=== PATIENT | male | born 1990 | race Caucasian/White ===

== ENCOUNTER 2017-03-30 10:57 | Emergency (ER) | payer BC, OTHER ==
[~2017-03-30] VITALS: Ht 167.6 cm; Wt 74.6 kg
[~2017-03-30 10:57] MED LIST: CELE10TA PO; DOCU10ELUD PO; PRIL40CA PO; SUCR1SUS PO; no meds
[2017-03-30 12:00] LABS: MEAN CORPUSCULAR HGB CONC 34.3 g/dl (32.0-36.5); MEAN CORPUSCULAR VOLUME 93.2 fl (80.0-96.0); RED CELL DISTRIBUTION WIDTH 12.8 % (11.5-14.5)
[2017-03-30 12:39] LABS: ALBUMIN/GLOBULIN RATIO 1.21 (1.00-1.93); ALKALINE PHOSPHATASE 86 U/L (45-117); ALT/SGPT 29 U/L (12-78); ANION GAP 8 MEQ/L (8-16); AST/SGOT 18 U/L (15-37); BILIRUBIN,DIRECT 0.2 MG/DL (0.0-0.2); BILIRUBIN,TOTAL 0.9 MG/DL (0.2-1.0); BLOOD UREA NITROGEN 10 MG/DL (7-18); CALCIUM LEVEL 9.2 MG/DL (8.5-10.1); CARBON DIOXIDE LEVEL 26 MEQ/L (21-32); CHLORIDE LEVEL 107 MEQ/L (98-107); CREATININE FOR GFR 1.16 MG/DL (0.70-1.30); GLOMERULAR FILTRATION RATE > 60.0 (>60); GLUCOSE, FASTING 124 MG/DL (70-105); POTASSIUM SERUM 3.8 MEQ/L (3.5-5.1); SODIUM LEVEL 141 MEQ/L (136-145); TOTAL PROTEIN 7.3 GM/DL (6.4-8.2)
[2017-03-30 13:12] LABS: METHADONE URINE NEGATIVE (NEGATIVE)
[2017-03-30 14:43] VITALS: BP 132/75
== END 2017-03-30 14:46 | disposition home or self-care (01) ==
LOC: M ED 10:57
DX: F32.9 Major depressive disorder, single episode, unspecified (principal); F14.10 Cocaine abuse, uncomplicated; F17.210 Nicotine dependence, cigarettes, uncomplicated

== ENCOUNTER → 2017-04-01 | Outpatient (CLI) | payer MEDICAID | LOC: M OUTALCOH 08:00 | PROVIDERS: ATTEND Psychiatry & Neurology Psychiatry | DX: F10.20 Alcohol dependence, uncomplicated (principal) ==

== ENCOUNTER 2017-06-11 11:41 | Emergency (ER) | payer MEDICAID, OTHER ==
[2017-06-11 14:13] VITALS: BP 131/71
== END 2017-06-11 16:35 | disposition home or self-care (01) ==
LOC: M ED 11:41
DX: F33.9 Major depressive disorder, recurrent, unspecified (principal); F43.0 Acute stress reaction

== ENCOUNTER 2018-03-23 14:54 | Emergency (ER) | payer MEDICAID, SELFPAY, OTHER ==
[2018-03-23 16:03] LABS: KETONE, URINE AUTO RFX NEGATIVE (NEGATIVE); LEUKOCYTE ESTERASE UR AUTO RFX 3+ (NEGATIVE); NITRITE, URINE AUTO RFX NEGATIVE (NEGATIVE); RBC, URINE AUTO RFX 8 /HPF (0-3); SPECIFIC GRAVITY UR AUTO RFX 1.026 (1.002-1.035); SQUAM EPITHELIAL CELL UR AURFX 0 /HPF (0-6); WBC, URINE AUTO RFX 133 /HPF (0-3)
[2018-03-23] MEDS: cefTRIAXone SOD 250 MG VIAL (J0696) IM ×2 (16:28)
[2018-03-23] MEDS: AZITHROMYCIN 250 MG TAB PO ×2 (16:30)
[2018-03-23 17:24] LABS: CHLAMYDIA DNA AMPLIFICATION NEGATIVE (NEGATIVE); GC DNA AMPLIFICATION POSITIVE (NEGATIVE)
== END 2018-03-23 16:51 | disposition home or self-care (01) ==
LOC: M ED 14:54
DX: N30.00 Acute cystitis without hematuria (principal); Z11.3 Encounter for screening for infections with a predominantly sexual mode of transmission; K21.9 Gastro-esophageal reflux disease without esophagitis; F41.9 Anxiety disorder, unspecified; F32.9 Major depressive disorder, single episode, unspecified; F17.200 Nicotine dependence, unspecified, uncomplicated
CPT/HCPCS: J0696

== ENCOUNTER → 2018-12-01 | Outpatient (REF) | payer OTHER ==
[~2018-12-01] MED LIST changes: +BACT800T5 PO
== END ==
LOC: M SFHCLERA 13:52
PROVIDERS: ATTEND Nurse Practitioner Family
DX: R53.81 Other malaise (principal)

== ENCOUNTER 2020-08-02 04:11 | Emergency (ER) | payer OTHER ==
[~2020-08-02] VITALS: Ht 170.2 cm; Wt 63.6 kg
[~2020-08-02 04:11] MED LIST changes: -DOCU10ELUD PO; +DOCU5LIQ PO
[2020-08-02] MEDS ORDERED: cloNIDine 0.1 MG TAB PO ONE (05:00)
[2020-08-02] MEDS ORDERED: hydrOXYzine 25 MG TAB PO ONE (05:00)
[2020-08-02] MEDS ORDERED: ONDANSETRON 4 MG ORAL DISINTEGRATING TAB PO ONE (05:00)
[2020-08-02] MEDS ORDERED: ONDA4TAB6 PO ×2 (05:02→05:37)
[2020-08-02] MEDS ORDERED: CLONI1TA PO ×2 (05:02→05:37)
[2020-08-02] MEDS ORDERED: HYDR-3363 PO ×2 (05:02→05:37)
[2020-08-02 05:09] VITALS: BP 148/80
[2020-08-02 05:15] VITALS: BP 126/75
== END 2020-08-02 05:35 | disposition home or self-care (01) ==
LOC: M ED 04:11
DX: F11.23 Opioid dependence with withdrawal (principal); F17.210 Nicotine dependence, cigarettes, uncomplicated
CPT/HCPCS: 99284; Q0162

== ENCOUNTER 2020-10-31 02:04 | Emergency (ER) | payer OTHER ==
[~2020-10-31] VITALS: Ht 170.2 cm; Wt 63.5 kg
[~2020-10-31 02:04] MED LIST changes: +CLONI1TA PO; +HYDR-3363 PO; +ONDA4TAB6 PO
--- OUTSIDE RECORDS SUMMARY | 2020-10-31 02:09 | CCD | Continuity of Care Document ---
Author Author Mirza BARRERA [employer] Organization Unknown Address [address] [place] [id number] Phone [phone] Problems Description No Information Available Social History Type Date Description Comments Sex Unknown Tobacco Use Start: Unknown Heavy tobacco smoker (more than 10 cigarettes/day) Smoking Status Reviewed: 08/07/20 Heavy tobacco smoker (more than 10 cigarettes/day) Allergies, Adverse Reactions, Alerts Description No Known Drug Allergies Medications Active Medications SIG Qnty Indications Ordering Provide r Date Clonidine HCL 0.1mg Tablets 1 twice a day as needed 60tabs Melissa Barrera NP 08/07/2020 Naltrexone HCL 50mg Tablets 1/2 tablet first one or two days, then 1 by mouth every day 30tabs F11.20 Melissa Barrera NP 08/07/2020 Immunizations Description No Information Available Vital Signs Description No Information Available Results Test Acquired Date Facility Test Result H/L Range Note Drugs Of Abuse Urine -RL 08/07/2020 [facility] Amphetamines,Urine NEGATIVE [id number] (Neg) Barbiturates,Urine NEGATIVE [id number] (Neg) Benzodiazepine,Urine NEGATIVE ROMXHI923 (Neg) Cannabinoids,Urine NEGATIVE FLQUYK96 (Neg) Cocaine,Urine NEGATIVE FLCNWC164 (Neg) Opiates,Urine POSITIVE REXOIZ096 (Neg) 1 Phencyclidine,Urine NEGATIVE MZFTVS75 (Neg) Please Note: THESE ARE SCREEN <SEE NOTE> 2 1 SPECIMEN HAS BEEN SENT FOR C ONFIRMATION. NOTE: Oxycodone is not sufficiently detected by this screening assay. A more sensitive assay is available upon request. 2 THESE ARE SCREENING IMMUNOAS SAY TESTS THAT ARE REPORTED POSITIVE WHEN THE RESULTS EXCEED THE THRESHOLD (CUTOFF) INDICATED. A LIST OF POTENTIAL INTERFERENCES FOR EACH METHOD CAN BE MADE AVAILABLE UPON REQUEST. A CONFIRMATORY ANALYSIS IS ORDERED ON ALL DRUG CLASSES SCREENING POSITIVE BY THIS METHOD. * * * * * * * * * * * * * * * THIS ASSAY IS NOT INTENDED TO BE USED FOR MONITORING MEDICATION COMPLIANCE. Unless otherwise specified, testing performed by [facility] [address] [place] [id number] Procedures Description No Information Available Medical Devices Description No Information Available Encounters Type Date Location Provider Dx Diagnosis Office Visit 08/07/2020 1:20p [facility] Melissa Barrera NP F11.20 Opioid dependence, uncomplicated F41.9 Anxiety disorder, unspecifie d F17.210 Nicotine dependence, cigaret pam, uncomplicated Z13.31 Encounter for screening for depression Assessments Date Code Description Provider 08/07/2020 F11.20 Opioid dependence, uncomplicated Melissa Barrera NP 08/07/2020 F41.9 Anxiety disorder, unspecified Ho Melissa jalloh NP 08/07/2020 F17.210 Nicotine dependence, cigarettes, uncomplicated Melissa Barrera NP 08/07/2020 Z13.31 Encounter for screening for depr ession Melissa Barrera NP Plan of Treatment 08/07/2020 - Melissa Barrera NP* F11.20 Opioid dependence, uncomplicated* New Medication:* Naltrexone HCL 50 mg - 1/2 tablet first one or two days, then 1 by mouth every day * F41.9 Anxiety disorder, unspecified * F17.210 Nicotine dependence, cigarettes, uncomplicated * Z13.31 Encounter for screening for depression Functional Status Description No Information Available Mental Status Description No Information Available Referrals Description No Information Available
--- OUTSIDE RECORDS SUMMARY | 2020-10-31 02:09 | CCD | Continuity of Care Document ---
Author Author Mirza BARRERA NP Organization Unknown Address [address] [place] [id number] Phone [phone] Problems Description No Information Available Social History Type Date Description Comments Sex Unknown Allergies, Adverse Reactions, Alerts Description No Known [...] Vital Signs Description No Information Available Results Description No Information Available Procedures Description No Information Available Medical Devices Description No Information Available Encounters Description No Information Available Assessments Description No Information Available Plan of Treatment 08/07/2020 - Melissa Barrera NP* All * New Medication:* Clonidine HCL 0.1 mg - 1 twice a day as needed * Naltrexone HCL 50 mg - 1/2 tablet first one or two days, then 1 by mouth every day Functional Status Description No Information Available Mental Status Description No Information Available Referrals Description No Information Available
--- OUTSIDE RECORDS SUMMARY | 2020-10-31 02:09 | CCD ---
Author Author [facility] Organization [facility] Address Unknown Phone Unavailable Care Team Providers Care Interlocker Maintainer Name Role Phone Nikos Bueno Unavailable PROBLEMS Type Condition ICD9-CM Code NEV97-GS Code Onset Dates Condition S tatus SNOMED Code Notes Problem Opioid abuse F11.10 Active 6689736 Problem Anxiety disorder, unspecified F41.9 Active 23 4586693 Problem Cannabis abuse, unspecified F12.10 Active 3734 4009 Problem Tobacco use disorder F17.200 Active 132683324 ALLERGIES No Known Allergies ENCOUNTERS from 1990 to 2020-09-17 Encounter Location Date Provider Diagnosis [facility] Resident [address] [place] [address] Aug, Nikos Bueno IMMUNIZATIONS No Information SOCIAL HISTORY Sex Assigned At : Social History Observation Description Sex Assigned At Unknown Audit Question Answer Notes Total Score: 0 Interpretation: Alcohol Education Sexual Hx: Question Answer Notes Had sex in the last 12 months (vaginal, oral, or anal)? Yes with Women only Use protection? No Alcohol Screening: Question Answer Notes Did you have a drink containing alcohol in the past year? No Points 0 Interpretation Negative REASON FOR REFERRAL No Information VITAL SIGNS No information MEDICATIONS Medication SIG (Take, Route, Frequency, Duration) Notes Start Da te End Date Status Ibuprofen 800 MG 1 tablet Orally four times d aily as needed for pain take with food for 10 day(s) Nov, Active Day Time Cold/Flu Relief 10-5-325 MG 2 capsules as nee ded Orally every 4 hrs for 5 day(s) Nov, Not-Taking PROCEDURES No Information RESULTS No Results REASON FOR VISIT no showed MEDICAL (GENERAL) HISTORY Type Description Date Medical History tobacco abuse Medical History depression and anxiety Medical History opioid abuse Medical History marijuana abuse Surgical History No Surgical history information Hospitalization History mental health 11/2012 [place] No Information Health Concerns No Information MEDICAL EQUIPMENT No Information MENTAL STATUS No Information FUNCTIONAL STATUS No Information ASSESSMENTS No Information PLAN OF TREATMENT No Information Insurance Providers Payer Name Payer Address Payer Phone Insured Name Patient Relati onship to Insured Coverage Start Date Coverage End Date [facility] DEPT [place] [phone] DANAE ZULUAGA self
--- OUTSIDE RECORDS SUMMARY | 2020-10-31 02:10 | CCD ---
Author Author [facility] Organization [facility] Address Unknown Phone Unavailable Care Team Providers Care Fire Control Technician B Name Role Phone Ben PORTER MD Unavailable Unavailable Ben PORTER MD Unavailable Unavailable Ben PORTER MD Unavailable Unavailable CHARLOTTEBen VASQUEZ MD Unavailable Unavailable Ben PORTER MD Unavailable Unavailable Ben PORTER MD Unavailable Unavailable Ben PORTER MD Unavailable Unavailable Ben PORTER MD Unavailable Unavailable CHARLOTTEBen VASQUEZ MD Unavailable Unavailable CHARLOTTEBen VASQUEZ MD Unavailable Unavailable CHARLOTTEBen VASQUEZ MD Unavailable Unavailable Ben PORTER MD Unavailable Unavailable Ben PORTER MD Unavailable Unavailable Ben PORTER MD Unavailable Unavailable Ben PORTER MD Unavailable Unavailable Ben PORTER MD Unavailable Unavailable Ben PORTER MD Unavailable Unavailable Ben PORTER MD Unavailable Unavailable Ben PORTER MD Unavailable Unavailable Ben PORTER MD Unavailable Unavailable Ben PORTER MD Unavailable Unavailable Ben PORTER MD Unavailable Unavailable Ben PORTER MD Unavailable Unavailable Ben PORTER MD Unavailable Unavailable Ben PORTER MD Unavailable Unavailable Ben PORTER MD Unavailable Unavailable Ben PORTER MD Unavailable Unavailable CHARLOTTE, Ben VILLARREAL MD Unavailable Unavailable CHARLOTTE, Ben VILLARREAL MD Unavailable Unavailable CHARLOTTE, Ben VILLARREAL MD Unavailable Unavailable CHARLOTTE, Ben VILLARREAL MD Unavailable Unavailable CHARLOTTE, Ben VILLARREAL MD Unavailable Unavailable CHARLOTTE, Ben VILLARREAL MD Unavailable Unavailable CHARLOTTE, Ben VILLARREAL MD Unavailable Unavailable CHARLOTTE, Ben VILLARREAL MD Unavailable Unavailable CHARLOTTE, Ben VILLARREAL MD Unavailable Unavailable CHARLOTTE, Ben VILLARREAL MD Unavailable Unavailable CHARLOTTE, Ben VILLARREAL MD Unavailable Unavailable CHARLOTTE, Ben VILLARREAL MD Unavailable Unavailable CHARLOTTE, Ben VILLARREAL MD Unavailable Unavailable CHARLOTTE, Ben VILLARREAL MD Unavailable Unavailable CHARLOTTE, Ben VILLARREAL MD Unavailable Unavailable CHARLOTTE, Ben VILLARREAL MD Unavailable Unavailable Lashawn Alegre MD Unavailable Unavailable Lashawn Alegre MD Unavailable Unavailable Lashawn Alegre MD Unavailable Unavailable Lashawn Alegre MD Unavailable Unavailable Lashawn Alegre MD Unavailable Unavailable Lashawn Alegre MD Unavailable Unavailable Lashawn Alegre MD Unavailable Unavailable REASON, L EDWARD DO Unavailable Unavailable REASON, L EDWARD DO Unavailable Unavailable REASON, L EDWARD DO Unavailable Unavailable REASON, L EDWARD DO Unavailable Unavailable REASON, L EDWARD DO Unavailable Unavailable REASON, L EDWARD DO Unavailable Unavailable REASON, L EDWARD DO Unavailable Unavailable REASON, L EDWARD DO Unavailable Unavailable REASON, L EDWARD DO Unavailable Unavailable REASON, L EDWARD DO Unavailable Unavailable REASON, L EDWARD DO Unavailable Unavailable REASON, L EDWARD DO Unavailable Unavailable REASON, L EDWARD DO Unavailable Unavailable REASON, L EDWARD DO Unavailable Unavailable REASON, L EDWARD DO Unavailable Unavailable REASON, L EDWARD DO Unavailable Unavailable REASON, L EDWARD DO Unavailable Unavailable REASON, L EDWARD DO Unavailable Unavailable REASON, L EDWARD DO Unavailable Unavailable REASON, L EDWARD DO Unavailable Unavailable REASON, L EDWARD DO Unavailable Unavailable REASON, L EDWARD DO Unavailable Unavailable REASON, L EDWARD DO Unavailable Unavailable REASON, L EDWARD DO Unavailable Unavailable REASON, L EDWARD DO Unavailable Unavailable REASON, L EDWARD DO Unavailable Unavailable REASON, L EDWARD DO Unavailable Unavailable REASON, L EDWARD DO Unavailable Unavailable REASON, L EDWARD DO Unavailable Unavailable REASON, L EDWARD DO Unavailable Unavailable REASON, L EDWARD DO Unavailable Unavailable REASON, L EDWARD DO Unavailable Unavailable REASON, L EDWARD DO Unavailable Unavailable REASON, L EDWARD DO Unavailable Unavailable REASON, L EDWARD DO Unavailable Unavailable REASON, L EDWARD DO Unavailable Unavailable REASON, L EDWARD DO Unavailable Unavailable REASON, L EDWARD DO Unavailable Unavailable REASON, L EDWARD DO Unavailable Unavailable REASON, L EDWARD DO Unavailable Unavailable REASON, L EDWARD DO Unavailable Unavailable REASON, L EDWARD DO Unavailable Unavailable REASON, L EDWARD DO Unavailable Unavailable REASON, L EDWARD DO Unavailable Unavailable REASON, L EDWARD DO Unavailable Unavailable REASON, L EDWARD DO Unavailable Unavailable REASON, L EDWARD DO Unavailable Unavailable REASON, L EDWARD DO Unavailable Unavailable REASON, L EDWARD DO Unavailable Unavailable REASON, L EDWARD DO Unavailable Unavailable REASON, L EDWARD DO Unavailable Unavailable REASON, L EDWARD DO Unavailable Unavailable REASON, L EDWARD DO Unavailable Unavailable REASON, L EDWARD DO Unavailable Unavailable REASON, L EDWARD DO Unavailable Unavailable REASON, L EDWARD DO Unavailable Unavailable REASON, L EDWARD DO Unavailable Unavailable REASON, L EDWARD DO Unavailable Unavailable REASON, L EDWARD DO Unavailable Unavailable REASON, L EDWARD DO Unavailable Unavailable REASON, L EDWARD DO Unavailable Unavailable REASON, L EDWARD DO Unavailable Unavailable REASON, L EDWARD DO Unavailable Unavailable REASON, L EDWARD DO Unavailable Unavailable REASON, L EDWARD DO Unavailable Unavailable Teresa Sesay, [place] Unavailable Unavailable Zesemaj Jr, Elier Dyson DO Unavailable Unavailable Zesemaj Jr, Elier Kiel DO Unavailable Unavailable Zewe Jr, Elier Kiel DO Unavailable Unavailable Zewe Jr, Elier Kiel DO Unavailable Unavailable Zewe Jr, Elier Kiel DO Unavailable Unavailable Delgado, E Melissa Unavailable Unavailable Delgado, E Melissa Unavailable Unavailable Delgado, E Melissa Unavailable Unavailable Delgado, E Melissa Unavailable Unavailable Delgado, E Melissa Unavailable Unavailable Delgado, E Melissa Unavailable Unavailable Delgado, E Melissa Unavailable Unavailable Delgado, E Melissa Unavailable Unavailable Delgado, E Melissa Unavailable Unavailable Delgado, E Melissa Unavailable Unavailable Delgado, E Melissa Unavailable Unavailable Delgado, E Melissa Unavailable Unavailable Delgado, E Melissa Unavailable Unavailable Delgado, E Melissa Unavailable Unavailable Delgado, E Melissa Unavailable Unavailable Delgado, E Melissa Unavailable Unavailable To, F Eiler PA Unavailable Unavailable To, F Elier PA Unavailable Unavailable To, F Elier PA Unavailable Unavailable To, F Elier PA Unavailable Unavailable To, F Elier PA Unavailable Unavailable To, F Elier PA Unavailable Unavailable To, F Elier PA Unavailable Unavailable Simpson, F Elier PA Unavailable Unavailable Simpson, F Elier PA Unavailable Unavailable To, F Elier PA Unavailable Unavailable DOMENICA IV, L DIANA PHOTOENGRAVING PROOFER APPRENTICE Unavailable Unavailable DOMENICA IV, L DIANA PHOTOENGRAVING PROOFER APPRENTICE Unavailable Unavailable DOMENICA IV, L DIANA PHOTOENGRAVING PROOFER APPRENTICE Unavailable Unavailable DOMENICA IV, L DIANA PHOTOENGRAVING PROOFER APPRENTICE Unavailable Unavailable DOMENICA IV, L DIANA PHOTOENGRAVING PROOFER APPRENTICE Unavailable Unavailable DOMENICA IV, L DIANA PHOTOENGRAVING PROOFER APPRENTICE Unavailable Unavailable DOMENICA IV, L DIANA PHOTOENGRAVING PROOFER APPRENTICE Unavailable Unavailable DOMENICA IV, L DIANA PHOTOENGRAVING PROOFER APPRENTICE Unavailable Unavailable DOMENICA IV, L DIANA PHOTOENGRAVING PROOFER APPRENTICE Unavailable Unavailable DOMENICA IV, L DIANA PHOTOENGRAVING PROOFER APPRENTICE Unavailable Unavailable DOMENICA IV, L DIANA PHOTOENGRAVING PROOFER APPRENTICE Unavailable Unavailable DOMENICA IV, L DIANA PHOTOENGRAVING PROOFER APPRENTICE Unavailable Unavailable DOMENICA IV, L DIANA PHOTOENGRAVING PROOFER APPRENTICE Unavailable Unavailable DOMENICA IV, L DIANA PHOTOENGRAVING PROOFER APPRENTICE Unavailable Unavailable DOMENICA IV, L DIANA PHOTOENGRAVING PROOFER APPRENTICE Unavailable Unavailable DOMENICA IV, L DIANA PHOTOENGRAVING PROOFER APPRENTICE Unavailable Unavailable DOMENICA IV, L DIANA PHOTOENGRAVING PROOFER APPRENTICE Unavailable Unavailable DOMENICA IV, L DIANA PHOTOENGRAVING PROOFER APPRENTICE Unavailable Unavailable DOMENICA IV, L DIANA PHOTOENGRAVING PROOFER APPRENTICE Unavailable Unavailable DOMENICA IV, L DIANA PHOTOENGRAVING PROOFER APPRENTICE Unavailable Unavailable DOMENICA IV, L DIAAN PHOTOENGRAVING PROOFER APPRENTICE Unavailable Unavailable DOMENICA IV, L DIANA PHOTOENGRAVING PROOFER APPRENTICE Unavailable Unavailable DOMENICA IV, L DIANA PHOTOENGRAVING PROOFER APPRENTICE Unavailable Unavailable DOMENICA IV, L DIANA PHOTOENGRAVING PROOFER APPRENTICE Unavailable Unavailable DOMENICA IV, L DIANA PHOTOENGRAVING PROOFER APPRENTICE Unavailable Unavailable DOMENICA IV, L DIANA PHOTOENGRAVING PROOFER APPRENTICE Unavailable Unavailable DOMENICA IV, L DIANA PHOTOENGRAVING PROOFER APPRENTICE Unavailable Unavailable DOMENICA IV, L DIANA PHOTOENGRAVING PROOFER APPRENTICE Unavailable Unavailable DOMENICA IV, L DIANA PHOTOENGRAVING PROOFER APPRENTICE Unavailable Unavailable DOMENICA IV, L DIANA PHOTOENGRAVING PROOFER APPRENTICE Unavailable Unavailable DOMENICA IV, L DIANA PHOTOENGRAVING PROOFER APPRENTICE Unavailable Unavailable DOMENICA IV, L DIANA PHOTOENGRAVING PROOFER APPRENTICE Unavailable Unavailable Kiel Hurtado Jr DO Unavailable Unavailable Re-disclosure Warning The records that you are about to access may contain information from federally-assisted alcohol or drug abuse programs. If such information is present, then the following federally mandated warning applies: This information has been disclosed to you from records protected by federal confidentiality rules (42 CFR part 2). The federal rules prohibit you from making any further disclosure of this information unless further disclosure is expressly permitted by the written consent of the person to whom it pertains or as otherwise permitted by 42 CFR part 2. A general authorization for the release of medical or other information is NOT sufficient for this purpose. The Federal rules restrict any use of the information to criminally investigate or prosecute any alcohol or drug abuse patient.The records that you are about to access may contain highly sensitive health information, the redisclosure of which is protected by Article 27-F of the [facility] Public Health law. If you continue you may have access to information: Regarding HIV / AIDS; Provided by facilities licensed or operated by the [facility] Office of Mental Health; or Provided by the [facility] Office for People With Developmental Disabilities. If such information is present, then the following [facility] mandated warning applies: This information has been disclosed to you from confidential records which are protected by state law. State law prohibits you from making any further disclosure of this information without the specific written consent of the person to whom it pertains, or as otherwise permitted by law. Any unauthorized further disclosure in violation of state law may result in a fine or care home sentence or both. A general authorization for the release of medical or other information is NOT sufficient authorization for further disc losure. Allergies and Adverse Reactions Type Description Substance Reaction Status Data Source(s ) Drug allergy Drug allergy No Known Allergies [facility] Family History Family Member Name Family Member Gender Family Member Status Date o f Status Description Data Source(s) Unknown Male Problem MEDENT ([facility]) Unknown Male Problem MEDENT ([facility] Unknown Unknown Problem [facility] ([facility] Encounters Encounter Providers Location Date Indications Data Source(s ) Unknown [address] [facility] [address] 09/16/2020 12:00:00 AM EST eCW1 ([facility]) Outpatient Attender: Melissa Yun 08/07/2020 12:20:00 PM EST MEDENT ([facility]) Outpatient CPSCAORT-LABEJN 08/05/2020 10:03:00 AM EST [facility] Inpatient Attender: LOLY REASON DOAdmitter: LOLY MEJIA N DO ED-MSP 08/04/2020 11:29:00 PM EST - 08/06/2020 01:45:00 PM EST F11.20 [facility] F11.20 Patient discharged. Outpatient ED-CHEPAT 01/10/2020 02:00 :00 PM EDT - 01/10/2020 02:01:00 PM EDT [facility] PSD Patient discharged. Outpatient CPSCAORT-LABEJCici 01/07/2020 10:10:00 AM EDT [facility] Inpatient Attender: Jr Kiel Morrell OAttender: Kiel Hurtado JrAdmitter: Kiel Hurtado Jr [facility] 01/06/2020 05:14:00 PM EDT - 01/08/2020 01:15:00 PM EDT F19.20 [facility] F19.20 Patient discharged. Outpatient Attender: DIANA METZGER IV ED-[facility] 2019 03:28:00 PM EDT - 12/18/2019 03:29:00 PM EDT [facility] PSD Patient discharged. Outpatient Attender: DIANA METZGER ED-[facility] 2019 02:37:00 PM EDT - 12/13/2019 02:38:00 PM EDT [facility] PSD Patient discharged. Outpatient Attender: DIANA DOMENICA LENA ED-[facility] 2019 12:53:00 PM EDT - 12/04/2019 12:54:00 PM EDT [facility] PSD Patient discharged. Outpatient Attender: DIANA DOMENICA LENA [facility] 2019 10:09:00 AM EST - 11/20/2019 10:10:00 AM EST [facility] Patient discharged. Outpatient Attender: DIANA METZGER IVAttender: MARTHA Sesay [facility] 11/13/2019 10:08:00 AM EST - 11/13/2019 10:09:00 AM EST [facility] Patient discharged. Outpatient Attender: DIANA METZGER IV [facility] 2019 03:58:00 PM EST - 10/17/2019 03:59:00 PM EST [facility] Patient discharged. Outpatient Attender: MARTHA Sesay -[facility] 10/11/2019 02:04:00 PM EST - 10/11/2019 02:05:00 PM EST [facility] Patient discharged. Outpatient Attender: DIANA METZGER IV -[facility] 2019 03:36:00 PM EST - 10/03/2019 03:37:00 PM EST [facility] PSD Patient discharged. Outpatient Attender: MARTHA Sesay ED-[facility] 10/02/2019 11:02:00 AM EST - 10/02/2019 11:03:00 AM EST [facility] PSD Patient discharged. Outpatient Attender: DIANA METZGER IV [facility] 2018 01:29:00 PM EST - 09/19/2019 01:30:00 PM EST [facility] PSD Patient discharged. [facility]2019 10:29:00 AM [facility] Inpatient Attender: CHERELLE PORTER MDAdmitter: CHERELLE PORTER MD ED-MSP 09/13/2019 08:50:00 PM EST - 09/15/2019 04:45:00 PM [facility]9.20 [facility] F19.20 Patient discharged. Preadmit Attender: Elier OSULLIVAN ED-ED 09/13/2019 07:18: 00 PM [facility] DETOX [facility]OX [facility]/08/2019 02:30:00 PM [facility] Inpatient Attender: Tyrell Alegre MDAdmitter: Tyrell Brewer D[facility] 09/08/2019 11:43:00 AM EST - 09/08/2019 05:29:00 PM [facility] F1920 Patient discharged. Medications Medication Brand Name Start Date Product Form Dose Route Admi nistrative Instructions Pharmacy Instructions Status Indications Reaction Description Data Source(s) Clonidine Hydrochloride 0.1 MG Oral Tablet Clonidine HCL 08/07/2020 12:00:00 AM EST active MEDENT ([facility]) Naltrexone hydrochloride 50 MG Oral Tablet Naltrexone HCL 08/07/2020 12:00:00 AM EST ORAL active MEDENT ([facility]) 8-2 mg 11/20/2019 12:00:00 AM EST film 28 PLACE ONE FILM UNDER THE TONGUE TWICE A DAY MAXIMUM DAILY DOSE = 2 PLACE ONE FILM UNDER THE TONGUE TWICE A DAY MAXIMUM DAILY DOSE = 2 SOLD: 11/20/2019 [facility] 8-2 mg 11/13/2019 12:00:00 AM EST film 14 PLACE ONE FILM UNDER THE TONGUE TWICE A DAY MAXIMUM DAILY DOSE = 2 PLACE ONE FILM UNDER THE TONGUE TWICE A DAY MAXIMUM DAILY DOSE = 2 SOLD: 11/13/2019 [facility] 8-2 mg 10/17/2019 12:00:00 AM EST film 28 PLACE ONE FILM UNDER THE TONGUE TWICE A DAY MAXIMUM DAILY DOSE = 2 PLACE ONE FILM UNDER THE TONGUE TWICE A DAY MAXIMUM DAILY DOSE = 2 SOLD: 10/17/2019 [facility] 8-2 mg 10/11/2019 12:00:00 AM EST film 14 PLACE 1 FILM UNDER THE TONGUE TWO TIMES A DAY MAXIMUM DAILY DOSE = 2 PLACE 1 FILM UNDER THE TONGUE TWO TIMES A DAY MAXIMUM DAILY DOSE = 2 SOLD: 10/11/2019 [facility] 8-2 mg 10/03/2019 12:00:00 AM EST film 14 PLACE ONE FILM UNDER THE TONGUE TWICE A DAY MAXIMUM DAILY DOSE = [address] ONE FILM UNDER THE TONGUE TWICE A DAY MAXIMUM DAILY DOSE = 2 FILMS SOLD: 10/03/2019 [facility] 12-3 mg 09/26/2019 12:00:00 AM EST film 8 PLACE ONE FILM UNDER THE TONGUE EVERY DAY MAXIMUM DAILY DOSE = 1 PLACE ONE FILM UNDER THE TONGUE EVERY DA Y MAXIMUM DAILY DOSE = 1 SOLD: 09/26/2019 [facility] 4 mg/actuation 09/19/2019 12:00:00 AM EST spray,non-aerosol 2 USE DIRECTED NEEDED FOR RESPIRATORY DEPRESSION USE DIRECTED NEEDED FOR RESPIRATORY DEPRESSION SOLD: 09/19/2019 [facility] 12-3 mg 09/19/2019 12:00:00 AM EST film 8 PLACE ONE FILM UNDER THE TONGUE EVERY DAY MAXIMUM DAILY DOSE = [address] ONE FILM UNDER THE TONGUE EVERY DA Y MAXIMUM DAILY DOSE = 1 FILM SOLD: 09/19/2019 [facility] 8-2 mg 09/15/2019 12:00:00 AM EST film 3 PLACE ONE FILM UNDER THE TONGUE EVERY DAY MAXIMUM DAILY DOSE = [address] ONE FILM UNDER THE TONGUE EVERY DA Y MAXIMUM DAILY DOSE = 1 FILM SOLD: 09/15/2019 [facility] Clonidine Hydrochloride 0.1 MG Oral Tablet CLONIDINE HCL 09/15/2019 12:00:00 AM EST tablet 30 TAKE ONE TABLET BY MOUTH AT BEDTIME TAKE ONE TABLET BY MOUTH AT BEDTIME SOLD: 09/15/2019 [facility] Insurance Providers Payer name Policy type / Coverage type Policy ID Covered democrat ID Covered democrat's relationship to powers Policy Powers Plan Information VAMSHI [id number] SP [id number] [facility] [id number] S [id number] [place] Medicaid/CHP/FHP Commercial [id number] Self [id number] PRIVATE PAY DANAE ZULUAGA 18 PHI VINICIUS ZULUAGA [facility] [id number] 18 [id number] ANSI-Medicaid [id number] ANSI-Commercial [id number] ANS-Medicaid [id number] ANSI-Commercial [id number] [facility] Commercial [id number] Self [id number] [facility] Commercial [id number] Self [id number] MEDICAID [id number] SP [id number] SELF PAY ONLY [id number] SP [id number] [facility] [id number] SP [id number] FORMERLY [facility] COMM[id number] [id number] [facility] PLAN [id number] SP [id number] [facility] GENERAL ASSUR CLAR[place] [id number] Workers Compensation Workers Compensation Self Workers Compensation Workers Compensation Self [employer] GENERAL INSURANCE P [id number] S [id number] SELF PAY UNAVAILABLE SP UNAVAILA BLE POMCO [id number] MO2 [id number] Problems, Conditions, and Diagnoses Code Display Name Description Problem Type Effective Dates Data Source(s) F15.20 Other stimulant dependence, uncomplicate d OTHER STIMULANT DEPENDENCE, UNCOMPLICATED Diagnosis 08/04/2020 11:29:00 PM EST Chhaya pichardo F12.20 Cannabis dependence, uncomplicated CANNABIS DEPE NDENCE, UNCOMPLICATED Diagnosis 08/04/2020 11:29:00 PM [facility] F17.210 Nicotine dependence, cigarettes, uncompl icated NICOTINE DEPENDENCE, CIGARETTES, UNCOMPLICATED Diagnosis 08/04/2020 11:29:00 PM [facility] Z53.29 Procedure and treatment not carried out because of patient's decision for other reasons PROC/TRTMT NOT CRD OUT BEC PT DECISION FOR OTH REASONS Diagn osis 08/04/2020 11:29:00 PM [facility] F11.23 Opioid dependence with withdrawal OPIOID DEPENDE NCE WITH WITHDRAWAL Diagnosis 08/04/2020 11:29:00 PM [facility] F11.20 Opioid dependence, uncomplicated OPIOID DEPENDEN CE, UNCOMPLICATED Diagnosis 08/04/2020 11:29:00 PM [facility] K04.7 Periapical abscess without sinus PERIAPICAL ABSC ESS WITHOUT SINUS Diagnosis 01/06/2020 05:14:00 PM EDT [facility] Z68.27 Body mass index (BMI) 27.0-27.9, adult B EMILIA MASS INDEX (BMI) 27.0-27.9, ADULT Diagnosis 01/06/2020 05:14:00 PM EDT [facility] spital E66.3 Overweight OVERWEIGHT Diagnosis 01/06/2020 05:14:00 PM ED [facility] E05.90 Thyrotoxicosis, unspecified without thyr otoxic crisis or storm THYROTOXICOSIS, UNSP WITHOUT THYROTOXIC CRISIS OR STORM Diagnosis 01/06/2020 05:14:00 PM T [facility] D72.829 Elevated white blood cell count, unspeci fied ELEVATED WHITE BLOOD CELL COUNT, UNSPECIFIED Diagnosis 01/06/2020 05:14:00 PM EDT [facility] spital E86.0 Dehydration DEHYDRATION Diagnosis 01/06/2020 05:14:00 PM T [facility] Z76.0 Encounter for issue of repeat prescripti on ENCOUNTER FOR ISSUE OF REPEAT PRESCRIPTION Diagnosis 12/13/2019 02:37:00 PM EDT [facility] F12.10 Cannabis abuse, uncomplicated CANNABIS ABUSE, UNCOMPLI CATED Diagnosis 09/13/2019 08:50:00 PM [facility] F17.213 Nicotine dependence, cigarettes, with wi thdrawal NICOTINE DEPENDENCE, CIGARETTES, WITH WITHDRAWAL Diagnosis 09/13/2019 08:50:00 PM [facility] F14.20 Cocaine dependence, uncomplicated COCAINE DEPEND ENCE, UNCOMPLICATED Diagnosis 09/13/2019 08:50:00 PM [facility] A56.2 Chlamydial infection of genitourinary tr act, unspecified CHLAMYDIAL INFECTION OF GENITOURINARY TRACT, UNSPECIFIED Diagnosis 09/13/20 19 08:50:00 PM [facility] Surgeries/Procedures Procedure Description Date Indications Data Source(s) Medication Management for Substance Abuse Treatment, N aloxone MEDS MGMT FOR SUBSTANCE ABUSE TREATMENT, NALOXONE 08/05/2020 12:00:00 AM [facility] Individual Counseling for Substance Abuse Treatment, C ontinuing Care INDIV DROPPER TANK STORAGE FOR SUBSTANCE ABUSE TREATMENT, CONTINUING CARE 08/05/2020 12:00:00 AM [facility] Detoxification Services for Substance Abuse Treatment DETOXIFICATION SERVICES FOR SUBSTANCE ABUSE TREATMENT 08/05/2020 12:00:00 AM [facility] Individual Counseling for Substance Abuse Treatment, C ognitive-Behavioral INDIV DROPPER TANK STORAGE FOR SUBSTANCE ABUSE, COGNITIVE BEHAVIORAL 01/07/2020 12:00:00 AM T [facility] Group Counseling for Substance Abuse Treatment, Cognit evangelina-Behavioral GROUP DROPPER TANK STORAGE FOR SUBSTANCE ABUSE, COGNITIVE BEHAVIORAL 09/14/2019 12:00:00 AM [facility] IADNA NEISSERIA GONORRHOEAE AMPLIFIED PROBE TQ 019 12:00:00 AM [facility] IADNA CHLAMYDIA TRACHOMATIS AMPLIFIED PROBE TQ 019 12:00:00 AM [facility] THYROID STIMULATING HORMONE TSH 09/08/2019 12:00:00 AM [facility] IAAD EIA HEPATITIS B SURFACE ANTIGEN 09/08/2019 12:00: 00 AM [facility] CREATINE KINASE TOTAL 09/08/2019 12:00:00 AM [facility] HEPATITIS C ANTIBODY 09/08/2019 12:00:00 AM [facility] URINALYSIS MICROSCOPIC ONLY 09/08/2019 12:00:00 AM [facility] BLOOD COUNT COMPLETE AUTO&AUTO DIFRNTL WBC COUNT 09/08 12:00:00 AM [facility] [id number] 09/08/2019 12:00:00 AM EST [facility] [id number] 09/08/2019 12:00:00 AM [facility] MAGNESIUM 09/08/2019 12:00:00 AM [facility] PHOSPHORUS INORGANIC 09/08/2019 12:00:00 AM [facility] HEPATIC FUNCTION PANEL 09/08/2019 12:00:00 AM [facility] COMPREHENSIVE METABOLIC PANEL 09/08/2019 12:00:00 AM E [facility] Results ID Date Data Source [id number] 09/23/2020 10:17:00 AM EST [facility] Name Value Range Interpretation Code Description Data Asha rce(s) Supporting Document(s) Respiratory specimen severe acute respir atory syndrome coronavirus 2 (SARS-CoV-2) RNA [facility] This lab was ordered by [facility] rachel and reported by . ID Date Data Source [id number] 08/07/2020 08:55:20 PM EST [facility] [place] [facility] [facility] Name Value Range Interpretation Code Description Data Asha rce(s) Supporting Document(s) AMPHETAMINES,URINE (NEG) [facility] [place] [facility] BARBITURATES,URINE (NEG) [facility] [place] [facility] BENZODIAZEPINE,URINE (NEG) Laborator y [place] [facility] CANNABINOIDS,URINE (NEG) [facility] [place] [facility] COCAINE,URINE (NEG) Laboratory [facility] OPIATES,URINE (NEG) A [facility] SPECIMEN HAS BEEN SENT FOR CONFIRMATION. NOTE: Oxycodone is not sufficientlydetected by this screening assay. A moresensitive assay is available upon request. PHENCYCLIDINE,URINE (NEG) [facility] [place] [facility] PLEASE NOTE: [facility] ARE REPORTED POSITIVE WHEN THE RESULT SEXCEED THE THRESHOLD (CUTOFF) INDICATED. ALIST OF POTENTIAL INTERFERENCES FOR EACHMETHOD CAN BE MADE AVAILABLE UPON REQUEST.A CONFIRMATORY ANALYSIS IS ORDERED ONALL DRUG CLASSES SCREENING POSITIVE BYTHIS METHOD.* * * * * * * * * * * * * * *THIS ASSAY IS NOT INTENDED TO BE USED FORMONITORING MEDICATION COMPLIANCE. ID Date Data Source [id number] 08/12/2020 04:19:50 PM EST [facility] [place] [facility] [facility] [place] [facility] Name Value Range Interpretation Code Description Data Asha rce(s) Supporting Document(s) OPIATES URINE 6 AM <10 ng/mL [facility] [place] [facility] [place] [facility] [employer] INTERPRETIVE INFORMATION: Opiates, Urin e, Quantitative Methodology: Quantitative Liquid Chromatography-Tandem Mass Spectrometry Positive cutoff: 20 ng/mL except as specified below 6- acetylmorphine 10 ng/mL For medical purposes only; not valid for forensic use. Identification of specific drug(s) taken by specimen donor is problematic due to common metabolites, some of which are prescription drugs themselves. The absence of expected drug(s) and/or drug metabolite(s) may indicate non- compliance, inappropriate timing of specimen collection relative to drug admin istration, poor drug absorption, diluted/adulterated urine, or limitations of testing. All drug analytes covered are in the non-glucuronidated (free) forms. The concentration value must be greater than or equal to the cutoff to be reported as positive. A very small amount of an unexpected drug analyte in the presence of a large amount of an expected drug analyte may reflect pharmaceutical impurity. Interpretive questions should be directed to the laboratory. Test developed and characteristics determined by [facility]. See Compliance Statement B: [email or web address]/CS OPIATES CODEINE <20 ng/mL Laboratory [place] [facility] [place] [facility] OPIATES MORPHINE 266 ng/mL Laboratory [facility] [employer] Consistent with use of a drug containin g morphine. High concentrations may reflect metabolism of heroin. OPIATES HYDROCODONE <20 ng/mL [facility] [place] [facility] [place] [facility] OPIATES HYDROMORPHO <20 ng/mL [facility] [place] [facility] [place] [facility] OPIATES OXYCODONE <20 ng/mL Laboratory [facility] [place] [facility] OPIATES OXYMORPHONE <20 ng/mL [place] [facility] [place] [facility] OPIATES NOROXYCODONE <20 [facility]ator [facility] [place] [facility] Unit: ng/mL OPIATES NOROXYMORPHO <20 [facility]ator [facility] [place] [facility] Unit: ng/mL OPIATES NORHYDROCODO <20 Laborator [facility] [place] [facility] [place] [facility] Unit: ng/mL Performed By: [email or web address] [address] [place] [address] Computer Network Support Specialist: Glenda Villarreal MD ID Date Data Source [id number] 08/12/2020 06:59:24 PM EST [facility] Name Value Range Interpretation Code Description Data Asha rce(s) Supporting Document(s) BUPRENORPHINE UR 2 ng/mL [facility] INTERPRETIVE INFORMATION: Buprenorphine and Metabolites, Urine, Quantitative Methodology: Quantitative Liquid Chromatography-Tandem Mass Spectrometry Positive cutoff: Buprenorphine 2 ng/mL Norbuprenorphine 2 ng/mL Buprenorphine glucuronide 5 ng/mL Norbuprenorphine glucuronide 5 ng/mL Naloxone 100 ng/mL For medical purposes only; not valid for forensic use. The presence of metabolite(s) without parent drug is common and may indicate use of parent drug during the prior week. Naloxone is included to detect addition of a naloxone-containing drug directly into the urine. The absence of expected drug(s) and/or drug metabolite(s) may indicate non-compliance, inappropriate timing of specimen collection relative to drug administration, poor drug absorption, diluted/adulterated urine, or limitations of testing. The concentration value must be greater than or equal to the cutoff to be reported as positive. Interpretive questions should be directed to the laboratory. Test developed and characteristics determined by [facility]. See Compliance Statement B: [email or web address] NORBUPRENORPHINE UR 69 ng/mL Laboratory [place] [facility] BUPRENORPHINE GLUCU 24 Laboratory [place] [facility] Unit: ng/mL Consistent with use of a bup renorphine-containing drug. Glucuronide concentrations are semi-quantitative. NORBUPR GLUCURONIDE 121 Laboratory [place] [facility] Unit: ng/mL NALOXONE,URINE <100 ng/mL Laboratory [facility] Performed By: [facility] [address] [place] [address] Computer Network Support Specialist: Glenda Villarreal MD ID Date Data Source [id number] 09/11/2020 11:56:56 AM EST [facility] [place] [facility] [facility] Name Value Range Interpretation Code Description Data Asha rce(s) Supporting Document(s) SPECIMEN DESCRIPTION [facility]ator [facility] [place] [facility] C. TRACHOMATIS (NEG) Laboratory [facility] THIS ASSAY AMPLIFIES AND DETECTS TARGETD NA USING VACUUM CASTER- MEDIATEDAMPLIFICATIONTESTING PERFORMED ON [employer] N. GONORRHOEAE (NEG) Laboratory [place] [facility] [facility] THIS ASSAY AMPLIFIES AND DETECTS TARGETD NA USING VACUUM CASTER- MEDIATEDAMPLIFICATIONTESTING PERFORMED ON [employer] COMMENT [facility] [place] [facility] SPECIMEN COLLECTIONTHE PATIENT VEDA ULD NOT HAVE URINATED FOR ATLEAST ONE HOUR PRIOR TO COLLECTION.FEMALE PATIENTS SHOULD NOT CLEANSE PRIOR TOCOLLECTING URINE SPECIMENS THIS MAYINTERFERE WITH THE TEST.THE PATIENT SHOULD PROVIDE 20-30 ML OF THEINITIAL URINE STREAM INTO A CONTAINERWITHOUT PRESERVATIVES. ID Date Data Source [id number] 08/07/2020 01:18:00 PM EST [facility] ([facility]) Name Value Range Interpretation Code Description Data Asha rce(s) Supporting Document(s) Amphetamines,Urine Laboratory test result [facility] ([facility]) Barbiturates,Urine Laboratory test result [facility] ([facility]) Cocaine,Urine Laboratory test result [facility] ([facility]) Benzodiazepine,Urine Laboratory test result [facility] ([facility]) Cannabinoids,Urine Laboratory test result [facility] ([facility]) Opiates,Urine Laboratory test result [facility] ([facility]) SPECIMEN HAS BEEN SENT FOR CONFIRMATION. NOTE: Oxycodone is not sufficiently detected by this screening assay. A more sensitive assay is available upon request. Phencyclidine,Urine Laboratory test result [facility] ([facility]) Please Note: Laboratory test result MEDE NT ([facility]) THESE ARE SCREENING IMMUNOASSAY TESTS TH AT ARE REPORTED POSITIVE WHEN THE RESULTS EXCEED [...] Unless otherwise specified, testing performed by [facility] [place] [facility], [address] [address] ID Date Data Source [id number] 08/06/2020 02:04:00 PM [facility] Name Value Range Interpretation Code Description Data Asha rce(s) Supporting Document(s) Chlamydia,Urine result Negative Normal (applies to non-n umeric results) [facility] Test Performed By: [facility] [address] [place] [address] Director: Angela Blanca MD . GC Urine result Negative Normal (applies to non-numeric results) [facility] Test Performed By: [facility] [address] [place] [address] Director: Angela Blanca MD . Methodology: Second generation nucleic acid amplification. ID Date Data Source [id number] 08/05/2020 01:19:00 AM EST [facility] Name Value Range Interpretation Code Description Data Asha rce(s) Supporting Document(s) Color,Urine Colorl-Dk Y Normal (applies to non-numeric res ults) [facility] Clarity,Urine Clear Normal (applies to non-numeric re sults) [facility] Specific [place],Urine 1.005-1.030 Normal (applies to non- numeric results) [facility] pH,Urine 5.0-8.0 Normal (applies to non-numeric resul ts) [facility] Protein,Urine Negative Normal (applies to non-numeric re sults) [facility] Glucose,Urine Negative Normal (applies to non-numeric re sults) [facility] Ketones,Urine Negative Normal (applies to non-numeric re sults) [facility] Blood,Urine Negative Normal (applies to non-numeric resu lts) [facility] Bilirubin,Urine Negative Normal (applies to non-numeric results) [facility] Urobilinogen,Urine 0.2-1.0 Normal (applies to non-numer ic results) [facility] Leukocyte Esterase,Urine Negative Normal (applies to non -numeric results) [facility] Nitrite,Urine Negative Normal (applies to non-numeric re sults) [facility] ID Date Data Source [id number] 08/05/2020 01:17:00 AM EST [facility] Name Value Range Interpretation Code Description Data Asha rce(s) Supporting Document(s) UDS Benzodiazepines Screen Negative Normal (applies to n on-numeric results) [facility] UDS Cocaine Screen Negative Normal (applies to non-numer ic results) [facility] UDS Ampetamine Screen Negative [facility] UDS Cannabinoids Screen Negative Normal (applies to non- numeric results) [facility] UDS Opiates Screen Negative Normal (applies to non-numer ic results) [facility] UDS Barbiturates Screen Negative Normal (applies to non- numeric results) [facility] ID Date Data Source [id number] 08/04/2020 09:27:00 PM EST [facility] First test? YESEmployed in healthcare? NOSymptomatic per CDC? NOHospitalized? NOICU? NOResident in congregated care? ex long-term, [facility] NO? NO Name Value Range Interpretation Code Description Data Asha rce(s) Supporting Document(s) SARS-CoV-2 RNA Negative Normal (applies to non-numeric r esults) [facility] Negative results should be treated as pr esumptive and, if inconsistent with clinical signs and symptoms or necessary for patient management, should be tested with different authorized or cleared molecular tests. Negative results do not preclude SARS-CoV-2 infection and should not be used as the sole basis for patient management decisions. Negative results should be considered in the context of a patient???s recent exposures, history and the presence of clinical signs and symptoms consistent with COVID-19. This test has not been FDA cleared or approved; this test has been authorized by FDA under an Emergency Use Authorization for use by laboratories certified under the Clinical Laboratory Improvement Amendments of 1988 (CLIA), 42 U.S.C. ???263a, to perform moderate complexity/high complexity tests and at the Point of Care (POC), i.e., in patient care settings operating under a CLIA Certificate of Waiver, Certificate of Compliance, or Certificate of Accreditation. Factsheets for healthcare providers: https://www.fda.gov/media/906640/download Factsheets for patients: https://www.fda.gov/media/815442/download The ID NOW Instrument is a rapid molecular in vitro diagnostic test utilizing an isothermal nucleic acid amplification technology intended for the qualitative detection of nucleic acid from the SARS-CoV-2 viral RNA. THIS IS A STATE REPORTABLE COMMUNICABLE DISEASE. Manual entry verified by Radha Diane 08/04/202125 ID Date Data Source [id number] 09/02/2020 05:03:00 PM EST [facility] Value Range Interpretation Code Description Data Asha rce(s) Supporting Document(s) Hepatitis A Ab,IgG result Normal (applies to no n-numeric results) [facility] Result indicates immunity to hepatitis A infection from either vaccination or past exposure to hepatitis A. False-positive results may be observed in patients with CMV antibodies or heterophilic antibodies. REFERENCE VALUE Unvaccinated: Negative Vaccinated: Positive Test Performed by: [place] [address] [employer]: Boris Vang M.D. Ph.D.; CLIA# [id number] ID Date Data Source [id number] 09/02/2020 05:03:[address] [facility] Value Range Interpretation Code Description Data Asha rce(s) Supporting Document(s) Hep Bs Ag Result T-Test Nonreactive Normal (applies to non -numeric results) [facility] Test Performed By: [facility] rachel Laboratory [address] [place] [address] Director: Angela Blanca MD ID Date Data Source [id number] 09/02/2020 05:03:00 PM EST [facility] Value Range Interpretation Code Description Data Asha rce(s) Supporting Document(s) Syphilis Serology Nonreactive Normal (applies to non-numer ic results) [facility] Test Performed By: [facility] rachel Laboratory [address] [place] [address] Director: Angela Blanca MD ID Date Data Source [id number] 09/02/2020 05:03:00 PM EST [facility] Value Range Interpretation Code Description Data Asha rce(s) Supporting Document(s) Hep C Ab-T Test Nonreactive Normal (applies to non-numeric results) [facility] Test Performed By: [facility] Laboratory [address] [place] [address] Director: Angela Blanca MD ID Date Data Source [id number] 09/02/2020 05:03:00 PM [facility] Name Value Range Interpretation Code Description Data Asha rce(s) Supporting Document(s) Chlamydia,Urine Negative Normal (applies to non-numeric results) [facility] Test Performed By: [facility] Laboratory [address] [place] [address] Director: Angela Blanca MD . GC Urine Negative Normal (applies to non-numeric resul ts) [facility] Test Performed By: [place] [address] Director: Angela Blanca MD . Methodology: Second generation nucleic acid amplification. ID Date Data Source [id number] 09/02/2020 05:03:00 PM [facility] Name Value Range Interpretation Code Description Data Asha rce(s) Supporting Document(s) CPK 49 U/L 39-308 Normal (applies to non-numeric resul ts) [facility] Test Performed By: [facility] [address] [place] [address] Director: Angela Blanca MD ID Date Data Source [id number] 08/06/2020 09:34:00 PM [facility] Name Value Range Interpretation Code Description Data Asha rce(s) Supporting Document(s) Hepatitis A Ab,IgG result Normal (applies to no n-numeric results) [facility] Result indicates immunity to hepatitis A infection from either vaccination or past exposure to hepatitis A. False-positive results may be observed in patients with CMV antibodies or heterophilic antibodies. REFERENCE VALUE Unvaccinated: Negative Vaccinated: Positive Test Performed by: [facility] [place] [address] [employer]: Boris Vang M.D. Ph.D.; CLIA# [id number] ID Date Data Source [id number] 08/05/2020 03:21:00 PM [facility] Value Range Interpretation Code Description Data Asha rce(s) Supporting Document(s) CPK result 49 U/L 39-308 Normal (applies to non-numeric resul ts) [facility] Test Performed By: [facility] [address] [place] [address] Director: Angela Blanca MD ID Date Data Source [id number] 08/05/2020 03:21:00 PM [facility] Value Range Interpretation Code Description Data Ahsa rce(s) Supporting Document(s) Hepatitis C Virus Ab result Nonreactive Norm al (applies to non-numeric results) [facility] Test Performed By: [facility] [address] [place] [address] Director: Angela Blanca MD ID Date Data Source [id number] 08/05/2020 03:21:00 PM [facility] Value Range Interpretation Code Description Data Asha rce(s) Supporting Document(s) Syphilis Serology result Nonreactive Normal (applies to non-numeric results) [facility] Test Performed By: [facility] [address] [place] [address] Director: Angela Blanca MD ID Date Data Source [id number] 08/05/2020 03:21:00 PM [facility] Value Range Interpretation Code Description Data Asha rce(s) Supporting Document(s) Hep Bs Ag result T-Test Nonreactive Normal (applies to non -numeric results) [facility] Test Performed By: [facility] [address] [place] [address] Director: Angela Blanca MD ID Date Data Source [id number] 08/05/2020 03:04:00 AM EST [facility] Name Value Range Interpretation Code Description Data Asha rce(s) Supporting Document(s) White Blood Count 3.5-10.5 Normal (applies to non-numeri c results) [facility] Red Blood Count 4.30-5.70 Normal (applies to non-numeric results) [facility] Hemoglobin 13.5-17.5 Normal (applies to non-numeric resul ts) [facility] Hematocrit 38.8-50.0 Normal (applies to non-numeric resul ts) [facility] Mean Corpuscular Volume 81.2-95.1 Normal (applies to non- numeric results) [facility] Mean Corpuscular Hgb 25.6-32.2 Normal (applies to non-num meme results) [facility] Mean Corpuscular Hgb Conc 32.0-36.0 Normal (applies to no n-numeric results) [facility] Red Cell Distribution Width 11.8-15.6 Normal (appli es to non-numeric results) [facility] Platelet Count 234 x10 3/uL 150-450 Normal (applies to non-numeric results) [facility] Mean Platelet Volume 9.4-12.4 Below low normal [facility] Neutrophils% (Auto) 31.0-71.0 Normal (applies to non-nume oliver results) [facility] Lymphocytes% (Auto) 20.0-55.0 Below low normal [facility] Monocytes% (Auto) 4.0-12.0 Above high normal [facility] Eosinophils% (Auto) 1.0-8.0 Normal (applies to non-nume oliver results) [facility] Basophils% (Auto) 0.0-2.0 Normal (applies to non-numeri c results) [facility] Immature Granulocytes% (Auto) 0.0-2.0 Normal (natty lies to non-numeric results) [facility] Neutrophils# (Auto) 1.50-6.20 Above high normal [facility] Lymphocytes# (Auto) 1.20-4.00 Normal (applies to non-nume oliver results) [facility] Monocytes# (Auto) 0.00-0.90 Above high normal [facility] Eosinophils# (Auto) 0.00-0.50 Normal (applies to non-nume oliver results) [facility] Basophils# (Auto) 0.00-0.20 Normal (applies to non-numeri c results) [facility] Immature Granulocytes# (Auto) 0.00-7.00 No rmal (applies to non-numeric results) [facility] ID Date Data Source [id number] 08/05/2020 02:58:00 AM EST [facility] Name Value Range Interpretation Code Description Data Asha rce(s) Supporting Document(s) Bilirubin,Direct 0.05-0.20 Normal (applies to non-numeric results) [facility] ID Date Data Source [id number] 08/05/2020 02:58:00 AM EST [facility] Name Value Range Interpretation Code Description Data Asha rce(s) Supporting Document(s) Phosphorus 2.5-4.9 Normal (applies to non-numeric resul ts) [facility] ID Date Data Source [id number] 08/05/2020 02:58:00 AM EST [facility] Name Value Range Interpretation Code Description Data Asha rce(s) Supporting Document(s) Sodium 139 mmol/L 136-145 Normal (applies to non-numeric resul ts) [facility] Potassium 3.5-5.1 Normal (applies to non-numeric resul ts) [facility] Chloride 102 mmol/L 98-107 Normal (applies to non-numeric resul ts) [facility] Carbon Dioxide CO2 21-32 Normal (applies to non-numer ic results) [facility] Anion Gap 5.0-16.0 Normal (applies to non-numeric resul ts) [facility] BUN 10 mg/dL 7-18 Normal (applies to non-numeric results) [facility] Creatinine,Serum 0.8-1.5 Normal (applies to non-numeric results) [facility] GFR >60 Normal (applies to non-numeric results) [facility] Glucose Level 103 mg/dL 60-99 Above high normal [facility] Reference range is only applicable when patient is fasting Note the following drug interference: Sulfasalazine Sulfapyridine Can see falsely depressed Can see falsely elevated result with up to 17% results with up to 11% decrease in measurement increase in measurement Recommend patients be collected for this test prior to administration of either drug. Calcium 8.5-10.1 Below low [facility] Bilirubin,Total 0.1-1.9 Normal (applies to non-numeric results) [facility] SGOT(AST) 18 U/L 15-37 Normal (applies to non-numeric resul ts) [facility] Note the following drug interference: Sulfasalazine Sulfapyridine Can see falsely depressed Can see falsely elevated result with up to 10% results with up to 10% decrease in measurement increase in measurement Recommend patients be collected for this test prior to administration of either drug. SGPT(ALT) 30 U/L 12-78 Normal (applies to non-numeric resul ts) [facility] Note the following drug interference: Sulfasalazine Sulfapyridine Can see falsely depressed Can see falsely elevated result with up to 29% results with up to 10% decrease in measurement increase in measurement Recommend patients be collected for this test prior to administration of either drug. Alkaline Phosphatase 84 U/L 38-126 Normal (applies to non-num meme results) [facility] can increase Alkaline Phosp le vels up to 2 times the normal adult value. Normal values for children and adolescents are 2 to 3 times the normal adult value. Total Protein 6.0-8.2 Normal (applies to non-numeric re sults) [facility] Albumin Level 3.4-5.0 Normal (applies to non-numeric re sults) [facility] ID Date Data Source [id number] 08/05/2020 02:58:00 AM EST [facility] Name Value Range Interpretation Code Description Data Asha rce(s) Supporting Document(s) Magnesium 1.8-2.4 Normal (applies to non-numeric resul ts) [facility] ID Date Data Source [id number] 08/05/2020 02:58:00 AM EST [facility] Name Value Range Interpretation Code Description Data Asha rce(s) Supporting Document(s) Thyroid Stimulate Hormone TSH 0.358-3.740 Below low normal [facility] ID Date Data Source [id number] 08/05/2020 02:10:00 AM EST [facility] [facility] Name Value Range Interpretation Code Description Data Asha rce(s) Supporting Document(s) Ethanol Less than 10.0 Normal (applies to non-numeric r esults) [facility] ID Date Data Source [id number] 01/08/2020 06:18:00 AM EDT [facility] Imaging Services Department Imaging Report [address] [place] [address] %(RAD)RES..[email or web address]("line") Name: DANAE ZULUAGA : 1990 Age/Sex: 29M Ordering Provider: Kiel Hurtado Jr, DO Med Rec #: [id number] Reg Status: DIS IN Room #: 129-1 Date of Service: 01/07/20 Report Number: [id number] cc:PCP None; Kiel Hurtado Jr, DO Send Report To: [id number] XRP/XR Chest 2 View [Pa & Lat] Reason for exam: Elevated white count, questionable infection Prior examination: None available. FINDINGS: There is no evidence of acute consolidation or congestive heart failure. The lungs are mildly hyperexpanded bilaterally. The heart is not enlarged. There is no hilar adenopathy. There are no pleural effusions. The upper spine is slightly angled to the left. IMPRESSION: No evidence of significant acute pulmonary disease. Time portable performed: Fluoroscopy time in seconds: Number of Exposures: Contrast Agent in ml: Method of Administration: REPORT SIGNATURE ON FILE Reported By: Nahun Frances MD <Electronically signed by Nahun Frances MD> 01/09/20 0630 Dictation Date/Time: 01/07/20 1058 Transcribed Date/Time: 04/20/20 0618 [employer] Manager: BONI Name Value Range Interpretation Code Description Data Asha rce(s) Supporting Document(s) ID Date Data Source [id number] 01/07/2020 07:39:00 AM EDT [facility] Name Value Range Interpretation Code Description Data Asha rce(s) Supporting Document(s) Phosphorus 2.5-4.9 Normal (applies to non-numeric resul ts) [facility] ID Date Data Source [id number] 01/07/2020 07:39:00 AM EDT [facility] Name Value Range Interpretation Code Description Data Asha rce(s) Supporting Document(s) Magnesium 1.8-2.4 Normal (applies to non-numeric resul ts) [facility] ID Date Data Source [id number] 01/07/2020 07:38:00 AM EDT [facility] Name Value Range Interpretation Code Description Data Asha rce(s) Supporting Document(s) White Blood Count 3.5-10.5 Above high normal [facility] Red Blood Count 4.30-5.70 Normal (applies to non-numeric results) [facility] Hemoglobin 13.5-17.5 Normal (applies to non-numeric resul ts) [facility] Hematocrit 38.8-50.0 Normal (applies to non-numeric resul ts) [facility] Mean Corpuscular Volume 81.2-95.1 Normal (applies to non- numeric results) [facility] Mean Corpuscular Hgb 25.6-32.2 Normal (applies to non-num meme results) [facility] Mean Corpuscular Hgb Conc 32.0-36.0 Normal (applies to no n-numeric results) [facility] Red Cell Distribution Width 11.8-15.6 Normal (appli es to non-numeric results) [facility] Platelet Count 224 x10 3/uL 150-450 Normal (applies to non-numeric results) [facility] Mean Platelet Volume 9.4-12.4 Normal (applies to non-num meme results) [facility] Neutrophils% (Auto) 31.0-71.0 Above high normal [facility] Lymphocytes% (Auto) 20.0-55.0 Normal (applies to non-nume oliver results) [facility] Monocytes% (Auto) 4.0-12.0 Normal (applies to non-numeri c results) [facility] Eosinophils% (Auto) 1.0-8.0 Below low normal [facility] Basophils% (Auto) 0.0-2.0 Normal (applies to non-numeri c results) [facility] Immature Granulocytes% (Auto) 0.0-2.0 Normal (natty lies to non-numeric results) [facility] Neutrophils# (Auto) 1.50-6.20 Above high normal [facility] Lymphocytes# (Auto) 1.20-4.00 Normal (applies to non-nume oliver results) [facility] Monocytes# (Auto) 0.00-0.90 Above high normal [facility] Eosinophils# (Auto) 0.00-0.50 Normal (applies to non-nume oliver results) [facility] Basophils# (Auto) 0.00-0.20 Normal (applies to non-numeri c results) [facility] Immature Granulocytes# (Auto) 0.00-7.00 No rmal (applies to non-numeric results) [facility] ID Date Data Source [id number] 01/09/2020 04:56:00 PM EDT [facility] Name Value Range Interpretation Code Description Data Asha rce(s) Supporting Document(s) Chlamydia,Urine result Negative Normal (applies to non-n umeric results) [facility] [address] [place] [address] Director: Angela Blanca MD . GC Urine result Negative Normal (applies to non-numeric results) [facility] Test Performed By: [facility] [address] [place] [address] Director: Angela Blanca MD . Methodology: Second generation nucleic acid amplification. ID Date Data Source [id number] 01/07/2020 12:14:00 AM EDT [facility] Name Value Range Interpretation Code Description Data Asah rce(s) Supporting Document(s) UDS Phencyclidine Screen Negative Normal (applies to non -numeric results) [facility] UDS Benzodiazepines Screen Negative Normal (applies to n on-numeric results) [facility] UDS Cocaine Screen Negative [facility] UDS Ampetamine Screen Negative Normal (applies to non-nu meric results) [facility] UDS Cannabinoids Screen Negative [facility] UDS Opiates Screen Negative [facility] UDS Barbiturates Screen Negative Normal (applies to non- numeric results) [facility] UDS Tricyclic Screen Negative Normal (applies to non-num meme results) [facility] Therapeutic Drug Ranges for Emergency Threshold Levels (ng/mL) PCP 25 Benzodiazepine 300 Cocaine 300 Amphetamines 1000 Cannabinoids 50 Opiates 300 Barbiturates 300 Tricyclic(TCA) 1000 Emergency toxicology analytes exceeding the therapeutic threshold levels are positive. Positive findings are unconfirmed. Positive drug levels may be confirmed at the request of the ordering provider. Results are to be used for medical treatment purposes only. ID Date Data Source [id number] 01/06/2020 11:43:00 PM [facility] Collected By: Nurse's Aide Initials: Time Collected: 2099 Name Value Range Interpretation Code Description Data Asha rce(s) Supporting Document(s) Color,Urine Colorl-Dk Y Normal (applies to non-numeric res ults) [facility] Clarity,Urine Clear Normal (applies to non-numeric re sults) [facility] Specific [place],Urine 1.005-1.030 Normal (applies to non- numeric results) [facility] pH,Urine 5.0-8.0 Normal (applies to non-numeric resul ts) [facility] Protein,Urine Negative Normal (applies to non-numeric re sults) [facility] Glucose,Urine Negative Normal (applies to non-numeric re sults) [facility] Ketones,Urine Negative Normal (applies to non-numeric re sults) [facility] Blood,Urine Negative Normal (applies to non-numeric resu lts) [facility] Bilirubin,Urine Negative Normal (applies to non-numeric results) [facility] Urobilinogen,Urine 0.2-1.0 Normal (applies to non-numer ic results) [facility] Leukocyte Esterase,Urine Negative Normal (applies to non -numeric results) [facility] Nitrite,Urine Negative Normal (applies to non-numeric re sults) [facility] ID Date Data Source [id number] 01/09/2020 08:47:00 PM EDT [facility] Name Value Range Interpretation Code Description Data Asha rce(s) Supporting Document(s) Hepatitis A Ab,IgG result Normal (applies to no n-numeric results) [facility] Result indicates immunity to hepatitis A infection from either vaccination or past exposure to hepatitis A. False-positive results may be observed in patients with CMV antibodies or heterophilic antibodies. REFERENCE VALUE Unvaccinated: Negative Vaccinated: Positive Test Performed by: [place] [address] [employer]: Boris Vang M.D. Ph.D.; CLIA# [id number] ID Date Data Source [id number] 01/09/2020 08:04:00 PM EDT [facility] Name Value Range Interpretation Code Description [facility] Document(s) Hepatitis A Ab,IgG result Normal (applies to no n-numeric results) [facility] Result indicates immunity to hepatitis A infection from either vaccination or past exposure to hepatitis A. False-positive results may be observed in patients with CMV antibodies or heterophilic antibodies. REFERENCE VALUE Unvaccinated: Negative Vaccinated: Positive Test Performed by: [place] [address] [employer]: Boris Vang M.D. Ph.D.; CLIA# [id number] ID Date Data Source [id number] 01/09/2020 04:51:00 PM EDT [facility] Value Range Interpretation Code Description Data Asha rce(s) Supporting Document(s) Chlamydia,Urine Negative Normal (applies to non-numeric results) [facility] Test Performed By: [place] [address] Director: Angela Blanca MD . GC Urine Negative Normal (applies to non-numeric resul ts) [facility] Test Performed By: [place] [address] Director: Angela Blanca MD . Methodology: Second generation nucleic acid amplification. ID Date Data Source [id number] 01/07/2020 03:06:00 PM EDT [facility] Value Range Interpretation Code Description Data Asha rce(s) Supporting Document(s) Hepatitis C Virus Ab result Nonreactive Norm al (applies to non-numeric results) [facility] Test Performed By: [place] [address] Director: Angela Blanca MD ID Date Data Source [id number] 01/07/2020 03:06:00 PM EDT [facility] Value Range Interpretation Code Description Data Asha rce(s) Supporting Document(s) CPK result 185 U/L 39-308 Normal (applies to non-numeric resul ts) [facility] Test Performed By: [place] [address] Director: Angela Blanca MD ID Date Data Source [id number] 01/07/2020 03:06:00 PM EDT [facility] Value Range Interpretation Code Description Data Asha rce(s) Supporting Document(s) Hep Bs Ag result T-Test Nonreactive Normal (applies to non -numeric results) [facility] Test Performed By: [place] [address] Director: Angela Blanca MD ID Date Data Source [id number] 01/07/2020 03:06:00 PM EDT [facility] Value Range Interpretation Code Description Data Asha rce(s) Supporting Document(s) Syphilis Serology result Nonreactive Normal (applies to non-numeric results) [facility] Test Performed By: [facility] [address] [place] [address] Director: Angela Blanca MD ID Date Data Source [id number] 01/07/2020 02:57:00 PM EDT [facility] Value Range Interpretation Code Description Data Asha rce(s) Supporting Document(s) Hep Bs Ag Result T-Test Nonreactive Normal (applies to non -numeric results) [facility] Test Performed By: [place] [address] Director: Angela Blanca MD ID Date Data Source [id number] 01/07/2020 02:57:00 PM EDT [facility] Value Range Interpretation Code Description Data Asha rce(s) Supporting Document(s) Hep C Ab-T Test Nonreactive Normal (applies to non-numeric results) [facility] Test Performed By: [place] [address] Director: Angela Blanca MD ID Date Data Source [id number] 01/07/2020 02:57:00 PM EDT [facility] Value Range Interpretation Code Description Data Asha rce(s) Supporting Document(s) Syphilis Serology Nonreactive Normal (applies to non-numer ic results) [facility] Test Performed By: [facility] [address] [place] [address] Director: Angela Blanca MD ID Date Data Source [id number] 01/07/2020 01:37:00 PM EDT [facility] Value Range Interpretation Code Description Data Asha rce(s) Supporting Document(s) CPK 185 U/L 39-308 Normal (applies to non-numeric resul ts) [facility] Test Performed By: [facility] [address] [place] [address] Director: Angela Blanca MD ID Date Data Source [id number] 01/06/2020 07:12:00 PM EDT [facility] Name Value Range Interpretation Code Description Data Asha rce(s) Supporting Document(s) Sodium 140 mmol/L 136-145 Normal (applies to non-numeric resul ts) [facility] Potassium 3.5-5.1 Normal (applies to non-numeric resul ts) [facility] Chloride 103 mmol/L 98-107 Normal (applies to non-numeric resul ts) [facility] Carbon Dioxide CO2 21-32 Normal (applies to non-numer ic results) [facility] Anion Gap 5.0-16.0 Normal (applies to non-numeric resul ts) [facility] BUN 14 mg/dL 7-18 Normal (applies to non-numeric results) [facility] Creatinine,Serum 0.8-1.5 Normal (applies to non-numeric results) [facility] GFR >60 Normal (applies to non-numeric results) [facility] Glucose Level 94 mg/dL 60-99 Normal (applies to non-numeric re sults) [facility] Reference range is only applicable when patient is fasting Note the following drug interference: Sulfasalazine Sulfapyridine Can see falsely depressed Can see falsely elevated result with up to 17% results with up to 11% decrease in measurement increase in measurement Recommend patients be collected for this test prior to administration of either drug. Calcium 8.5-10.1 Normal (applies to non-numeric resul ts) [facility] Bilirubin,Total 0.1-1.9 Normal (applies to non-numeric results) [facility] SGOT(AST) 18 U/L 15-37 Normal (applies to non-numeric resul ts) [facility] Note the following drug interference: Sulfasalazine Sulfapyridine Can see falsely depressed Can see falsely elevated result with up to 10% results with up to 10% decrease in measurement increase in measurement Recommend patients be collected for this test prior to administration of either drug. SGPT(ALT) 24 U/L 12-78 Normal (applies to non-numeric resul ts) [facility] Note the following drug interference: Sulfasalazine Sulfapyridine Can see falsely depressed Can see falsely elevated result with up to 29% results with up to 10% decrease in measurement increase in measurement Recommend patients be collected for this test prior to administration of either drug. Alkaline Phosphatase 84 U/L 38-126 Normal (applies to non-num meme results) [facility] can increase Alkaline Phosp le vels up to 2 times the normal adult value. Normal values for children and adolescents are 2 to 3 times the normal adult value. Total Protein 6.0-8.2 Normal (applies to non-numeric re sults) [facility] Albumin Level 3.4-5.0 Normal (applies to non-numeric re sults) [facility] ID Date Data Source [id number] 01/06/2020 07:12:00 PM EDT [facility] Name Value Range Interpretation Code Description Data Asha rce(s) Supporting Document(s) Bilirubin,Direct 0.05-0.20 Normal (applies to non-numeric results) [facility] ID Date Data Source [id number] 01/06/2020 07:12:00 PM EDT [facility] Name Value Range Interpretation Code Description Data Asha rce(s) Supporting Document(s) Phosphorus 2.5-4.9 Normal (applies to non-numeric resul ts) [facility] ID Date Data Source [id number] 01/06/2020 07:12:00 PM EDT [facility] Name Value Range Interpretation Code Description Data Asha rce(s) Supporting Document(s) Magnesium 1.8-2.4 Normal (applies to non-numeric resul ts) [facility] ID Date Data Source [id number] [facility] Code Description Data Asha rce(s) Supporting Document(s) Thyroid Stimulate Hormone TSH 0.358-3.74 Below low normal [facility] ID Date Data Source [id number] 01/06/2020 06:56:00 PM EDT [facility] Name Value Range Interpretation Code Description Data Asha rce(s) Supporting Document(s) Ethanol Less than 10.0 Normal (applies to non-numeric r esults) [facility] ID Date Data Source [id number] 01/06/2020 06:31:00 PM EDT [facility] Name Value Range Interpretation Code Description Data Asha rce(s) Supporting Document(s) White Blood Count 3.5-10.5 Above high normal [facility] Red Blood Count 4.30-5.70 Normal (applies to non-numeric results) [facility] Hemoglobin 13.5-17.5 Normal (applies to non-numeric resul ts) [facility] Hematocrit 38.8-50.0 Normal (applies to non-numeric resul ts) [facility] Mean Corpuscular Volume 81.2-95.1 Normal (applies to non- numeric results) [facility] Mean Corpuscular Hgb 25.6-32.2 Normal (applies to non-num meme results) [facility] Mean Corpuscular Hgb Conc 32.0-36.0 Normal (applies to no n-numeric results) [facility] Red Cell Distribution Width 11.8-15.6 Normal (appli es to non-numeric results) [facility] Platelet Count 226 x10 3/uL 150-450 Normal (applies to non-numeric results) [facility] Mean Platelet Volume 9.4-12.4 Normal (applies to non-num meme results) [facility] Neutrophils% (Auto) 31.0-71.0 Above high normal [facility] Lymphocytes% (Auto) 20.0-55.0 Normal (applies to non-nume oliver results) [facility] Monocytes% (Auto) 4.0-12.0 Normal (applies to non-numeri c results) [facility] Eosinophils% (Auto) 1.0-8.0 Below low normal [facility] Basophils% (Auto) 0.0-2.0 Normal (applies to non-numeri c results) [facility] Immature Granulocytes% (Auto) 0.0-2.0 Normal (natty lies to non-numeric results) [facility] Neutrophils# (Auto) 1.50-6.20 Above high normal [facility] Lymphocytes# (Auto) 1.20-4.00 Normal (applies to non-nume oliver results) [facility] Monocytes# (Auto) 0.00-0.90 Normal (applies to non-numeri c results) [facility] Eosinophils# (Auto) 0.00-0.50 Normal (applies to non-nume oliver results) [facility] Basophils# (Auto) 0.00-0.20 Normal (applies to non-numeri c results) [facility] Immature Granulocytes# (Auto) 0.00-7.00 No rmal (applies to non-numeric results) [facility] ID Date Data Source [id number] 09/15/2019 07:31:00 AM EST [facility] Name Value Range Interpretation Code Description Data Asha rce(s) Supporting Document(s) Thyroid Stimulate Hormone TSH 0.358-3.74 No rmal (applies to non-numeric results) [facility] ID Date Data Source [id number] 09/15/2019 07:31:00 AM EST [facility] Name Value Range Interpretation Code Description Data Asha rce(s) Supporting Document(s) Sodium 142 mmol/L 136-145 Normal (applies to non-numeric resul ts) [facility] Potassium 3.5-5.1 Normal (applies to non-numeric resul ts) [facility] Chloride 104 mmol/L 98-107 Normal (applies to non-numeric resul ts) [facility] Carbon Dioxide CO2 21-32 Normal (applies to non-numer ic results) [facility] Anion Gap 5.0-16.0 Normal (applies to non-numeric resul ts) [facility] BUN 19 mg/dL 7-18 Above high normal [facility] Creatinine,Serum 0.8-1.5 Normal (applies to non-numeric results) [facility] GFR >60 Normal (applies to non-numeric results) [facility] Glucose Level 96 mg/dL 60-99 Normal (applies to non-numeric re sults) [facility] Reference range is only applicable when patient is fasting Note the following drug interference: Sulfasalazine Sulfapyridine Can see falsely depressed Can see falsely elevated result with up to 17% results with up to 11% decrease in measurement increase in measurement Recommend patients be collected for this test prior to administration of either drug. Calcium 8.5-10.1 Normal (applies to non-numeric resul ts) [facility] Bilirubin,Total 0.1-1.9 Normal (applies to non-numeric results) [facility] SGOT(AST) 17 U/L 15-37 Normal (applies to non-numeric resul ts) [facility] Note the following drug interference: Sulfasalazine Sulfapyridine Can see falsely depressed Can see falsely elevated result with up to 10% results with up to 10% decrease in measurement increase in measurement Recommend patients be collected for this test prior to administration of either drug. SGPT(ALT) 35 U/L 12-78 Normal (applies to non-numeric resul ts) [facility] Note the following drug interference: Sulfasalazine Sulfapyridine Can see falsely depressed Can see falsely elevated result with up to 29% results with up to 10% decrease in measurement increase in measurement Recommend patients be collected for this test prior to administration of either drug. Alkaline Phosphatase 72 U/L 38-126 Normal (applies to non-num meme results) [facility] can increase Alkaline Phosp le vels up to 2 times the normal adult value. Normal values for children and adolescents are 2 to 3 times the normal adult value. Total Protein 6.0-8.2 Normal (applies to non-numeric re sults) [facility] Albumin Level 3.4-5.0 Normal (app[facility] ID Date Data Source [id number] 09/15/2019 06:53:00 AM EST [facility] Name Value Range Interpretation Code Description Data Asha rce(s) Supporting Document(s) White Blood Count 3.5-10.5 Above high normal [facility] Red Blood Count 4.30-5.70 Normal (applies to non-numeric results) [facility] Hemoglobin 13.5-17.5 Normal (applies to non-numeric resul ts) [facility] Hematocrit 38.8-50.0 Normal (applies to non-numeric resul ts) [facility] Mean Corpuscular Volume 81.2-95.1 Normal (applies to non- numeric results) [facility] Mean Corpuscular Hgb 25.6-32.2 Normal (applies to non-num meme results) [facility] Mean Corpuscular Hgb Conc 32.0-36.0 Normal (applies to no n-numeric results) [facility] Red Cell Distribution Width 11.8-15.6 Normal (appli es to non-numeric results) [facility] Platelet Count 239 x10 3/uL 150-450 Normal (applies to non-numeric results) [facility] Mean Platelet Volume 9.4-12.4 Normal (applies to non-num meme results) [facility] Neutrophils% (Auto) 31.0-71.0 Normal (applies to non-nume oliver results) [facility] Lymphocytes% (Auto) 20.0-55.0 Normal (applies to non-nume oliver results) [facility] Monocytes% (Auto) 4.0-12.0 Normal (applies to non-numeri c results) [facility] Eosinophils% (Auto) 1.0-8.0 Normal (applies to non-nume oliver results) [facility] Basophils% (Auto) 0.0-2.0 Normal (applies to non-numeri c results) [facility] Immature Granulocytes% (Auto) 0.0-2.0 Normal (natty lies to non-numeric results) [facility] Neutrophils# (Auto) 1.50-6.20 Normal (applies to non-nume oliver results) [facility] Lymphocytes# (Auto) 1.20-4.00 Above high normal [facility] Monocytes# (Auto) 0.00-0.90 Above high normal [facility] Eosinophils# (Auto) 0.00-0.50 Normal (applies to non-nume oliver results) [facility] [facility] Basophils# (Auto) 0.00-0.20 Normal (applies to non-numeri c results) [facility] Immature Granulocytes# (Auto) 0.00-7.00 No rmal (applies to non-numeric results) [facility] ID Date Data Source [id number] 09/15/2019 03:21:00 PM EST [facility] Name Value Range Interpretation Code Description Data Asha rce(s) Supporting Document(s) Hepatitis A Ab,IgG result Normal (applies to no n-numeric results) [facility] Result indicates no past exposure or imm unity to hepatitis A infection. REFERENCE VALUE Unvaccinated: Negative Vaccinated: Positive Test Performed by: [place] [address] [employer]: Boris Vang M.D. Ph.D.; CLIA# [id number] ID Date Data Source [id number] 09/15/2019 03:07:00 PM EST [facility] Name Value Range Interpretation Code Description Data Asha e(s) Supporting Document(s) Hepatitis A Ab,IgG result Normal (applies to no n-numeric results) [facility] Result indicates no past exposure or imm unity to hepatitis A infection. REFERENCE VALUE Unvaccinated: Negative Vaccinated: Positive Test Performed by: [place] [address] [employer]: Boris Vang M.D. Ph.D.; CLIA# [id number] ID Date Data Source [id number] 09/14/2019 03:14:00 PM EST [facility] Name Value Range Interpretation Code Description Data Asha rce(s) Supporting Document(s) CPK result 129 U/L 39-308 Normal (applies to non-numeric resul ts) [facility] [address] [place] [address] Director: Angela Blanca MD ID Date Data Source [id number] 09/14/2019 01:36:00 PM EST [facility] Name Value Range Interpretation Code Description Data Asha rce(s) Supporting Document(s) CPK 129 U/L 39-308 Normal (applies to non-numeric resul ts) [facility] Test [facility] By[facility] [address] [place] [address] Director: Angela Blanca MD ID Date Data Source [id number] 09/14/2019 01:02:00 AM EST [facility] Name Value Range Interpretation Code Description Data Asha rce(s) Supporting Document(s) Sodium 143 mmol/L 136-145 Normal (applies to non-numeric resul ts) [facility] Potassium 3.5-5.1 Normal (applies to non-numeric resul ts) [facility] Chloride 105 mmol/L 98-107 Normal (applies to non-numeric resul ts) [facility] Carbon Dioxide CO2 21-32 Normal (applies to non-numer ic results) [facility] Anion Gap 5.0-16.0 Normal (applies to non-numeric resul ts) [facility] BUN 13 mg/dL 7-18 Normal (applies to non-numeric results) [facility] Creatinine,Serum 0.8-1.5 Normal (applies to non-numeric results) [facility] GFR >60 Normal (applies to non-numeric results) [facility] Glucose Level 101 mg/dL 60-99 Above high normal [facility] Reference range is only applicable when patient is fasting Note the following drug interference: Sulfasalazine Sulfapyridine Can see falsely depressed Can see falsely elevated result with up to 17% results with up to 11% decrease in measurement increase in measurement Recommend patients be collected for this test prior to administration of either drug. Calcium 8.5-10.1 Normal (applies to non-numeric resul ts) [facility] Bilirubin,Total 0.1-1.9 Normal (applies to non-numeric results) [facility] SGOT(AST) 17 U/L 15-37 Normal (applies to non-numeric resul ts) [facility] Note the following drug interference: Sulfasalazine Sulfapyridine Can see falsely depressed Can see falsely elevated result with up to 10% results with up to 10% decrease in measurement increase in measurement Recommend patients be collected for this test prior to administration of either drug. SGPT(ALT) 33 U/L 12-78 Normal (applies to non-numeric resul ts) [facility] Note the following drug interference: Sulfasalazine Sulfapyridine Can see falsely depressed Can see falsely elevated result with up to 29% results with up to 10% decrease in measurement increase in measurement Recommend patients be collected for this test prior to administration of either drug. Alkaline Phosphatase 83 U/L 38-126 Normal (applies to non-num meme results) [facility] can increase Alkaline Phosp le vels up to 2 times the normal adult value. Normal values for children and adolescents are 2 to 3 times the normal adult value. Total Protein 6.0-8.2 Normal (applies to non-numeric re sults) [facility] Albumin Level 3.4-5.0 Normal (applies to non-numeric re sults) [facility] ID Date Data Source [id number] 09/14/2019 01:02:00 AM [facility] Name Value Range Interpretation Code Description Data Asha rce(s) Supporting Document(s) Bilirubin,Direct 0.05-0.20 Normal (applies to non-numeric results) [facility] ID Date Data Source [id number] 09/14/2019 01:02:00 AM [facility] Name Value Range Interpretation Code Description Data Asha rce(s) Supporting Document(s) Phosphorus 2.5-4.9 Normal (applies to non-numeric resul ts) [facility] ID Date Data Source [id number] 09/14/2019 01:02:00 AM [facility] Name Value Range Interpretation Code Description Data Asha rce(s) Supporting Document(s) Magnesium 1.8-2.4 Above high normal [facility]ital ID Date Data Source [id number] 09/14/2019 01:02:00 AM [facility] Name Value Range Interpretation Code Description Data Asha rce(s) Supporting Document(s) Thyroid Stimulate Hormone TSH 0.358-3.74 Below low normal [facility] ID Date Data Source [id number] 09/14/2019 12:37:00 AM [facility] Name Value Range Interpretation Code Description Data Asha rce(s) Supporting Document(s) Ethanol Less than 10.0 Normal (applies to non-numeric r esults) [facility] ID Date Data Source [id number] 09/13/2019 11:54:00 PM [facility] Name Value Range Interpretation Code Description Data Asha rce(s) Supporting Document(s) White Blood Count 3.5-10.5 Above high normal [facility] Red Blood Count 4.30-5.70 Normal (applies to non-numeric results) [facility] Hemoglobin 13.5-17.5 Normal (applies to non-numeric resul ts) [facility] Hematocrit 38.8-50.0 Normal (applies to non-numeric resul ts) [facility] Mean Corpuscular Volume 81.2-95.1 Normal (applies to non- numeric results) [facility] Mean Corpuscular Hgb 25.6-32.2 Normal (applies to non-num meme results) [facility] Mean Corpuscular Hgb Conc 32.0-36.0 Normal (applies to no n-numeric results) [facility] Red Cell Distribution Width 11.8-15.6 Normal (appli es to non-numeric results) [facility] Platelet Count 274 x10 3/uL 150-450 Normal (applies to non-numeric results) [facility] Mean Platelet Volume 9.4-12.4 Normal (applies to non-num meme results) [facility] Neutrophils% (Auto) 31.0-71.0 Normal (applies to non-nume oliver results) [facility] Lymphocytes% (Auto) 20.0-55.0 Normal (applies to non-nume oliver results) [facility] Monocytes% (Auto) 4.0-12.0 Normal (applies to non-numeri c results) [facility] Eosinophils% (Auto) 1.0-8.0 Below low normal [facility] Basophils% (Auto) 0.0-2.0 Normal (applies to non-numeri c results) [facility] Immature Granulocytes% (Auto) 0.0-2.0 Normal (natty lies to non-numeric results) [facility] Neutrophils# (Auto) 1.50-6.20 Above high normal [facility] Lymphocytes# (Auto) 1.20-4.00 Normal (applies to non-nume oliver results) [facility] Monocytes# (Auto) 0.00-0.90 Above high normal [facility] Eosinophils# (Auto) 0.00-0.50 Normal (applies to non-nume oliver results) [facility] Basophils# (Auto) 0.00-0.20 Normal (applies to non-numeri c results) [facility] Immature Granulocytes# (Auto) 0.00-7.00 No rmal (applies to non-numeric results) [facility] ID Date Data Source [id number] 09/14/2019 12:34:00 AM EST [facility] Name Value Range Interpretation Code Description Data Asha rce(s) Supporting Document(s) UDS Phencyclidine Screen Negative Normal (applies to non -numeric results) [facility] UDS Benzodiazepines Screen Negative Normal (applies to n on-numeric results) [facility] UDS Cocaine Screen Negative Normal (applies to non-numer ic results) [facility] UDS Ampetamine Screen Negative Normal (applies to non-nu meric results) [facility] UDS Cannabinoids Screen Negative [facility] UDS Opiates Screen Negative [facility] UDS Barbiturates Screen Negative Normal (applies to non- numeric results) [facility] UDS Tricyclic Screen Negative Normal (applies to non-num meme results) [facility] Therapeutic Drug Ranges for Emergency Threshold Levels (ng/mL) PCP 25 Benzodiazepine 300 Cocaine 300 Amphetamines 1000 Cannabinoids 50 Opiates 300 Barbiturates 300 Tricyclic(TCA) 1000 Emergency toxicology analytes exceeding the therapeutic threshold levels are positive. Positive findings are unconfirmed. Positive drug levels may be confirmed at the request of the ordering provider. Results are to be used for medical treatment purposes only. ID Date Data Source [id number] 09/14/2019 12:24:00 AM [facility] Collected By: Nurse's Aide Initials: DN Time Collected: 2099 Name Value Range Interpretation Code Description Data Asha rce(s) Supporting Document(s) Color,Urine Colorl-Dk Y Normal (applies to non-numeric res ults) [facility] Clarity,Urine Clear Normal (applies to non-numeric re sults) [facility] Specific [place],Urine 1.015-1.025 Normal (applies to non- numeric results) [facility] pH,Urine 5.0-7.0 Normal (applies to non-numeric resul ts) [facility] Protein,Urine Negative Normal (applies to non-numeric re sults) [facility] Glucose,Urine Negative Normal (applies to non-numeric re sults) [facility] Ketones,Urine Negative [facility],Urine Negative Normal (applies to non-numeric resu lts) [facility] Bilirubin,Urine Negative Normal (applies to non-numeric results) [facility] Urobilinogen,Urine Normal Normal (applies to non-numer ic results) [facility] Leukocyte Esterase,Urine Negative Normal (applies to non -numeric results) [facility] Nitrite,Urine Negative Normal (applies to non-numeric re sults) [facility] ID Date Data Source [id number] 09/10/2019 08:52:00 PM [facility] spital Procedure Performed By: [facility] [address] [place] [id number] Director: Aj Blanca MD Procedure Performed By: [facility] [address] [place] [address] Director: Aj Blanca MD Name Value Range Interpretation Code Description Data Asha rce(s) Supporting Document(s) Urine Culture [facility] ID Date Data Source [id number] 09/12/2019 06:44:00 PM EST [facility] Value Range Interpretation Code Description Data Asha rce(s) Supporting Document(s) CPK result 172 U/L 39-308 Normal (applies to non-numeric resul ts) [facility] Test Performed By: [facility] [address] [place] [address] Director: Angela Blanca MD ID Date Data Source [id number] 09/12/2019 06:44:00 PM EST [facility] Name Value Range Interpretation Code Description Data Asha rce(s) Supporting Document(s) Hep Bs Ag result T-Test Nonreactive Normal (applies to non -numeric results) [facility] Test Performed By: [facility] [address] [place] [address] Director: Angela Blanca MD ID Date Data Source [id number] 09/12/2019 06:44:00 PM [facility] Value Range Interpretation Code Description Data Asha rce(s) Supporting Document(s) Hepatitis C Virus Ab result Nonreactive Norm al (applies to non-numeric results) [facility] Test Performed By: [facility] [address] [place] [address] Director: Angela Blanca MD ID Date Data Source [id number] 09/12/2019 06:44:00 PM EST [facility] Value Range Interpretation Code Description Data Asha rce(s) Supporting Document(s) Syphilis Serology result Nonreactive Normal (applies to non-numeric results) [facility] Test Performed By: [facility] [address] [place] [address] Director: Angela Blanca MD ID Date Data Source [id number] 09/12/2019 06:44:00 PM EST [facility] Name Value Range Interpretation Code Description Data Asha rce(s) Supporting Document(s) Chlamydia,Urine result Negative Very abnormal (applies t o non-numeric units [facility] Test Performed By: [facility] [address] [place] [address] Director: Angela Blanca MD . THIS IS A STATE REPORTABLE COMMUNICABLE DISEASE. Results called 09/12/19 173, Andria Prakash MT @ lab read back information to LAB.BRIE PEREZ M read back information 09/12/19 1823 LAB.ERMELINDA GC Urine result Negative Normal (applies to non-numeric results) [facility] Test Performed By: [facility] [address] [place] [address] Director: Angela Blanca MD . Methodology: Second generation nucleic acid amplification. ID Date Data Source [id number] 09/12/2019 05:37:00 PM EST [facility] Name Value Range Interpretation Code Description Data Asha rce(s) Supporting Document(s) Chlamydia,Urine Negative [facility] Test Performed By: [facility] [address] [place] [address] Director: Angela Blanca MD . THIS IS A STATE REPORTABLE COMMUNICABLE DISEASE. Results called 09/12/191733, Andria Prakash MT @ lab read back information to LAB.BRIE Test Performed By: [facility] [address] [place] [address] Director: Angela Blanca MD . Methodology: Second generation nucleic acid amplification. ID Date Data Source [id number] 09/10/2019 09:24:00 AM EST [facility] Procedure Performed By: [facility] [address] [place] [address] Director: Aj Blanca MD Name Value Range Interpretation Code Description Data Asha rce(s) Supporting Document(s) Urine Culture [facility] ID Date Data Source [id number] 09/08/2019 07:00:00 PM EST [facility] Name Value Range Interpretation Code Description Data Asha rce(s) Supporting Document(s) Hep C Ab-T Test Nonreactive Normal (applies to non-numeric results) [facility] Test Performed By: [facility] [address] [place] [address] Director: Angela Blanca MD ID Date Data Source [id number] 09/08/2019 07:00:00 PM EST [facility] Name Value Range Interpretation Code Description Data Asha rce(s) Supporting Document(s) Hep Bs Ag Result T-Test Nonreactive Normal (applies to non -numeric results) [facility] Test Performed By: [facility] [address] [place] [address] Director: Angela Blanca MD ID Date Data Source [id number] 09/08/2019 07:00:00 PM EST [facility] Name Value Range Interpretation Code Description Data Asha rce(s) Supporting Document(s) Syphilis Serology Nonreactive Normal (applies to non-numer ic results) [facility] Test Performed By: [facility] [address] [place] [address] Director: Angela Blanca MD ID Date Data Source [id number] 09/08/2019 06:02:00 PM EST [facility] Value Range Interpretation Code Description Data Asha rce(s) Supporting Document(s) CPK 172 U/L 39-308 Normal (applies to non-numeric resul ts) [facility] Test Performed By: [facility] [address] [place] [address] Director: Angela Blanca MD ID Date Data Source [id number] 09/08/2019 01:50:00 PM EST [facility] Name Value Range Interpretation Code Description Data Asha rce(s) Supporting Document(s) Sodium 140 mmol/L 136-145 Normal (applies to non-numeric resul ts) [facility] Potassium 3.5-5.1 Normal (applies to non-numeric resul ts) [facility] Chloride 101 mmol/L 98-107 Normal (applies to non-numeric resul ts) [facility] Carbon Dioxide CO2 21-32 Normal (applies to non-numer ic results) [facility] Anion Gap 5.0-16.0 Normal (applies to non-numeric resul ts) [facility] BUN 13 mg/dL 7-18 Normal (applies to non-numeric results) [facility] Creatinine,Serum 0.8-1.5 Normal (applies to non-numeric results) [facility] GFR >60 Normal (applies to non-numeric results) [facility] Glucose Level 79 mg/dL 60-99 Normal (applies to non-numeric re sults) [facility] Reference range is only applicable when patient is fasting Note the following drug interference: Sulfasalazine Sulfapyridine Can see falsely depressed Can see falsely elevated result with up to 17% results with up to 11% decrease in measurement increase in measurement Recommend patients be collected for this test prior to administration of either drug. Calcium 8.5-10.1 Above high normal [facility] Bilirubin,Total 0.1-1.9 Normal (applies to non-numeric results) [facility] SGOT(AST) 17 U/L 15-37 Normal (applies to non-numeric resul ts) [facility] Note the following drug interference: Sulfasalazine Sulfapyridine Can see falsely depressed Can see falsely elevated result with up to 10% results with up to 10% decrease in measurement increase in measurement Recommend patients be collected for this test prior to administration of either drug. SGPT(ALT) 28 U/L 12-78 Normal (applies to non-numeric resul ts) [facility] Note the following drug interference: Sulfasalazine Sulfapyridine Can see falsely depressed Can see falsely elevated result with up to 29% results with up to 10% decrease in measurement increase in measurement Recommend patients be collected for this test prior to administration of either drug. Alkaline Phosphatase 89 U/L 38-126 Normal (applies to non-num meme results) [facility] can increase Alkaline Phosp le vels up to 2 times the normal adult value. Normal values for children and adolescents are 2 to 3 times the normal adult value. Total Protein 6.0-8.2 Normal (applies to non-numeric re sults) [facility] Albumin Level 3.4-5.0 Normal (applies to non-numeric re sults) [facility] ID Date Data Source [id number] 09/08/2019 01:50:00 PM [facility] Name Value Range Interpretation Code Description Data Asha rce(s) Supporting Document(s) Bilirubin,Direct 0.05-0.20 Above high normal [facility] ID Date Data Source [id number] 09/08/2019 01:50:00 PM [facility] Name Value Range Interpretation Code Description Data Asha rce(s) Supporting Document(s) Phosphorus 2.5-4.9 Below low normal [facility] ID Date Data Source [id number] 09/08/2019 01:50:00 PM [facility] Name Value Range Interpretation Code Description Data Asha rce(s) Supporting Document(s) Magnesium 1.8-2.4 Normal (applies to non-numeric resul ts) [facility] ID Date Data Source [id number] 09/08/2019 01:50:00 PM [facility] Name Value Range Interpretation Code Description Data Asha rce(s) Supporting Document(s) Thyroid Stimulate Hormone TSH 0.358-3.74 Below low normal [facility] ID Date Data Source [id number] 09/08/2019 01:40:00 PM [facility] Name Value Range Interpretation Code Description Data Asha rce(s) Supporting Document(s) Ethanol Less than 10.0 Normal (applies to non-numeric r esults) [facility] ID Date Data Source [id number] 09/08/2019 01:11:00 PM [facility] Name Value Range Interpretation Code Description Data Asha rce(s) Supporting Document(s) White Blood Count 3.5-10.5 Above high normal [facility] Red Blood Count 4.30-5.70 Above high normal [facility] Hemoglobin 13.5-17.5 Above high normal [facility] Hematocrit 38.8-50.0 Above high normal [facility] Mean Corpuscular Volume 81.2-95.1 Normal (applies to non- numeric results) [facility] Mean Corpuscular Hgb 25.6-32.2 Normal (applies to non-num meme results) [facility] Mean Corpuscular Hgb Conc 32.0-36.0 Normal (applies to no n-numeric results) [facility] Red Cell Distribution Width 11.8-15.6 Normal (appli es to non-numeric results) [facility] Platelet Count 249 x10 3/uL 150-450 Normal (applies to non-numeric results) [facility] Mean Platelet Volume 9.4-12.4 Normal (applies to non-num meme results) [facility] Neutrophils% (Auto) 31.0-71.0 Above high normal [facility] Lymphocytes% (Auto) 20.0-55.0 Below low normal [facility] Monocytes% (Auto) 4.0-12.0 Normal (applies to non-numeri c results) [facility] Eosinophils% (Auto) 1.0-8.0 Below low normal [facility] Basophils% (Auto) 0.0-2.0 Normal (applies to non-numeri c results) [facility] Immature Granulocytes% (Auto) 0.0-2.0 Normal (natty lies to non-numeric results) [facility] Neutrophils# (Auto) 1.50-6.20 Above high normal [facility] Lymphocytes# (Auto) 1.20-4.00 Normal (applies to non-nume oliver results) [facility] Monocytes# (Auto) 0.00-0.90 Normal (applies to non-numeri c results) [facility] Eosinophils# (Auto) 0.00-0.50 Normal (applies to non-nume oliver results) [facility] Basophils# (Auto) 0.00-0.20 Normal (applies to non-numeri c results) [facility] Immature Granulocytes# (Auto) 0.00-7.00 No rmal (applies to non-numeric results) [facility] ID Date Data Source [id number] 09/08/2019 01:16:00 PM [facility] Name Value Range Interpretation Code Description Data Asha rce(s) Supporting Document(s) UDS Phencyclidine Screen Negative Normal (applies to non -numeric results) [facility] UDS Benzodiazepines Screen Negative Normal (applies to n on-numeric results) [facility] UDS Cocaine Screen Negative [facility] UDS Ampetamine Screen Negative Normal (applies to non-nu meric results) [facility] UDS Cannabinoids Screen Negative Normal (applies to non- numeric results) [facility] UDS Opiates Screen Negative [facility] UDS Barbiturates Screen Negative Normal (applies to non- numeric results) [facility] UDS Tricyclic Screen Negative Normal (applies to non-num meme results) [facility] Therapeutic Drug Ranges for Emergency Threshold Levels (ng/mL) PCP 25 Benzodiazepine 300 Cocaine 300 Amphetamines 1000 Cannabinoids 50 Opiates 300 Barbiturates 300 Tricyclic(TCA) 1000 Emergency toxicology analytes exceeding the therapeutic threshold levels are positive. Positive findings are unconfirmed. Positive drug levels may be confirmed at the request of the ordering provider. Results are to be used for medical treatment purposes only. ID Date Data Source [id number] 09/08/2019 01:14:00 PM [facility] Collected By: Nurse's Aide Initials: at Collected By: Nurse's Aide Initials: at Name Value Range Interpretation Code Description Data Asha rce(s) Supporting Document(s) Color,Urine Colorl-Dk Y Normal (applies to non-numeric res ults) [facility] Clarity,Urine Clear Normal (applies to non-numeric re sults) [facility] Specific [place],Urine 1.015-1.025 Normal (applies to non- numeric results) [facility] pH,Urine 5.0-7.0 Normal (applies to non-numeric resul ts) [facility] Protein,Urine Negative [facility] Glucose,Urine Negative Normal (applies to non-numeric re sults) [facility] Ketones,Urine Negative [facility] Blood,Urine Negative Normal (applies to non-numeric resu lts) [facility] Bilirubin,Urine Negative Normal (applies to non-numeric results) [facility] Urobilinogen,Urine Normal Normal (applies to non-numer ic results) [facility] Leukocyte Esterase,Urine Negative [facility] Nitrite,Urine Negative Normal (applies to non-numeric re sults) [facility] ID Date Data Source [id number] 09/08/2019 01:14:00 PM [facility] Collected By: Nurse's Aide Initials: at Collected By: Nurse's Aide Initials: at Name Value Range Interpretation Code Description Data Asha rce(s) Supporting Document(s) RBC,Urine None Seen Normal (applies to non-numeric resul ts) [facility] WBC,Urine None Seen [facility] Casts,Urine None Seen Normal (applies to non-numeric resu lts) [facility] Squamous Cells,Urine None Seen [facility] Amorphous Sediment,Urine None Seen [facility] Bacteria,Urine None Seen Normal (applies to non-numeric r esults) [facility] Mucus,Urine None [facility] Vital Signs ID Date Data Source [id number] 08/06/2020 09:34:00 PM [facility] spital Name Value Range Interpretation Code Description Data Source(s) Weight (Calculated Kilograms) 65.77 65.77 [facility] Weight 2320 2320 [facility] pital Temperature Source 7 7 [facility] Temperature 97.9 97.9 [facility] spital Respiratory Effort 1 1 [facility] Respiratory Rate 16 16 [facility] Pulse Assessment Method 4 4 [facility] Pulse Rate 63 63 [facility] Height (Calculated Centimeters) 165.1 165. 1 [facility] Height 65 65 [facility] Blood Pressure 125/77 125/77 [facility] Body Mass Index (BMI) 24.1 24.1 [facility] Weight (Calculated Kilograms) 65.77 65.77 [facility] Weight 2320 2320 [facility] pital Temperature Source 7 7 [facility] Temperature 97.9 97.9 [facility] spital Respiratory Effort 1 1 [facility] Respiratory Rate 16 16 [facility] Pulse Assessment Method 4 4 [facility] Pulse Rate 63 63 [facility] pital Height (Calculated Centimeters) 165.1 165. 1 [facility] Height 65 65 [facility] Blood Pressure 125/77 125/77 [facility] Body Mass Index (BMI) 24.1 24.1 [facility] Weight (Calculated Kilograms) 65.77 65.77 [facility] Weight 2320 2320 [facility] pital Temperature Source 7 7 [facility] Temperature 97.9 97.9 [facility] spital Respiratory Effort 1 1 [facility] Respiratory Rate 16 16 [facility] Pulse Assessment Method 4 4 [facility] Pulse Rate 63 63 [facility] pital Height (Calculated Centimeters) 165.1 165. 1 [facility] Height 65 65 [facility] Blood Pressure 125/77 125/77 [facility] Body Mass Index (BMI) 24.1 24.1 [facility] Weight (Calculated Kilograms) 65.77 65.77 [facility] Weight 2320 2320 [facility] pital Temperature Source 7 7 [facility] Temperature 97.9 97.9 [facility] spital Respiratory Effort 1 1 [facility] Respiratory Rate 16 16 [facility] Pulse Assessment Method 4 4 [facility] Pulse Rate 63 63 [facility] pital Height (Calculated Centimeters) 165.1 165. 1 [facility] Height 65 65 [facility] Blood Pressure 125/77 125/77 [facility] Body Mass Index (BMI) 24.1 24.1 [facility] Weight (Calculated Kilograms) 65.77 65.77 [facility] Weight 2320 2320 [facility] pital Temperature Source 7 7 [facility] Temperature 97.6 97.6 [facility] spital Respiratory Effort 1 1 [facility] Respiratory Rate 18 18 [facility] Pulse Assessment Method 4 4 [facility] Pulse Rate 86 86 [facility] pital Height (Calculated Centimeters) 165.1 165. 1 [facility] Height 65 65 [facility] pital Blood Pressure 135/76 135/76 [facility] Body Mass Index (BMI) 24.1 24.1 [facility] Weight (Calculated Kilograms) 65.77 65.77 [facility] Weight 2320 2320 [facility] pital Temperature Source 7 7 [facility] Temperature 98.8 98.8 [facility] spital Respiratory Effort 1 1 [facility] Respiratory Rate 18 18 [facility] Pulse Assessment Method 4 4 [facility] Pulse Rate 62 62 [facility] pital Height (Calculated Centimeters) 165.1 165. 1 [facility] Height 65 65 [facility] pital Blood Pressure 117/59 117/59 [facility] Body Mass Index (BMI) 24.1 24.1 [facility] Weight (Calculated Kilograms) 65.77 65.77 [facility] Weight 2320 2320 [facility] pital Temperature Source 7 7 [facility] Temperature 99.0 99.0 [facility] spital Respiratory Effort 1 1 [facility] Respiratory Rate 17 17 [facility] Pulse Assessment Method 4 4 [facility] Pulse Rate 84 84 [facility] pital Height (Calculated Centimeters) 165.1 165. 1 [facility] Height 65 65 [facility] Blood Pressure 133/63 133/63 [facility] Body Mass Index (BMI) 24.1 24.1 [facility] Weight (Calculated Kilograms) 76.20 76.20 [facility] Height (Calculated Centimeters) 167.64 167. 64 [facility] Body Mass Index (BMI) 27.1 27.1 [facility] ID Date Data Source [id number] 01/12/2020 08:25:00 AM EDT [facility] spital Name Value Range Interpretation Code Description Data Source(s) Weight (Calculated Kilograms) 74.93 74.93 [facility] Height (Calculated Centimeters) 167.64 167. 64 [facility] Body Mass Index (BMI) 26.6 26.6 [facility] Weight (Calculated Kilograms) 74.93 74.93 [facility] Height (Calculated Centimeters) 167.64 167. 64 [facility] Body Mass Index (BMI) 26.6 26.6 [facility] ID Date Data Source [id number] 01/12/2020 04:33:00 AM EDT [facility] spital Name Value Range Interpretation Code Description Data Source(s) Weight Measurement Method 1 1 [facility] Weight (Calculated Kilograms) 76.20 76.20 [facility] Weight 2688 2688 [facility] pital Temperature Source 7 7 [facility] Temperature 98.3 98.3 [facility] spital Respiratory Effort 1 1 [facility] Respiratory Rate 18 18 [facility] Pulse Assessment Method 4 4 [facility] Pulse Rate 44 44 [facility] pital Height (Calculated Centimeters) 167.64 167. 64 [facility] Height 66 66 [facility] pital Blood Pressure 125/74 125/74 [facility] Body Mass Index (BMI) 27.1 27.1 [facility] Weight Measurement Method 1 1 [facility] Weight (Calculated Kilograms) 76.20 76.20 [facility] Weight 2688 2688 [facility] pital Temperature Source 7 7 [facility] Temperature 98.3 98.3 [facility] spital Respiratory Effort 1 1 [facility] Respiratory Rate 18 18 [facility] Pulse Assessment Method 4 4 [facility] Pulse Rate 44 44 [facility] pital Height (Calculated Centimeters) 167.64 167. 64 [facility] Height 66 66 [facility] pital Blood Pressure 125/74 125/74 [facility] Body Mass Index (BMI) 27.1 27.1 [facility] Weight Measurement Method 1 1 [facility] Weight (Calculated Kilograms) 76.20 76.20 [facility] Weight 2688 2688 [facility] pital Temperature Source 7 7 [facility] Temperature 98.3 98.3 [facility] spital Respiratory Effort 1 1 [facility] Respiratory Rate 18 18 [facility] Pulse Assessment Method 4 4 [facility] Pulse Rate 44 44 [facility] pital Height (Calculated Centimeters) 167.64 167. 64 [facility] Height 66 66 [facility] Blood Pressure 125/74 125/74 [facility] Body Mass Index (BMI) 27.1 27.1 [facility] Weight Measurement Method 1 1 [facility] Weight (Calculated Kilograms) 76.20 76.20 [facility] Weight 2688 2688 [facility] pital Temperature Source 7 7 [facility] Temperature 99.6 99.6 [facility] spital Respiratory Effort 1 1 [facility] Respiratory Rate 16 16 [facility] Pulse Assessment Method 1 1 [facility] Pulse Rate 59 59 [facility] pital Height (Calculated Centimeters) 167.64 167. 64 [facility] Height 66 66 [facility] Blood Pressure 130/68 130/68 [facility] Body Mass Index (BMI) 27.1 27.1 [facility] Weight Measurement Method 1 1 [facility] Weight (Calculated Kilograms) 76.20 76.20 [facility] Weight 2688 2688 [facility] pital Temperature Source 7 7 [facility] Temperature 98.1 98.1 [facility] spital Respiratory Effort 1 1 [facility] Respiratory Rate 18 18 [facility] Pulse Assessment Method 1 1 [facility] Pulse Rate 71 71 [facility] pital Height (Calculated Centimeters) 167.64 167. 64 [facility] Height 66 66 [facility] Blood Pressure 123/70 123/70 [facility] Body Mass Index (BMI) 27.1 27.1 [facility] Weight (Calculated Kilograms) 74.93 74.93 [facility] Height (Calculated Centimeters) 167.64 167. 64 [facility] Body Mass Index (BMI) 26.6 26.6 [facility] Weight (Calculated Kilograms) 74.93 74.93 [facility] Height (Calculated Centimeters) 167.64 167. 64 [facility] Body Mass Index (BMI) 26.6 266 [facility] ID Date Data Source [id number] 12/21/2019 11:34:00 AM EDT [facility] spital Name Value Range Interpretation Code Description Data Source(s) Weight (Calculated Kilograms) 74.93 74.93 [facility] Height (Calculated Centimeters) 167.64 167. 64 [facility] Body Mass Index (BMI) 26.6 266 [facility] Weight (Calculated Kilograms) 74.93 74.93 [facility] Height (Calculated Centimeters) 167.64 167. 64 [facility] Body Mass Index (BMI) 26.6 266 [facility] ID Date Data Source [id number] 12/14/2019 11:32:00 AM EDT [facility] spital Name Value Range Interpretation Code Description Data Source(s) Weight (Calculated Kilograms) 74.93 74.93 [facility] Height (Calculated Centimeters) 167.64 167. 64 [facility] Body Mass Index (BMI) 26.6 266 [facility] Weight (Calculated Kilograms) 74.93 74.93 [facility] Height (Calculated Centimeters) 167.64 167. 64 [facility] Body Mass Index (BMI) 26.6 266 [facility] ID Date Data Source [id number] 12/06/2019 02:33:00 PM EDT [facility] spital Name Value Range Interpretation Code Description Data Source(s) Weight (Calculated Kilograms) 74.93 74.93 [facility] Height (Calculated Centimeters) 167.64 167. 64 [facility] Body Mass Index (BMI) 26.6 266 [facility] Weight (Calculated Kilograms) 74.93 74.93 [facility] Height (Calculated Centimeters) 167.64 167. 64 [facility] Body Mass Index (BMI) 26.[address] ID Date Data Source [id number] 11/23/2019 12:03:00 PM [facility] spital Name Value Range Interpretation Code Description Data Source(s) Weight (Calculated Kilograms) 74.93 74.93 [facility] Height (Calculated Centimeters) 167.64 167. 64 [facility] Body Mass Index (BMI) 26.[address] [place] [address] Weight (Calculated Kilograms) 74.93 74.93 [facility] Height (Calculated Centimeters) 167.64 167. 64 [facility] Body Mass Index (BMI) 26.[address] [place] [address] ID Date Data Source [id number] 11/15/2019 10:52:00 AM EST [facility] spital Name Value Range Interpretation Code Description Data Source(s) Weight (Calculated Kilograms) 74.93 74.93 [facility] Height (Calculated Centimeters) 167.64 167. 64 [facility] Body Mass Index (BMI) 26.[address] Weight (Calculated Kilograms) 74.93 74.93 [facility] Height (Calculated Centimeters) 167.64 167. 64 [facility] Body Mass Index (BMI) 26.[address] ID Date Data Source [id number] 10/19/2019 08:00:00 AM EST [facility] spital Name Value Range Interpretation Code Description Data Source(s) Weight (Calculated Kilograms) 74.93 74.93 [facility] Height (Calculated Centimeters) 167.64 167. 64 [facility] Body Mass Index (BMI) 26.[address] [place] [address] Weight (Calculated Kilograms) 74.93 74.93 [facility] Height (Calculated Centimeters) 167.64 167. 64 [facility] Body Mass Index (BMI) 26.6 26.6 [facility] ID Date Data Source [id number] 10/13/2019 01:20:00 PM [facility] Value Range Interpretation Code Description Data Source(s) Weight (Calculated Kilograms) 74.93 74.93 [facility] Height (Calculated Centimeters) 167.64 167. 64 [facility] Body Mass Index (BMI) 26.[address] Weight (Calculated Kilograms) 74.93 74.93 [facility] Height (Calculated Centimeters) 167.64 167. 64 [facility] Body Mass Index (BMI) 26.[address] ID Date Data Source [id number] 10/05/2019 02:01:00 PM EST [facility] spital Name Value Range Interpretation Code Description Data Source(s) Weight (Calculated Kilograms) 74.93 74.93 [facility] Height (Calculated Centimeters) 167.64 167. 64 [facility] Body Mass Index (BMI) 26.[address] Weight (Calculated Kilograms) 74.93 74.93 [facility] Height (Calculated Centimeters) 167.64 167. 64 [facility] Body Mass Index (BMI) 26.[address] ID Date Data Source [id number] 10/05/2019 01:52:00 PM [facility] Value Range Interpretation Code Description Data Source(s) Weight (Calculated Kilograms) 74.93 74.93 [facility] Height (Calculated Centimeters) 167.64 167. 64 [facility] Body Mass Index (BMI) 26.[address] Weight (Calculated Kilograms) 74.93 74.93 [facility] Height (Calculated Centimeters) 167.64 167. 64 [facility] Body Mass Index (BMI) 26.6 266 [facility] ID Date Data Source [id number] 09/21/2019 01:52:00 PM EST [facility] spital Name Value Range Interpretation Code Description Data Source(s) Weight (Calculated Kilograms) 74.93 74.93 [facility] Height (Calculated Centimeters) 167.64 167. 64 [facility] Body Mass Index (BMI) 26.[address] Weight (Calculated Kilograms) 74.93 74.93 [facility] Height (Calculated Centimeters) 167.64 167. 64 [facility] Body Mass Index (BMI) 26.[address] ID Date Data Source [id number] 10/12/2019 12:12:00 AM EST [facility] spital Name Value Range Interpretation Code Description Data Source(s) Weight Measurement Method 1 1 [facility] Weight (Calculated Kilograms) 74.93 74.93 [facility] Weight 2643.2 2643.2 [facility] pital Temperature Source 7 7 [facility] Temperature 98.7 98.7 [facility] spital Respiratory Effort 1 1 [facility] Respiratory Rate 18 18 [facility] Pulse Assessment Method 4 4 [facility] Pulse Rate 59 59 [facility] pital Height (Calculated Centimeters) 167.64 167. 64 [facility] Height 66 66 [facility] pital Blood Pressure 132/83 132/83 [facility] Body Mass Index (BMI) 26.[address] Weight Measurement Method 1 1 [facility] Weight (Calculated Kilograms) 74.93 74.93 [facility] Weight 2643.2 2643.2 [facility] pital Temperature Source 7 7 [facility] Temperature 98.7 98.7 [facility] spital Respiratory Effort 1 1 [facility] Respiratory Rate 18 18 [facility] Pulse Assessment Method 4 4 [facility] Pulse Rate 59 59 [facility] pital Height (Calculated Centimeters) 167.64 167. 64 [facility] Height 66 66 [facility] pital Blood Pressure 132/83 132/83 [facility] Body Mass Index (BMI) 26.6 26.6 [facility] Weight Measurement Method 1 1 [facility] Weight (Calculated Kilograms) 74.93 74.93 [facility] Weight 2643.2 2643.2 [facility] pital Temperature Source 7 7 [facility] Temperature 98.7 98.7 [facility] Respiratory Effort 1 1 [facility] Respiratory Rate 18 18 [facility] Pulse Assessment Method 4 4 [facility] Pulse Rate 59 59 [facility] pital Height (Calculated Centimeters) 167.64 167. 64 [facility] Height 66 66 [facility] pital Blood Pressure 132/83 132/83 [facility] Body Mass Index (BMI) 26.6 266 [facility] Weight Measurement Method 1 1 [facility] Weight (Calculated Kilograms) 74.93 74.93 [facility] Weight 2643.2 2643.2 [facility] pital Temperature Source 7 7 [facility] Temperature 98.2 98.2 [facility] Respiratory Effort 1 1 [facility] Respiratory Rate 22 22 [facility] Pulse Assessment Method 4 4 [facility] Pulse Rate 62 62 [facility] pital Height (Calculated Centimeters) 167.64 167. 64 [facility] Height 66 66 [facility] pital Blood Pressure 140/95 140/95 [facility] Body Mass Index (BMI) 26.6 26.6 [facility] Weight Measurement Method 1 1 [facility] Weight (Calculated Kilograms) 74.93 74.93 [facility] Weight 2643.2 2643.2 [facility] pital Temperature Source 7 7 [facility] Temperature 98.3 98.3 [facility] Respiratory Effort 1 1 [facility] Respiratory Rate 22 22 [facility] Pulse Assessment Method 4 4 [facility] Pulse Rate 57 57 [facility] pital Height (Calculated Centimeters) 167.64 167. 64 [facility] Height 66 66 [facility] pital Blood Pressure 140/95 140/95 [facility] Body Mass Index (BMI) 26.6 26.6 [facility] Weight (Calculated Kilograms) 74.12 74.12 [facility] Height (Calculated Centimeters) 167.64 167. 64 [facility] Body Mass Index (BMI) 26.4 26.4 [facility] ID Date Data Source [id number] 09/13/2019 07:18:00 PM EST [facility] spital Name Value Range Interpretation Code Description Data Source(s) Weight (Calculated Kilograms) 74.12 74.12 [facility] Height (Calculated Centimeters) 167.64 167. 64 [facility] Body Mass Index (BMI) 26.4 26.4 [facility] ID Date Data Source [id number] 09/12/2019 06:44:00 PM EST [facility] spital Name Value Range Interpretation Code Description Data Source(s) Weight (Calculated Kilograms) 74.12 74.12 [facility] Weight 2614.4 2614.4 [facility] pital Temperature Source 7 7 [facility] Temperature 98.9 98.9 [facility] spital Respiratory Effort 1 1 [facility] Respiratory Rate 16 16 [facility] Pulse Assessment Method 4 4 [facility] Pulse Rate 95 95 [facility] Height (Calculated Centimeters) 167.64 167. 64 [facility] Height 66 66 [facility] pital Blood Pressure 113/71 113/71 [facility] Body Mass Index (BMI) 26.4 26.4 [facility] Weight (Calculated Kilograms) 74.12 74.12 [facility] Weight 2614.4 2614.4 [facility] pital Temperature Source 7 7 [facility] Temperature 98.9 98.9 [facility] spital Respiratory Effort 1 1 [facility] Respiratory Rate 16 16 [facility] Pulse Assessment Method 4 4 [facility] Pulse Rate 95 95 [facility] pital Height (Calculated Centimeters) 167.64 167. 64 [facility] Height 66 66 [facility] pital Blood Pressure 113/71 113/71 [facility] Body Mass Index (BMI) 26.4 26.4 [facility]
[2020-10-31] MEDS ORDERED: NS 1,000 ML IV ONE (02:30)
[2020-10-31 02:51] VITALS: BP 128/79
[2020-10-31 02:51] LABS: BASO % 0.3 % (0.0-1.0); EOS % 0.2 % (0.0-3.0); HEMATOCRIT 38.7 % (42.0-52.0); HEMOGLOBIN 12.7 g/dl (13.5-17.5); LYMPH # 2.1 10^3/uL (1.5-5.0); LYMPH % 18.1 % (24.0-44.0); MEAN CORPUSCULAR HGB CONC 32.8 g/dl (32.0-36.5); MEAN CORPUSCULAR VOLUME 85.4 fl (80.0-96.0); MONO % 8.5 % (0.0-5.0); NEUTROPHILS # 8.6 10^3/uL (1.5-8.5); NEUTROPHILS % 72.6 % (36.0-66.0); PLATELET COUNT, AUTOMATED 238 10^3/uL (150-450); RED BLOOD COUNT 4.53 10^6/uL (4.30-6.10)
[2020-10-31 03:30] LABS: ACETAMINOPHEN LEVEL < 2.0 UG/ML (10.0-30.0); ALBUMIN 3.7 GM/DL (3.2-5.2); ALT/SGPT 743 U/L (12-78); BILIRUBIN,DIRECT 0.6 MG/DL (0.0-0.2); BILIRUBIN,TOTAL 1.2 MG/DL (0.2-1.0); BLOOD UREA NITROGEN 17 MG/DL (7-18); CALCIUM LEVEL 8.7 MG/DL (8.5-10.1); CARBON DIOXIDE LEVEL 27 MEQ/L (21-32); CHLORIDE LEVEL 103 MEQ/L (98-107); CPK CREATINE PHOSPHOKINASE 356 U/L (39-308); CREATININE FOR GFR 0.77 MG/DL (0.70-1.30); ETHYL ALCOHOL (ETHANOL) < 0.003 % (0.000-0.010); GLOMERULAR FILTRATION RATE > 60.0 (>60); GLUCOSE, FASTING 87 MG/DL (70-100); POTASSIUM SERUM 3.9 MEQ/L (3.5-5.1); SALICYLATE LEVEL < 1.7 MG/DL (5.0-30.0); SODIUM LEVEL 140 MEQ/L (136-145); TOTAL PROTEIN 7.1 GM/DL (6.4-8.2)
--- OUTSIDE RECORDS SUMMARY | 2020-10-31 03:52 | CCD ---
Author Author [facility] Organization [facility] Address Unknown Phone Unavailable Care Team Providers Care Aluminum Molder Name Role Phone Ben PORTER MD Unavailable [...] L EDWARD DO Unavailable Unavailable Teresa Sesay, [facility] Unavailable Unavailable Zesemaj Jr, Elier Dyson DO [...] Delgado, E Melissa Unavailable Unavailable To, F Elier PA Unavailable Unavailable To, F Elier PA Unavailable Unavailable To, F Elier PA Unavailable Unavailable To, F Elier PA Unavailable Unavailable To, F Elier PA Unavailable Unavailable To, F Elier PA Unavailable Unavailable To, F Elier PA Unavailable Unavailable Latty, F Elier PA Unavailable Unavailable Latty, F Elier PA Unavailable Unavailable To, F Elier PA Unavailable Unavailable DOMENICA IV, L DIANA POWERPLANT OPERATOR Unavailable Unavailable DOMENICA IV, L DIANA POWERPLANT OPERATOR Unavailable Unavailable DOMENICA IV, L DIANA POWERPLANT OPERATOR Unavailable Unavailable DOMENICA IV, L DIANA POWERPLANT OPERATOR Unavailable Unavailable DOMENICA IV, L DIANA POWERPLANT OPERATOR Unavailable Unavailable DOMENICA IV, L DIANA POWERPLANT OPERATOR Unavailable Unavailable DOMENICA IV, L DIANA POWERPLANT OPERATOR Unavailable Unavailable DOMENICA IV, L DIANA POWERPLANT OPERATOR Unavailable Unavailable DOMENICA IV, L DIANA POWERPLANT OPERATOR Unavailable Unavailable DOMENICA IV, L DIANA POWERPLANT OPERATOR Unavailable Unavailable DOMENICA IV, L DIANA POWERPLANT OPERATOR Unavailable Unavailable DOMENICA IV, L DIANA POWERPLANT OPERATOR Unavailable Unavailable DOMENICA IV, L DIANA POWERPLANT OPERATOR Unavailable Unavailable DOMENICA IV, L DIANA POWERPLANT OPERATOR Unavailable Unavailable DOMENICA IV, L DIANA POWERPLANT OPERATOR Unavailable Unavailable DOMENICA IV, L DIANA POWERPLANT OPERATOR Unavailable Unavailable DOMENICA IV, L DIANA POWERPLANT OPERATOR Unavailable Unavailable DOMENICA IV, L DIANA POWERPLANT OPERATOR Unavailable Unavailable DOMENICA IV, L DIANA POWERPLANT OPERATOR Unavailable Unavailable DOMENICA IV, L DIANA POWERPLANT OPERATOR Unavailable Unavailable DOMENICA IV, L DIANA POWERPLANT OPERATOR Unavailable Unavailable DOMENICA IV, L DIANA POWERPLANT OPERATOR Unavailable Unavailable DOMENICA IV, L DIANA POWERPLANT OPERATOR Unavailable Unavailable DOMENICA IV, L DIANA POWERPLANT OPERATOR Unavailable Unavailable DOMENICA IV, L DIANA POWERPLANT OPERATOR Unavailable Unavailable DOMENICA IV, L DIANA POWERPLANT OPERATOR Unavailable Unavailable DOMENICA IV, L DIANA POWERPLANT OPERATOR Unavailable Unavailable DOMENICA IV, L DIANA POWERPLANT OPERATOR Unavailable Unavailable DOMENICA IV, L DIANA POWERPLANT OPERATOR Unavailable Unavailable DOMENICA IV, L DIANA POWERPLANT OPERATOR Unavailable Unavailable DOMENICA IV, L DIANA POWERPLANT OPERATOR Unavailable Unavailable DOMENICA IV, L DIANA POWERPLANT OPERATOR Unavailable Unavailable Kiel Hurtado Jr DO Unavailable [...] is protected by Article 27-F of the [facility] Public Health law. If you continue you may have access to information: Regarding HIV / AIDS; Provided by facilities licensed or operated by the [facility] Office of Mental Health; or Provided by the [facility] Office for People With Developmental Disabilities. If such information is present, then the following [facility] mandated warning applies: This information has been [...] law may result in a fine or skilled nursing sentence or both. A general authorization for the release of medical or other information is NOT sufficient authorization for further disc losure. Allergies and Adverse Reactions Type Description Substance Reaction Status Data Source(s ) Drug allergy Drug allergy No Known Allergies [facility] Family History Family Member Name Family Member Gender Family Member Status Date o f Status Description Data Source(s) Unknown Male Problem MEDENT ([facility]) Unknown Male Problem MED[facility] ([facility] Unknown Unknown Problem [facility] ([facility] Encounters Encounter Providers Location Date Indications Data Source(s ) Unknown [address] [facility] [address] 09/16/2020 12:00:00 AM EST eCW1 ([facility]) Outpatient Attender: Melissa Yun 08/07/2020 12:20:00 PM EST MEDENT ([facility]) Outpatient CPSCAORT-LABEJN 08/05/2020 10:03:00 AM EST [facility] Inpatient Attender: LOLY REASON DOAdmitter: LOLY MEIJA N DO ED-MSP 08/04/2020 11:29:00 PM EST - 08/06/2020 01:45:00 PM EST F11.20 [facility] F11.20 Patient discharged. Outpatient ED-CHEPAT 01/10/2020 02:00 :00 PM EDT - 01/10/2020 02:01:00 PM EDT [facility] PSD Patient discharged. Outpatient CPSCAORT-LABEJCici 01/07/2020 10:10:00 AM EDT [facility] Inpatient Attender: Jr Kiel Morrell OAttender: Kiel Hurtado JrAdmitter: Kiel Hurtado Jr ED-RUST 01/06/2020 05:14:00 PM EDT - 01/08/2020 01:15:00 PM EDT F19.20 [facility] F19.20 Patient discharged. Outpatient Attender: DIANA METZGER IV [facility] 2019 03:28:00 PM EDT - 12/18/2019 03:29:00 PM EDT [facility] PSD Patient discharged. Outpatient Attender: DIANA METZGER [facility] 2019 02:37:00 PM EDT - 12/13/2019 02:38:00 PM EDT [facility] PSD Patient discharged. Outpatient Attender: DIANA DOMENICA LENA [facility] 2019 12:53:00 PM EDT - 12/04/2019 12:54:00 PM EDT [facility] PSD Patient discharged. Outpatient Attender: DIANA DOMENICA LENA [facility] 2019 10:09:00 AM EST - 11/20/2019 10:10:00 AM EST [facility] PSD Patient discharged. Outpatient Attender: DIANA METZGER IVAttender: MARTHA Sesay [facility] 11/13/2019 10:08:00 AM EST - 11/13/2019 10:09:00 AM EST [facility] PSD Patient discharged. Outpatient Attender: DIANA METZGER IV [facility] 2019 03:58:00 PM EST - 10/17/2019 03:59:00 PM EST [facility] PSD Patient discharged. Outpatient Attender: MARTHA Sesay -[facility] 10/11/2019 02:04:00 PM EST - 10/11/2019 02:05:00 PM EST [facility] PSD Patient discharged. Outpatient Attender: DIANA METZGER IV -[facility] 2019 03:36:00 PM EST - 10/03/2019 03:37:00 PM EST [facility] PSD Patient discharged. Outpatient Attender: MARTHA Sesay [facility] 10/02/2019 11:02:00 AM EST - 10/02/2019 11:03:00 AM EST [facility] PSD Patient discharged. Outpatient Attender: DIANA METZGER IV [facility] 2018 01:29:00 PM EST - 09/19/2019 01:30:00 PM EST PSD [facility] PSD Patient discharged. Outpatient [facility]APELMayiLABEJN 09/14/2019 10:29:00 AM [facility] Inpatient Attender: CHERELLE PORTER MDAdmitter: CHERELLE PORTER MD ED-MSP 09/13/2019 08:50:00 PM EST - 09/15/2019 04:45:00 PM [facility]9.20 [facility] F19.20 Patient discharged. Preadmit Attender: Elier OSULLIVAN ED-ED 09/13/2019 07:18: 00 PM [facility] DETOX [facility]OX [facility] 09/08/2019 02:30:00 PM [facility] Inpatient Attender: Tyrell Alegre MDAdmitter: Tyrell Brewer D-RUST 09/08/2019 11:43:00 AM EST - 09/08/2019 05:29:00 PM [facility]920 [facility] F1920 Patient discharged. Medications Medication Brand Name Start Date Product Form Dose Route Admi nistrative Instructions Pharmacy Instructions Status Indications Reaction Description Data Source(s) Clonidine Hydrochloride 0.1 MG Oral Tablet Clonidine HCL 08/07/2020 12:00:00 AM EST active MEDENT ([facility]) Naltrexone hydrochloride 50 MG Oral Tablet Naltrexone HCL 08/07/2020 12:00:00 AM EST ORAL active MEDENT ([facility]) 8-2 mg 11/20/2019 12:00:00 AM EST [...] to powers Policy Powers Plan Information VAMSHI [id number] SP [id number] [facility] [id number] S [id number] [place] Medicaid/CHP/FHP Commercial [id number] Self [id number] PRIVATE PAY DANAE ZULUAGA 18 PHI VINICIUS ZULUAGA [facility] [id number] 18 [id number] ANSI-Medicaid [id number] ANSI-Commercial [id number] ANS-Medicaid [id number] ANSI-Commercial [id number] [facility] Commercial [id number] Self [id number] [facility] Commercial [id number] Self [id number] MEDICAID [id number] SP [id number] SELF PAY ONLY [id number] SP [id number] [facility] [id number] SP [id number] [facility] COMMUNITY PLAN [facility] [id number] SP [id number] [facility] PLAN [id number] SP [id number] [facility] GENERAL ASSUR [place] [id number] Workers Compensation Workers Compensation Self Workers Compensation Workers Compensation Self [employer] GENERAL [employer]UR[employer] P [id number] S [id number] SELF PAY UNAVAILABLE SP UNAVAILA BLE POMCO [id number] MO2 [id number] Problems, Conditions, and Diagnoses Code Display Name Description Problem Type Effective Dates Data Source(s) F15.20 Other stimulant dependence, uncomplicate d OTHER STIMULANT DEPENDENCE, UNCOMPLICATED Diagnosis 08/04/2020 11:29:00 PM EST Chhaya pichardo F12.20 Cannabis dependence, uncomplicated CANNABIS DEPE NDENCE, UNCOMPLICATED Diagnosis 08/04/2020 11:29:00 PM [facility] F17.210 Nicotine dependence, cigarettes, uncompl icated NICOTINE DEPENDENCE, CIGARETTES, UNCOMPLICATED Diagnosis 08/04/2020 11:29:00 PM [facility] Z53.29 Procedure and treatment not carried out because of patient's decision for other reasons PROC/TRTMT NOT CRD OUT BEC PT DECISION FOR OTH REASONS Diagn osis 08/04/2020 11:29:00 PM [facility] F11.23 Opioid dependence with withdrawal OPIOID DEPENDE NCE WITH WITHDRAWAL Diagnosis 08/04/2020 11:29:00 PM [facility] F11.20 Opioid dependence, uncomplicated OPIOID DEPENDEN CE, UNCOMPLICATED Diagnosis 08/04/2020 11:29:00 PM [facility] K04.7 Periapical abscess without sinus PERIAPICAL ABSC ESS WITHOUT SINUS Diagnosis 01/06/2020 05:14:00 PM EDT [facility] Z68.27 Body mass index (BMI) 27.0-27.9, adult B EMILIA MASS INDEX (BMI) 27.0-27.9, ADULT Diagnosis 01/06/2020 05:14:00 PM EDT [facility] E66.3 Overweight OVERWEIGHT Diagnosis 01/06/2020 05:14:00 PM ED [facility] E05.90 Thyrotoxicosis, unspecified without thyr otoxic crisis or storm THYROTOXICOSIS, UNSP WITHOUT THYROTOXIC CRISIS OR STORM Diagnosis 01/06/2020 05:14:00 PM T [facility] D72.829 Elevated white blood cell count, unspeci fied ELEVATED WHITE BLOOD CELL COUNT, UNSPECIFIED Diagnosis 01/06/2020 05:14:00 PM EDT [facility] E86.0 Dehydration DEHYDRATION Diagnosis 01/06/2020 05:14:00 PM T [facility] Z76.0 Encounter for issue of repeat prescripti on ENCOUNTER FOR ISSUE OF REPEAT PRESCRIPTION Diagnosis 12/13/2019 02:37:00 PM EDT [facility] F12.10 Cannabis abuse, uncomplicated CANNABIS ABUSE, UNCOMPLI CATED Diagnosis 09/13/2019 08:50:00 PM [facility] F17.213 Nicotine dependence, cigarettes, with wi thdrawal NICOTINE DEPENDENCE, CIGARETTES, WITH WITHDRAWAL Diagnosis 09/13/2019 08:50:00 PM [facility] F14.20 Cocaine dependence, uncomplicated COCAINE DEPEND ENCE, UNCOMPLICATED Diagnosis 09/13/2019 08:50:00 PM [facility] A56.2 Chlamydial infection of genitourinary tr act, unspecified CHLAMYDIAL INFECTION OF GENITOURINARY TRACT, UNSPECIFIED Diagnosis 09/13/20 19 08:50:00 PM [facility] Surgeries/Procedures Procedure Description Date Indications Data Source(s) Medication Management for Substance Abuse Treatment, N aloxone MEDS MGMT FOR SUBSTANCE ABUSE TREATMENT, NALOXONE 08/05/2020 12:00:00 AM [facility] Individual Counseling for Substance Abuse Treatment, C ontinuing Care INDIV BIOLOGY RESEARCH ASSISTANT FOR SUBSTANCE ABUSE TREATMENT, CONTINUING CARE 08/05/2020 12:00:00 AM [facility] Detoxification Services for Substance Abuse Treatment DETOXIFICATION SERVICES FOR SUBSTANCE ABUSE TREATMENT 08/05/2020 12:00:00 AM [facility] Individual Counseling for Substance Abuse Treatment, C ognitive-Behavioral INDIV BIOLOGY RESEARCH ASSISTANT FOR SUBSTANCE ABUSE, COGNITIVE BEHAVIORAL 01/07/2020 12:00:00 AM T [facility] Group Counseling for Substance Abuse Treatment, Cognit evangelina-Behavioral GROUP BIOLOGY RESEARCH ASSISTANT FOR SUBSTANCE ABUSE, COGNITIVE BEHAVIORAL 09/14/2019 12:00:00 AM [facility] IADNA NEISSERIA GONORRHOEAE AMPLIFIED PROBE TQ 019 12:00:00 AM [facility] IADNA CHLAMYDIA TRACHOMATIS AMPLIFIED PROBE TQ 019 12:00:00 AM [facility] THYROID STIMULATING HORMONE TSH 09/08/2019 12:00:00 AM [facility] IAAD EIA HEPATITIS B SURFACE ANTIGEN 09/08/2019 12:00: 00 AM [facility] CREATINE KINASE TOTAL 09/08/2019 12:00:00 AM [facility] HEPATITIS C ANTIBODY 09/08/2019 12:00:00 AM [facility] URINALYSIS MICROSCOPIC ONLY 09/08/2019 12:00:00 AM [facility] BLOOD COUNT COMPLETE AUTO&AUTO DIFRNTL WBC COUNT 09/08 12:00:00 AM [facility] [id number] 09/08/2019 12:00:00 AM EST [facility] [address] 09/08/2019 12:00:00 AM [facility] MAGNESIUM 09/08/2019 12:00:00 AM [facility] PHOSPHORUS INORGANIC 09/08/2019 12:00:00 AM [facility] HEPATIC FUNCTION PANEL 09/08/2019 12:00:00 AM [facility] COMPREHENSIVE METABOLIC PANEL 09/08/2019 12:00:00 AM E [facility] Results ID Date Data Source [id number] 09/23/2020 10:17:00 AM EST [facility] Name Value Range Interpretation Code Description Data Asha rce(s) Supporting Document(s) Respiratory specimen severe acute respir atory syndrome coronavirus 2 (SARS-CoV-2) RNA [facility] This lab was ordered by [facility] rachel and reported by . ID Date Data Source [id number] 08/07/2020 08:55:20 PM EST [facility] Name Value Range Interpretation Code Description Data Asha rce(s) Supporting Document(s) AMPHETAMINES,URINE (NEG) [facility] [place] [facility] BARBITURATES,URINE (NEG) [facility] [facility] BENZODIAZEPINE,URINE (NEG) Laborator [facility] [place] [facility] CANNABINOIDS,URINE (NEG) [facility] [place] [facility] COCAINE,URINE (NEG) Laboratory [facility] OPIATES,URINE (NEG) A [facility] SPECIMEN HAS BEEN SENT FOR CONFIRMATION. NOTE: Oxycodone is not sufficientlydetected by this screening assay. A moresensitive assay is available upon request. PHENCYCLIDINE,URINE (NEG) [facility] [place] [facility] PLEASE NOTE: Laboratory [facility] ARE REPORTED POSITIVE WHEN THE RESULT SEXCEED THE THRESHOLD (CUTOFF) INDICATED. ALIST OF POTENTIAL INTERFERENCES FOR EACHMETHOD CAN BE MADE AVAILABLE UPON REQUEST.A CONFIRMATORY ANALYSIS IS ORDERED ONALL DRUG CLASSES SCREENING POSITIVE BYTHIS METHOD.* * * * * * * * * * * * * * *THIS ASSAY IS NOT INTENDED TO BE USED FORMONITORING MEDICATION COMPLIANCE. ID Date Data Source [id number] 08/12/2020 04:19:50 PM EST [facility] [place] [facility] Name Value Range Interpretation Code Description Data Asha rce(s) Supporting Document(s) OPIATES URINE 6 AM <10 ng/mL [facility] [place] [facility] [place] [facility] [employer] INTERPRETIVE INFORMATION: Opiates, Urin e, Quantitative Methodology: [...] laboratory. Test developed and characteristics determined by [employer]. See Compliance Statement B: [employer] OPIATES CODEINE <20 ng/mL [facility] [place] [facility] OPIATES MORPHINE 266 ng/mL [facility] [employer] [facility] Consistent with use of a drug containin g morphine. High concentrations may reflect metabolism of heroin. OPIATES HYDROCODONE <20 ng/mL [facility] [place] [facility] [place] [facility] OPIATES HYDROMORPHO <20 ng/mL [facility] [place] [facility] [place] [facility] OPIATES OXYCODONE <20 ng/mL [facility] [place] [facility] OPIATES OXYMORPHONE <20 ng/mL [facility] [place] [facility] [place] [facility] OPIATES NOROXYCODONE <20 [facility]ator [facility] [place] [facility] Unit: ng/mL OPIATES NOROXYMORPHO <20 [facility] [place] [facility] Unit: ng/mL OPIATES NORHYDROCODO <20 [facility]ator [facility] [place] [facility] [place] [facility] Unit: ng/mL Performed By: [facility] [address] [place] [address] Lettuce Cutter: Glenda Villarreal MD ID Date Data Source [id number] 08/12/2020 06:59:24 PM EST [facility] Name Value Range Interpretation Code Description Data Asha rce(s) Supporting Document(s) BUPRENORPHINE UR 2 ng/mL [facility] INTERPRETIVE INFORMATION: Buprenorphine and Metabolites, Urine, Quantitative [...] laboratory. Test developed and characteristics determined by [employer]. See Compliance Statement B: [employer] NORBUPRENORPHINE UR 69 ng/mL [facility] [place] [facility] BUPRENORPHINE GLUCU 24 [facility] [place] [facility] Unit: ng/mL Consistent with use of a bup renorphine-containing drug. Glucuronide concentrations are semi-quantitative. NORBUPR GLUCURONIDE 121 [facility] [place] [facility] Unit: ng/mL NALOXONE,URINE <100 ng/mL Laboratory [facility] Performed By: [facility] [address] [place] [address] Lettuce Cutter: Glenda Villarreal MD ID Date Data Source [id number] 09/11/2020 11:56:56 AM EST [facility] Name Value Range Interpretation Code Description Data Asha rce(s) Supporting Document(s) SPECIMEN DESCRIPTION Laborator [facility] [place] [facility] C. TRACHOMATIS (NEG) Laboratory [facility] THIS ASSAY AMPLIFIES AND DETECTS TARGETD NA USING SALES OPERATIONS ANALYST- MEDIATEDAMPLIFICATIONTESTING PERFORMED ON [employer] N. GONORRHOEAE (NEG) Laboratory [facility] THIS ASSAY AMPLIFIES AND DETECTS TARGETD NA USING SALES OPERATIONS ANALYST- MEDIATEDAMPLIFICATIONTESTING PERFORMED ON [employer] COMMENT [facility] [place] [facility] SPECIMEN COLLECTIONTHE PATIENT VEDA ULD NOT HAVE URINATED FOR ATLEAST ONE HOUR PRIOR TO COLLECTION.FEMALE PATIENTS SHOULD NOT CLEANSE PRIOR TOCOLLECTING URINE SPECIMENS THIS MAYINTERFERE WITH THE TEST.THE PATIENT SHOULD PROVIDE 20-30 ML OF THEINITIAL URINE STREAM INTO A CONTAINERWITHOUT PRESERVATIVES. ID Date Data Source [id number] 08/07/2020 01:18:00 PM EST MED[facility] ([facility]) Name Value Range Interpretation Code Description Data Asha rce(s) Supporting Document(s) Amphetamines,Urine Laboratory test result MED[facility] ([facility]) Barbiturates,Urine Laboratory test result [facility] ([facility]) Cocaine,Urine Laboratory test result MED ENT ([facility]) Benzodiazepine,Urine Laboratory test result [facility] ([facility]) Cannabinoids,Urine Laboratory test result [facility] ([facility]) Opiates,Urine Laboratory test result [facility] ([facility]) SPECIMEN HAS BEEN SENT FOR CONFIRMATION. NOTE: Oxycodone is not sufficiently detected by this screening assay. A more sensitive assay is available upon request. Phencyclidine,Urine Laboratory test result MEDENT ([facility]) Please Note: Laboratory test result MEDE NT ([facility]) THESE ARE SCREENING IMMUNOASSAY TESTS TH AT [...] Unless otherwise specified, testing performed by [facility] [place] [facility], [address] [address] ID Date Data Source [id number] 08/06/2020 02:04:00 PM [facility] Name Value Range Interpretation Code Description Data Asha rce(s) Supporting Document(s) Chlamydia,Urine result Negative Normal (applies to non-n umeric results) [facility] Test Performed By: [facility] [address] [place] [address] Director: Angela Blanca MD . GC Urine result Negative Normal (applies to non-numeric results) [facility] Test Performed By: [facility] [address] [place] [address] Director: Angela Blanca MD . Methodology: Second generation nucleic acid amplification. ID Date Data Source [id number] 08/05/2020 01:19:00 AM EST [facility] Name Value Range Interpretation Code Description Data Asha rce(s) Supporting Document(s) Color,Urine Colorl-Dk Y Normal (applies to non-numeric res ults) [facility] Clarity,Urine Clear Normal (applies to non-numeric re sults) [facility] Specific [place],Urine 1.005-1.030 Normal (applies to non- numeric results) [facility] pH,Urine 5.0-8.0 Normal (applies to non-numeric resul ts) [facility] Protein,Urine Negative Normal (applies to non-numeric re sults) [facility] Glucose,Urine Negative Normal (applies to non-numeric re sults) [facility] Ketones,Urine Negative Normal (applies to non-numeric re sults) [facility] Blood,Urine Negative Normal (applies to non-numeric resu lts) [facility] Bilirubin,Urine Negative Normal (applies to non-numeric results) [facility] Urobilinogen,Urine 0.2-1.0 Normal (applies to non-numer ic results) [facility] Leukocyte Esterase,Urine Negative Normal (applies to non -numeric results) [facility] Nitrite,Urine Negative Normal (applies to non-numeric re sults) [facility] ID Date Data Source [id number] 08/05/2020 01:17:00 AM EST [facility] Name Value Range Interpretation Code Description Data Asha rce(s) Supporting Document(s) UDS Benzodiazepines Screen Negative Normal (applies to n on-numeric results) [facility] UDS Cocaine Screen Negative Normal (applies to non-numer ic results) [facility] UDS Ampetamine Screen Negative [facility] UDS Cannabinoids Screen Negative Normal (applies to non- numeric results) [facility] UDS Opiates Screen Negative Normal (applies to non-numer ic results) [facility] UDS Barbiturates Screen Negative Normal (applies to non- numeric results) [facility] ID Date Data Source [id number] 08/04/2020 09:27:00 PM EST [facility] First test? YESEmployed in healthcare? NOSymptomatic per CDC? NOHospitalized? NOICU? NOResident in congregated care? ex [facility], [facility] NO? NO Name Value Range Interpretation Code Description Data Asha rce(s) Supporting Document(s) SARS-CoV-2 RNA Negative Normal (applies to non-numeric r esults) [facility] Negative results should be treated as pr [...] Certificate of Accreditation. Factsheets for healthcare providers: https://www.fda.gov/media/442641/download Factsheets for patients: https://www.fda.gov/media/420648/download The ID NOW Instrument is a rapid molecular in vitro diagnostic test utilizing an isothermal nucleic acid amplification technology intended for the qualitative detection of nucleic acid from the SARS-CoV-2 viral RNA. THIS IS A STATE REPORTABLE COMMUNICABLE DISEASE. Manual entry verified by Radha Diane 08/04/202125 ID Date Data Source [id number] 09/02/2020 05:03:00 PM EST [facility] Value Range Interpretation Code Description Data Asha rce(s) Supporting Document(s) Hepatitis A Ab,IgG result Normal (applies to no n-numeric results) [facility] Result indicates immunity to hepatitis A infection from either vaccination or past exposure to hepatitis A. False-positive results may be observed in patients with CMV antibodies or heterophilic antibodies. REFERENCE VALUE Unvaccinated: Negative Vaccinated: Positive Test Performed by: [place] [address] Light Fixture Servicer: Boris Vang M.D. Ph.D.; CLIA# [id number] ID Date Data Source [id number] 09/02/2020 05:03:00 PM [facility] Value Range Interpretation Code Description Data Asha rce(s) Supporting Document(s) Hep Bs Ag Result T-Test Nonreactive Normal (applies to non -numeric results) [facility] Test Performed By: [facility] [address] [place] [address] Director: Angela Blanca MD ID Date Data Source [id number] 09/02/2020 05:03:00 PM EST [facility] Value Range Interpretation Code Description Data Asha rce(s) Supporting Document(s) Syphilis Serology Nonreactive Normal (applies to non-numer ic results) [facility] Test Performed By: [facility] [address] [place] [address] Director: Angela Blanca MD ID Date Data Source [id number] 09/02/2020 05:03:00 PM EST [facility] Value Range Interpretation Code Description Data Asha rce(s) Supporting Document(s) Hep C Ab-T Test Nonreactive Normal (applies to non-numeric results) [facility] Test Performed By: [facility] [address] [place] [address] Director: Angela Blanca MD ID Date Data Source [id number] 09/02/2020 05:03:00 PM [facility] Name Value Range Interpretation Code Description Data Asha rce(s) Supporting Document(s) Chlamydia,Urine Negative Normal (applies to non-numeric results) [facility] Test Performed By: [facility] [address] [place] [address] Director: Angela Blanca MD . GC Urine Negative Normal (applies to non-numeric resul ts) [facility] Test Performed By: [place] [address] Director: Angela Blanca MD . Methodology: Second generation nucleic acid amplification. ID Date Data Source [id number] 09/02/2020 05:03:00 PM [facility] Name Value Range Interpretation Code Description Data Asha rce(s) Supporting Document(s) CPK 49 U/L 39-308 Normal (applies to non-numeric resul ts) [facility] Test Performed By: [facility] [address] [place] [address] Director: Angela Blanca MD ID Date Data Source [id number] 08/06/2020 09:34:00 PM [facility] Name Value Range Interpretation Code Description Data Asha rce(s) Supporting Document(s) Hepatitis A Ab,IgG result Normal (applies to no n-numeric results) [facility] Result indicates immunity to hepatitis A infection from either vaccination or past exposure to hepatitis A. False-positive results may be observed in patients with CMV antibodies or heterophilic antibodies. REFERENCE VALUE Unvaccinated: Negative Vaccinated: Positive Test Performed by: [facility] [place] [address] Light Fixture Servicer: Boris Vang M.D. Ph.D.; CLIA# [id number] ID Date Data Source [id number] 08/05/2020 03:21:00 PM [facility] Value Range Interpretation Code Description Data Asha rce(s) Supporting Document(s) CPK result 49 U/L 39-308 Normal (applies to non-numeric resul ts) [facility] Test Performed By: [facility] [address] [place] [address] Director: Angela Blanca MD ID Date Data Source [id number] 08/05/2020 03:21:00 PM [facility] Value Range Interpretation Code Description Data Asha rce(s) Supporting Document(s) Hepatitis C Virus Ab result Nonreactive Norm al (applies to non-numeric results) [facility] Test Performed By: [facility] [address] [place] [address] Director: Angela Blanca MD ID Date Data Source [id number] 08/05/2020 03:21:00 PM [facility] Value Range Interpretation Code Description Data Asha rce(s) Supporting Document(s) Syphilis Serology result Nonreactive Normal (applies to non-numeric results) [facility] Test Performed By: [facility] [address] [place] [address] Director: Angela Blanca MD ID Date Data Source [id number] 08/05/2020 03:21:00 PM [facility] Value Range Interpretation Code Description Data Asha rce(s) Supporting Document(s) Hep Bs Ag result T-Test Nonreactive Normal (applies to non -numeric results) [facility] Test Performed By: [facility] [address] [place] [address] Director: Angela Blanca MD ID Date Data Source [id number] 08/05/2020 03:04:00 AM EST [facility] Name Value Range Interpretation Code Description Data Asha rce(s) Supporting Document(s) White Blood Count 3.5-10.5 Normal (applies to non-numeri c results) [facility] Red Blood Count 4.30-5.70 Normal (applies to non-numeric results) [facility] Hemoglobin 13.5-17.5 Normal (applies to non-numeric resul ts) [facility] Hematocrit 38.8-50.0 Normal (applies to non-numeric resul ts) [facility] Mean Corpuscular Volume 81.2-95.1 Normal (applies to non- numeric results) [facility] Mean Corpuscular Hgb 25.6-32.2 Normal (applies to non-num meme results) [facility] Mean Corpuscular Hgb Conc 32.0-36.0 Normal (applies to no n-numeric results) [facility] Red Cell Distribution Width 11.8-15.6 Normal (appli es to non-numeric results) [facility] Platelet Count 234 x10 3/uL 150-450 Normal (applies to non-numeric results) [facility] Mean Platelet Volume 9.4-12.4 Below low normal [facility] Neutrophils% (Auto) 31.0-71.0 Normal (applies to non-nume oliver results) [facility] Lymphocytes% (Auto) 20.0-55.[address] [facility] Monocytes% (Auto) 4.0-12.0 Above high normal [facility] Eosinophils% (Auto) 1.0-8.0 Normal (applies to non-nume oliver results) [facility] Basophils% (Auto) 0.0-2.0 Normal (applies to non-numeri c results) [facility] Immature Granulocytes% (Auto) 0.0-2.0 Normal (natty lies to non-numeric results) [facility] Neutrophils# (Auto) 1.50-6.20 Above high normal [facility] Lymphocytes# (Auto) 1.20-4.00 Normal (applies to non-nume oliver results) [facility] Monocytes# (Auto) 0.00-0.90 Above high normal [facility] Eosinophils# (Auto) 0.00-0.50 Normal (applies to non-nume oliver results) [facility] Basophils# (Auto) 0.00-0.20 Normal (applies to non-numeri c results) [facility] Immature Granulocytes# (Auto) 0.00-7.00 No rmal (applies to non-numeric results) [facility] ID Date Data Source [id number] 08/05/2020 02:58:00 AM EST [facility] Name Value Range Interpretation Code Description Data Asha rce(s) Supporting Document(s) Bilirubin,Direct 0.05-0.20 Normal (applies to non-numeric results) [facility] ID Date Data Source [id number] 08/05/2020 02:58:00 AM EST [facility] Name Value Range Interpretation Code Description Data Asha rce(s) Supporting Document(s) Phosphorus 2.5-4.9 Normal (applies to non-numeric resul ts) [facility] ID Date Data Source [id number] 08/05/2020 02:58:00 AM EST [facility] Name Value Range Interpretation Code Description Data Asha rce(s) Supporting Document(s) Sodium 139 mmol/L 136-145 Normal (applies to non-numeric resul ts) [facility] Potassium 3.5-5.1 Normal (applies to non-numeric resul ts) [facility] Chloride 102 mmol/L 98-107 Normal (applies to non-numeric resul ts) [facility] Carbon Dioxide CO2 21-32 Normal (applies to non-numer ic results) [facility] Anion Gap 5.0-16.0 Normal (applies to non-numeric resul ts) [facility] BUN 10 mg/dL 7-18 Normal (applies to non-numeric results) [facility] Creatinine,Serum 0.8-1.5 Normal (applies to non-numeric results) [facility] GFR >60 Normal (applies to non-numeric results) [facility] Glucose Level 103 mg/dL 60-99 Above high normal [facility] Reference range is only applicable when patient is fasting Note the following drug interference: Sulfasalazine Sulfapyridine Can see falsely depressed Can see falsely elevated result with up to 17% results with up to 11% decrease in measurement increase in measurement Recommend patients be collected for this test prior to administration of either drug. Calcium 8.5-10.[address] [facility] [address] [facility] Bil[facility],Total 0.1-1.9 Normal (applies to non-numeric results) [facility] SGOT(AST) 18 U/L 15-37 Normal (applies to non-numeric resul ts) [facility] Note the following drug interference: Sulfasalazine Sulfapyridine Can see falsely depressed Can see falsely elevated result with up to 10% results with up to 10% decrease in measurement increase in measurement Recommend patients be collected for this test prior to administration of either drug. SGPT(ALT) 30 U/L 12-78 Normal (applies to non-numeric resul ts) [facility] Note the following drug interference: Sulfasalazine Sulfapyridine Can see falsely depressed Can see falsely elevated result with up to 29% results with up to 10% decrease in measurement increase in measurement Recommend patients be collected for this test prior to administration of either drug. Alkaline Phosphatase 84 U/L 38-126 Normal (applies to non-num meme results) [facility] can increase Alkaline Phosp le vels up to 2 times the normal adult value. Normal values for children and adolescents are 2 to 3 times the normal adult value. Total Protein 6.0-8.2 Normal (applies to non-numeric re sults) [facility] Albumin Level 3.4-5.0 Normal (applies to non-numeric re sults) [facility] ID Date Data Source [id number] 08/05/2020 02:58:00 AM EST [facility] Name Value Range Interpretation Code Description Data Asha rce(s) Supporting Document(s) Magnesium 1.8-2.4 Normal (applies to non-numeric resul ts) [facility] ID Date Data Source [id number] 08/05/2020 02:58:00 AM EST [facility] Name Value Range Interpretation Code Description Data Asha rce(s) Supporting Document(s) Thyroid Stimulate Hormone TSH 0.358-3.740 Below low normal [facility] ID Date Data Source [id number] 08/05/2020 02:10:00 AM EST [facility] Name Value Range Interpretation Code Description Data Asha rce(s) Supporting Document(s) Ethanol Less than 10.0 Normal (applies to non-numeric r esults) [facility] ID Date Data Source [id number] 01/08/2020 06:18:00 AM EDT [facility] Imaging Services Department Imaging Report [address] [place] [address] %(RAD)RES..mtdd.print.filter("line") Name: DANAE ZULUAGA : 1990 Age/Sex: 29M Ordering Provider: Kiel Hurtado Jr, DO Med Rec #: [id number] Reg Status: DIS IN Room #: 129-1 Date of Service: 01/07/20 Report Number: [id number] cc:PCP None; Kiel Hurtado Jr, DO Send Report To: [id number] XRP/XR Chest 2 View [Pa & Lat] [...] Date/Time: 01/07/20 1058 Transcribed Date/Time: 04/20/20 0618 Draw Frame Tender: BONI Name Value Range Interpretation Code Description Data Asha rce(s) Supporting Document(s) ID Date Data Source [id number] 01/07/2020 07:39:00 AM EDT [facility] Name Value Range Interpretation Code Description Data Asha rce(s) Supporting Document(s) Phosphorus 2.5-4.9 Normal (applies to non-numeric resul ts) [facility] ID Date Data Source [id number] 01/07/2020 07:39:00 AM EDT [facility] Name Value Range Interpretation Code Description Data Asha rce(s) Supporting Document(s) Magnesium 1.8-2.4 Normal (applies to non-numeric resul ts) [facility] ID Date Data Source [id number] 01/07/2020 07:38:00 AM EDT [facility] Name Value Range Interpretation Code Description Data Asha rce(s) Supporting Document(s) White Blood Count 3.5-10.5 Above high normal [facility] Red Blood Count 4.30-5.70 Normal (applies to non-numeric results) [facility] Hemoglobin 13.5-17.5 Normal (applies to non-numeric resul ts) [facility] Hematocrit 38.8-50.0 Normal (applies to non-numeric resul ts) [facility] Mean Corpuscular Volume 81.2-95.1 Normal (applies to non- numeric results) [facility] Mean Corpuscular Hgb 25.6-32.2 Normal (applies to non-num meme results) [facility] Mean Corpuscular Hgb Conc 32.0-36.0 Normal (applies to no n-numeric results) [facility] Red Cell Distribution Width 11.8-15.6 Normal (appli es to non-numeric results) [facility] Platelet Count 224 x10 3/uL 150-450 Normal (applies to non-numeric results) [facility] Mean Platelet Volume 9.4-12.4 Normal (applies to non-num meme results) [facility] Neutrophils% (Auto) 31.0-71.0 Above high normal [facility] Lymphocytes% (Auto) 20.0-55.0 Normal (applies to non-nume oliver results) [facility] Monocytes% (Auto) 4.0-12.0 Normal (applies to non-numeri c results) [facility] Eosinophils% (Auto) 1.0-8.[address] [facility] Basophils% (Auto) 0.0-2.0 Normal (applies to non-numeri c results) [facility] Immature Granulocytes% (Auto) 0.0-2.0 Normal (natty lies to non-numeric results) [facility] Neutrophils# (Auto) 1.50-6.20 Above high normal [facility] Lymphocytes# (Auto) 1.20-4.00 Normal (applies to non-nume oliver results) [facility] Monocytes# (Auto) 0.00-0.90 Above high normal [facility] Eosinophils# (Auto) 0.00-0.50 Normal (applies to non-nume oliver results) [facility] Basophils# (Auto) 0.00-0.20 Normal (applies to non-numeri c results) [facility] Immature Granulocytes# (Auto) 0.00-7.00 No rmal (applies to non-numeric results) [facility] ID Date Data Source [id number] 01/09/2020 04:56:00 PM EDT [facility] Name Value Range Interpretation Code Description Data Asha rce(s) Supporting Document(s) Chlamydia,Urine result Negative Normal (applies to non-n umeric results) [facility] [address] [place] [address] Director: Angela Blanca MD . GC Urine result Negative Normal (applies to non-numeric results) [facility] [address] [place] [address] Director: Angela Blanca MD . Methodology: Second generation nucleic acid amplification. ID Date Data Source [id number] 01/07/2020 12:14:00 AM EDT [facility] Name Value Range Interpretation Code Description Data Asha rce(s) Supporting Document(s) UDS Phencyclidine Screen Negative Normal (applies to non -numeric results) [facility] UDS Benzodiazepines Screen Negative Normal (applies to n on-numeric results) [facility] UDS Cocaine Screen Negative [facility] UDS Ampetamine Screen Negative Normal (applies to non-nu meric results) [facility] UDS Cannabinoids Screen Negative [facility] UDS Opiates Screen Negative [facility] UDS Barbiturates Screen Negative Normal (applies to non- numeric results) [facility] UDS Tricyclic Screen Negative Normal (applies to non-num meme results) [facility] Therapeutic Drug Ranges for Emergency Threshold Levels [...] treatment purposes only. ID Date Data Source [id number] 01/06/2020 11:43:00 PM [facility] Collected By: Nurse's Aide Initials: Time Collected: [id number] Name Value Range Interpretation Code Description Data Asha rce(s) Supporting Document(s) Color,Urine Colorl-Dk Y Normal (applies to non-numeric res ults) [facility] Clarity,Urine Clear Normal (applies to non-numeric re sults) [facility] Specific [place],Urine 1.005-1.030 Normal (applies to non- numeric results) [facility] pH,Urine 5.0-8.0 Normal (applies to non-numeric resul ts) [facility] Protein,Urine Negative Normal (applies to non-numeric re sults) [facility] Glucose,Urine Negative Normal (applies to non-numeric re sults) [facility] Ketones,Urine Negative Normal (applies to non-numeric re sults) [facility] Blood,Urine Negative Normal (applies to non-numeric resu lts) [facility] Bilirubin,Urine Negative Normal (applies to non-numeric results) [facility] Urobilinogen,Urine 0.2-1.0 Normal (applies to non-numer ic results) [facility] Leukocyte Esterase,Urine Negative Normal (applies to non -numeric results) [facility] Nitrite,Urine Negative Normal (applies to non-numeric re sults) [facility] ID Date Data Source [id number] 01/09/2020 08:47:00 PM EDT [facility] Name Value Range Interpretation Code Description Data Asha rce(s) Supporting Document(s) Hepatitis A Ab,IgG result Normal (applies to no n-numeric results) [facility] Result indicates immunity to hepatitis A infection from either vaccination or past exposure to hepatitis A. False-positive results may be observed in patients with CMV antibodies or heterophilic antibodies. REFERENCE VALUE Unvaccinated: Negative Vaccinated: Positive Test Performed by: [place] [address] Light Fixture Servicer: Boris Vang M.D. Ph.D.; CLIA# [id number] ID Date Data Source [id number] 01/09/2020 08:04:00 PM EDT [facility] Name Value Range Interpretation Code Description Data [facility] Supporting Document(s) Hepatitis A Ab,IgG result Normal (applies to no n-numeric results) [facility] Result indicates immunity to hepatitis A infection from either vaccination or past exposure to hepatitis A. False-positive results may be observed in patients with CMV antibodies or heterophilic antibodies. REFERENCE VALUE Unvaccinated: Negative Vaccinated: Positive Test Performed by: [place] [address] Light Fixture Servicer: Boris Vang M.D. Ph.D.; CLIA# [id number] ID Date Data Source [id number] 01/09/2020 04:51:00 PM EDT [facility] Value Range Interpretation Code Description Data Asha rce(s) Supporting Document(s) Chlamydia,Urine Negative Normal (applies to non-numeric results) [facility] Test Performed By: [place] [address] Director: Angela Blanca MD . GC Urine Negative Normal (applies to non-numeric resul ts) [facility] Test Performed By: [place] [address] Director: Angela Blanca MD . Methodology: Second generation nucleic acid amplification. ID Date Data Source [id number] 01/07/2020 03:06:00 PM EDT [facility] Value Range Interpretation Code Description Data Asha rce(s) Supporting Document(s) Hepatitis C Virus Ab result Nonreactive Norm al (applies to non-numeric results) [facility] Test Performed By: [place] [address] Director: Angela Blanca MD ID Date Data Source [id number] 01/07/2020 03:06:00 PM EDT [facility] Value Range Interpretation Code Description Data Asha rce(s) Supporting Document(s) CPK result 185 U/L 39-308 Normal (applies to non-numeric resul ts) [facility] Test Performed By: [place] [address] Director: Angela Blanca MD ID Date Data Source [id number] 01/07/2020 03:06:00 PM EDT [facility] Value Range Interpretation Code Description Data Asha rce(s) Supporting Document(s) Hep Bs Ag result T-Test Nonreactive Normal (applies to non -numeric results) [facility] Test Performed By: [place] [address] Director: Angela Blanca MD ID Date Data Source [id number] 01/07/2020 03:06:00 PM EDT [facility] Value Range Interpretation Code Description Data Asha rce(s) Supporting Document(s) Syphilis Serology result Nonreactive Normal (applies to non-numeric results) [facility] Test Performed By: [facility] [address] [place] [address] Director: Angela Blanca MD ID Date Data Source [id number] 01/07/2020 02:57:00 PM EDT [facility] Value Range Interpretation Code Description Data Asha rce(s) Supporting Document(s) Hep Bs Ag Result T-Test Nonreactive Normal (applies to non -numeric results) [facility] Test Performed By: [place] [address] Director: Angela Blanca MD ID Date Data Source [id number] 01/07/2020 02:57:00 PM EDT [facility] Value Range Interpretation Code Description Data Asha rce(s) Supporting Document(s) Hep C Ab-T Test Nonreactive Normal (applies to non-numeric results) [facility] Test Performed By: [place] [address] Director: Angela Blanca MD ID Date Data Source [id number] 01/07/2020 02:57:00 PM EDT [facility] Value Range Interpretation Code Description Data Asha rce(s) Supporting Document(s) Syphilis Serology Nonreactive Normal (applies to non-numer ic results) [facility] Test Performed By: [facility] [address] [place] [address] Director: Angela Blanca MD ID Date Data Source [id number] 01/07/2020 01:37:00 PM EDT [facility] Value Range Interpretation Code Description Data Asha rce(s) Supporting Document(s) CPK 185 U/L 39-308 Normal (applies to non-numeric resul ts) [facility] Test Performed By: [facility] [address] [place] [address] Director: Angela Blanca MD ID Date Data Source [id number] 01/06/2020 07:12:00 PM EDT [facility] Name Value Range Interpretation Code Description Data Asha rce(s) Supporting Document(s) Sodium 140 mmol/L 136-145 Normal (applies to non-numeric resul ts) [facility] Potassium 3.5-5.1 Normal (applies to non-numeric resul ts) [facility] Chloride 103 mmol/L 98-107 Normal (applies to non-numeric resul ts) [facility] Carbon Dioxide CO2 21-32 Normal (applies to non-numer ic results) [facility] Anion Gap 5.0-16.0 Normal (applies to non-numeric resul ts) [facility] BUN 14 mg/dL 7-18 Normal (applies to non-numeric results) [facility] Creatinine,Serum 0.8-1.5 Normal (applies to non-numeric results) [facility] GFR >60 Normal (applies to non-numeric results) [facility] Glucose Level 94 mg/dL 60-99 Normal (applies to non-numeric re sults) [facility] Reference range is only applicable when patient is fasting Note the following drug interference: Sulfasalazine Sulfapyridine Can see falsely depressed Can see falsely elevated result with up to 17% results with up to 11% decrease in measurement increase in measurement Recommend patients be collected for this test prior to administration of either drug. Calcium 8.5-10.1 Normal (applies to non-numeric resul ts) [facility] Bilirubin,Total 0.1-1.9 Normal (applies to non-numeric results) [facility] SGOT(AST) 18 U/L 15-37 Normal (applies to non-numeric resul ts) [facility] Note the following drug interference: Sulfasalazine Sulfapyridine Can see falsely depressed Can see falsely elevated result with up to 10% results with up to 10% decrease in measurement increase in measurement Recommend patients be collected for this test prior to administration of either drug. SGPT(ALT) 24 U/L 12-78 Normal (applies to non-numeric resul ts) [facility] Note the following drug interference: Sulfasalazine Sulfapyridine Can see falsely depressed Can see falsely elevated result with up to 29% results with up to 10% decrease in measurement increase in measurement Recommend patients be collected for this test prior to administration of either drug. Alkaline Phosphatase 84 U/L 38-126 Normal (applies to non-num meme results) [facility] can increase Alkaline Phosp le vels up to 2 times the normal adult value. Normal values for children and adolescents are 2 to 3 times the normal adult value. Total Protein 6.0-8.2 Normal (applies to non-numeric re sults) [facility] Albumin Level 3.4-5.0 Normal (applies to non-numeric re sults) [facility] ID Date Data Source [id number] 01/06/2020 07:12:00 PM EDT [facility] Name Value Range Interpretation Code Description Data Asha rce(s) Supporting Document(s) Bilirubin,Direct 0.05-0.20 Normal (applies to non-numeric results) [facility] ID Date Data Source [id number] 01/06/2020 07:12:00 PM EDT [facility] Name Value Range Interpretation Code Description Data Asha rce(s) Supporting Document(s) Phosphorus 2.5-4.9 Normal (applies to non-numeric resul ts) [facility] ID Date Data Source [id number] 01/06/2020 07:12:00 PM EDT [facility] Name Value Range Interpretation Code Description Data Asha rce(s) Supporting Document(s) Magnesium 1.8-2.4 Normal (applies to non-numeric resul ts) [facility] ID Date Data Source [id number] [facility] Description Data Asha rce(s) Supporting Document(s) Thyroid Stimulate Hormone TSH 0.358-3.74 Below low normal [facility] ID Date Data Source [id number] 01/06/2020 06:56:00 PM EDT [facility] Name Value Range Interpretation Code Description Data Asha rce(s) Supporting Document(s) Ethanol Less than 10.0 Normal (applies to non-numeric r esults) [facility] ID Date Data Source [id number] 01/06/2020 06:31:00 PM EDT [facility] Name Value Range Interpretation Code Description Data Asha rce(s) Supporting Document(s) White Blood Count 3.5-10.5 Above high normal [facility] Red Blood Count 4.30-5.70 Normal (applies to non-numeric results) [facility] Hemoglobin 13.5-17.5 Normal (applies to non-numeric resul ts) [facility] Hematocrit 38.8-50.0 Normal (applies to non-numeric resul ts) [facility] Mean Corpuscular Volume 81.2-95.1 Normal (applies to non- numeric results) [facility] Mean Corpuscular Hgb 25.6-32.2 Normal (applies to non-num meme results) [facility] Mean Corpuscular Hgb Conc 32.0-36.0 Normal (applies to no n-numeric results) [facility] Red Cell Distribution Width 11.8-15.6 Normal (appli es to non-numeric results) [facility] Platelet Count 226 x10 3/uL 150-450 Normal (applies to non-numeric results) [facility] Mean Platelet Volume 9.4-12.4 Normal (applies to non-num meme results) [facility] Neutrophils% (Auto) 31.0-71.0 Above high normal [facility] Lymphocytes% (Auto) 20.0-55.0 Normal (applies to non-nume oliver results) [facility] Monocytes% (Auto) 4.0-12.0 Normal (applies to non-numeri c results) [facility] Eosinophils% (Auto) 1.0-8.[address] [facility] Basophils% (Auto) 0.0-2.0 Normal (applies to non-numeri c results) [facility] Immature Granulocytes% (Auto) 0.0-2.0 Normal (natty lies to non-numeric results) [facility] Neutrophils# (Auto) 1.50-6.20 Above high normal [facility] Lymphocytes# (Auto) 1.20-4.00 Normal (applies to non-nume oliver results) [facility] Monocytes# (Auto) 0.00-0.90 Normal (applies to non-numeri c results) [facility] Eosinophils# (Auto) 0.00-0.50 Normal (applies to non-nume oliver results) [facility] Basophils# (Auto) 0.00-0.20 Normal (applies to non-numeri c results) [facility] Immature Granulocytes# (Auto) 0.00-7.00 No rmal (applies to non-numeric results) [facility] ID Date Data Source [id number] 09/15/2019 07:31:00 AM EST [facility] Name Value Range Interpretation Code Description Data Asha rce(s) Supporting Document(s) Thyroid Stimulate Hormone TSH 0.358-3.74 No rmal (applies to non-numeric results) [facility] ID Date Data Source [id number] 09/15/2019 07:31:00 AM EST [facility] Name Value Range Interpretation Code Description Data Asha rce(s) Supporting Document(s) Sodium 142 mmol/L 136-145 Normal (applies to non-numeric resul ts) [facility] Potassium 3.5-5.1 Normal (applies to non-numeric resul ts) [facility] Chloride 104 mmol/L 98-107 Normal (applies to non-numeric resul ts) [facility] Carbon Dioxide CO2 21-32 Normal (applies to non-numer ic results) [facility] Anion Gap 5.0-16.0 Normal (applies to non-numeric resul ts) [facility] BUN 19 mg/dL 7-18 Above high normal [facility] Creatinine,Serum 0.8-1.5 Normal (applies to non-numeric results) [facility] GFR >60 Normal (applies to non-numeric results) [facility] Glucose Level 96 mg/dL 60-99 Normal (applies to non-numeric re sults) [facility] Reference range is only applicable when patient is fasting Note the following drug interference: Sulfasalazine Sulfapyridine Can see falsely depressed Can see falsely elevated result with up to 17% results with up to 11% decrease in measurement increase in measurement Recommend patients be collected for this test prior to administration of either drug. Calcium 8.5-10.1 Normal (applies to non-numeric resul ts) [facility] Bilirubin,Total 0.1-1.9 Normal (applies to non-numeric results) [facility] SGOT(AST) 17 U/L 15-37 Normal (applies to non-numeric resul ts) [facility] Note the following drug interference: Sulfasalazine Sulfapyridine Can see falsely depressed Can see falsely elevated result with up to 10% results with up to 10% decrease in measurement increase in measurement Recommend patients be collected for this test prior to administration of either drug. SGPT(ALT) 35 U/L 12-78 Normal (applies to non-numeric resul ts) [facility] Note the following drug interference: Sulfasalazine Sulfapyridine Can see falsely depressed Can see falsely elevated result with up to 29% results with up to 10% decrease in measurement increase in measurement Recommend patients be collected for this test prior to administration of either drug. Alkaline Phosphatase 72 U/L 38-126 Normal (applies to non-num meme results) [facility] can increase Alkaline Phosp le vels up to 2 times the normal adult value. Normal values for children and adolescents are 2 to 3 times the normal adult value. Total Protein 6.0-8.2 Normal (applies to non-numeric re sults) [facility] Albumin Level 3.4-5.0 Normal ([facility] ID Date Data Source [id number] 09/15/2019 06:53:00 AM EST [facility] Name Value Range Interpretation Code Description Data Asha rce(s) Supporting Document(s) White Blood Count 3.5-10.5 Above high normal [facility] Red Blood Count 4.30-5.70 Normal (applies to non-numeric results) [facility] Hemoglobin 13.5-17.5 Normal (applies to non-numeric resul ts) [facility] Hematocrit 38.8-50.0 Normal (applies to non-numeric resul ts) [facility] Mean Corpuscular Volume 81.2-95.1 Normal (applies to non- numeric results) [facility] Mean Corpuscular Hgb 25.6-32.2 Normal (applies to non-num meme results) [facility] Mean Corpuscular Hgb Conc 32.0-36.0 Normal (applies to no n-numeric results) [facility] Red Cell Distribution Width 11.8-15.6 Normal (appli es to non-numeric results) [facility] Platelet Count 239 x10 3/uL 150-450 Normal (applies to non-numeric results) [facility] Mean Platelet Volume 9.4-12.4 Normal (applies to non-num meme results) [facility] Neutrophils% (Auto) 31.0-71.0 Normal (applies to non-nume oliver results) [facility] Lymphocytes% (Auto) 20.0-55.0 Normal (applies to non-nume oliver results) [facility] Monocytes% (Auto) 4.0-12.0 Normal (applies to non-numeri c results) [facility] Eosinophils% (Auto) 1.0-8.0 Normal (applies to non-nume oliver results) [facility] Basophils% (Auto) 0.0-2.0 Normal (applies to non-numeri c results) [facility] Immature Granulocytes% (Auto) 0.0-2.0 Normal (natty lies to non-numeric results) [facility] Neutrophils# (Auto) 1.50-6.20 Normal (applies to non-nume oliver results) [facility] Lymphocytes# (Auto) 1.20-4.00 Above high normal [facility] Monocytes# (Auto) 0.00-0.90 Above high normal [facility] Eosinophils# (Auto) 0.00-0.50 Normal (applies to non-nume oliver results) [facility] Basophils# (Auto) 0.00-0.20 Normal (applies to non-numeri c results) [facility] Immature Granulocytes# (Auto) 0.00-7.00 No rmal (applies to non-numeric results) [facility] ID Date Data Source [id number] 09/15/2019 03:21:00 PM EST [facility] Name Value Range Interpretation Code Description Data Asha rce(s) Supporting Document(s) Hepatitis A Ab,IgG result Normal (applies to no n-numeric results) [facility] Result indicates no past exposure or imm unity to hepatitis A infection. REFERENCE VALUE Unvaccinated: Negative Vaccinated: Positive Test Performed by: [place] [address] [employer]: Boris Vang M.D. Ph.D.; CLIA# [id number] ID Date Data Source [id number] 09/15/2019 03:07:00 PM EST [facility] Name Value Range Interpretation Code Description Data Asha e(s) Supporting Document(s) Hepatitis A Ab,IgG result Normal (applies to no n-numeric results) [facility] Result indicates no past exposure or imm unity to hepatitis A infection. REFERENCE VALUE Unvaccinated: Negative Vaccinated: Positive Test Performed by: [place] [address] [employer] Servicer: Boris Vang M.D. Ph.D.; CLIA# [id number] ID Date Data Source [id number] 09/14/2019 03:14:00 PM EST [facility] Name Value Range Interpretation Code Description Data Asha rce(s) Supporting Document(s) CPK result 129 U/L 39-308 Normal (applies to non-numeric resul ts) [facility] [address] [place] [address] Director: Angela Blanca MD ID Date Data Source [id number] 09/14/2019 01:36:00 PM EST [facility] Name Value Range Interpretation Code Description Data Asha rce(s) Supporting Document(s) CPK 129 U/L 39-308 Normal (applies to non-numeric resul ts) [facility] Test [facility] [address] [place] [address] Director: Angela Blanca MD ID Date Data Source [id number] 09/14/2019 01:02:00 AM EST [facility] Name Value Range Interpretation Code Description Data Asha rce(s) Supporting Document(s) Sodium 143 mmol/L 136-145 Normal (applies to non-numeric resul ts) [facility] Potassium 3.5-5.1 Normal (applies to non-numeric resul ts) [facility] Chloride 105 mmol/L 98-107 Normal (applies to non-numeric resul ts) [facility] Carbon Dioxide CO2 21-32 Normal (applies to non-numer ic results) [facility] Anion Gap 5.0-16.0 Normal (applies to non-numeric resul ts) [facility] BUN 13 mg/dL 7-18 Normal (applies to non-numeric results) [facility] Creatinine,Serum 0.8-1.5 Normal (applies to non-numeric results) [facility] GFR >60 Normal (applies to non-numeric results) [facility] Glucose Level 101 mg/dL 60-99 Above high normal [facility] Reference range is only applicable when patient is fasting Note the following drug interference: Sulfasalazine Sulfapyridine Can see falsely depressed Can see falsely elevated result with up to 17% results with up to 11% decrease in measurement increase in measurement Recommend patients be collected for this test prior to administration of either drug. Calcium 8.5-10.1 Normal (applies to non-numeric resul ts) [facility] Bilirubin,Total 0.1-1.9 Normal (applies to non-numeric results) [facility] SGOT(AST) 17 U/L 15-37 Normal (applies to non-numeric resul ts) [facility] Note the following drug interference: Sulfasalazine Sulfapyridine Can see falsely depressed Can see falsely elevated result with up to 10% results with up to 10% decrease in measurement increase in measurement Recommend patients be collected for this test prior to administration of either drug. SGPT(ALT) 33 U/L 12-78 Normal (applies to non-numeric resul ts) [facility] Note the following drug interference: Sulfasalazine Sulfapyridine Can see falsely depressed Can see falsely elevated result with up to 29% results with up to 10% decrease in measurement increase in measurement Recommend patients be collected for this test prior to administration of either drug. Alkaline Phosphatase 83 U/L 38-126 Normal (applies to non-num meme results) [facility] can increase Alkaline Phosp le vels up to 2 times the normal adult value. Normal values for children and adolescents are 2 to 3 times the normal adult value. Total Protein 6.0-8.2 Normal (applies to non-numeric re sults) [facility] Albumin Level 3.4-5.0 Normal (applies to non-numeric re sults) [facility] ID Date Data Source [id number] 09/14/2019 01:02:00 AM [facility] Name Value Range Interpretation Code Description Data Asha rce(s) Supporting Document(s) Bilirubin,Direct 0.05-0.20 Normal (applies to non-numeric results) [facility] ID Date Data Source [id number] 09/14/2019 01:02:00 AM [facility] Name Value Range Interpretation Code Description Data Asha rce(s) Supporting Document(s) Phosphorus 2.5-4.9 Normal (applies to non-numeric resul ts) [facility] ID Date Data Source [id number] 09/14/2019 01:02:00 AM [facility] Name Value Range Interpretation Code Description Data Asha rce(s) Supporting Document(s) Magnesium 1.8-2.4 Above high normal [facility] ID Date Data Source [id number] 09/14/2019 01:02:00 AM [facility] Name Value Range Interpretation Code Description Data Asha rce(s) Supporting Document(s) Thyroid Stimulate Hormone TSH 0.358-3.74 Below low normal [facility] ID Date Data Source [id number] 09/14/2019 12:37:00 AM [facility] Name Value Range Interpretation Code Description Data Asha rce(s) Supporting Document(s) Ethanol Less than 10.0 Normal (applies to non-numeric r esults) [facility] ID Date Data Source [id number] 09/13/2019 11:54:00 PM [facility] Name Value Range Interpretation Code Description Data Asha rce(s) Supporting Document(s) White Blood Count 3.5-10.5 Above high normal [facility] Red Blood Count 4.30-5.70 Normal (applies to non-numeric results) [facility] Hemoglobin 13.5-17.5 Normal (applies to non-numeric resul ts) [facility] Hematocrit 38.8-50.0 Normal (applies to non-numeric resul ts) [facility] Mean Corpuscular Volume 81.2-95.1 Normal (applies to non- numeric results) [facility] Mean Corpuscular Hgb 25.6-32.2 Normal (applies to non-num meme results) [facility] Mean Corpuscular Hgb Conc 32.0-36.0 Normal (applies to no n-numeric results) [facility] Red Cell Distribution Width 11.8-15.6 Normal (appli es to non-numeric results) [facility] Platelet Count 274 x10 3/uL 150-450 Normal (applies to non-numeric results) [facility] Mean Platelet Volume 9.4-12.4 Normal (applies to non-num meme results) [facility] Neutrophils% (Auto) 31.0-71.0 Normal (applies to non-nume oliver results) [facility] Lymphocytes% (Auto) 20.0-55.0 Normal (applies to non-nume oliver results) [facility] Monocytes% (Auto) 4.0-12.0 Normal (applies to non-numeri c results) [facility] Eosinophils% (Auto) 1.0-8.[address] [facility] Basophils% (Auto) 0.0-2.0 Normal (applies to non-numeri c results) [facility] Immature Granulocytes% (Auto) 0.0-2.0 Normal (natty lies to non-numeric results) [facility] Neutrophils# (Auto) 1.50-6.20 Above high normal [facility] Lymphocytes# (Auto) 1.20-4.00 Normal (applies to non-nume oliver results) [facility] Monocytes# (Auto) 0.00-0.90 Above high normal [facility] Eosinophils# (Auto) 0.00-0.50 Normal (applies to non-nume olvier results) [facility] Basophils# (Auto) 0.00-0.20 Normal (applies to non-numeri c results) [facility] Immature Granulocytes# (Auto) 0.00-7.00 No rmal (applies to non-numeric results) [facility] ID Date Data Source [id number] 09/14/2019 12:34:00 AM EST [facility] Name Value Range Interpretation Code Description Data Asha rce(s) Supporting Document(s) UDS Phencyclidine Screen Negative Normal (applies to non -numeric results) [facility] UDS Benzodiazepines Screen Negative Normal (applies to n on-numeric results) [facility] UDS Cocaine Screen Negative Normal (applies to non-numer ic results) [facility] UDS Ampetamine Screen Negative Normal (applies to non-nu meric results) [facility] UDS Cannabinoids Screen Negative [facility] UDS Opiates Screen Negative [facility] UDS Barbiturates Screen Negative Normal (applies to non- numeric results) [facility] UDS Tricyclic Screen Negative Normal (applies to non-num meme results) [facility] Therapeutic Drug Ranges for Emergency Threshold Levels [...] treatment purposes only. ID Date Data Source [id number] 09/14/2019 12:24:00 AM [facility] Collected By: Nurse's Aide Initials: DN Time Collected: 2099 Name Value Range Interpretation Code Description Data Asha rce(s) Supporting Document(s) Color,Urine Colorl-Dk Y Normal (applies to non-numeric res ults) [facility] Clarity,Urine Clear Normal (applies to non-numeric re sults) [facility] Specific [place],Urine 1.015-1.025 Normal (applies to non- numeric results) [facility] pH,Urine 5.0-7.0 Normal (applies to non-numeric resul ts) [facility] Protein,Urine Negative Normal (applies to non-numeric re sults) [facility] Glucose,Urine Negative Normal (applies to non-numeric re sults) [facility] Ketones,Urine Negative [facility] Blood,Urine Negative Normal (applies to non-numeric resu lts) [facility] Bilirubin,Urine Negative Normal (applies to non-numeric results) [facility] Urobilinogen,Urine Normal Normal (applies to non-numer ic results) [facility] Leukocyte Esterase,Urine Negative Normal (applies to non -numeric results) [facility] Nitrite,Urine Negative Normal (applies to non-numeric re sults) [facility] ID Date Data Source [id number] 09/10/2019 08:52:00 PM [facility] Procedure Performed By: [facility] [address] [place] [id number] Director: Aj Blanca MD Procedure Performed By: [facility] [address] [place] [address] Director: Aj Blanca MD Name Value Range Interpretation Code Description Data Asha rce(s) Supporting Document(s) Urine Culture [facility] ID Date Data Source [id number] 09/12/2019 06:44:00 PM EST [facility] Value Range Interpretation Code Description Data Asha rce(s) Supporting Document(s) CPK result 172 U/L 39-308 Normal (applies to non-numeric resul ts) [facility] Test Performed By: [facility] [address] [place] [address] Director: Angela Blanca MD ID Date Data Source [id number] 09/12/2019 06:44:00 PM EST [facility] Name Value Range Interpretation Code Description Data Asha rce(s) Supporting Document(s) Hep Bs Ag result T-Test Nonreactive Normal (applies to non -numeric results) [facility] Test Performed By: [facility] [address] [place] [address] Director: Angela Blanca MD ID Date Data Source [id number] 09/12/2019 06:44:00 PM [facility] Value Range Interpretation Code Description Data Asha rce(s) Supporting Document(s) Hepatitis C Virus Ab result Nonreactive Norm al (applies to non-numeric results) [facility] Test Performed By: [facility] [address] [place] [address] Director: Angela Blanca MD ID Date Data Source [id number] 09/12/2019 06:44:00 PM EST [facility] Value Range Interpretation Code Description Data Asha rce(s) Supporting Document(s) Syphilis Serology result Nonreactive Normal (applies to non-numeric results) [facility] Test Performed By: [facility] [address] [place] [address] Director: Angela Blanca MD ID Date Data Source [id number] 09/12/2019 06:44:00 PM EST [facility] Name Value Range Interpretation Code Description Data Asha rce(s) Supporting Document(s) Chlamydia,Urine result Negative Very abnormal (applies t o non-numeric units [facility] Test Performed By: [facility] [address] [place] [address] Director: Angela Blanca MD . THIS IS A STATE REPORTABLE COMMUNICABLE DISEASE. Results called 09/12/19 173, Andria Prakash MT @ lab read back information to LAB.BRIE PEREZ M read back information 09/12/19 1823 LAB.ERMELINDA GC Urine result Negative Normal (applies to non-numeric results) [facility] Test Performed By: [facility] [address] [place] [address] Director: Angela Blanca MD . Methodology: Second generation nucleic acid amplification. ID Date Data Source [id number] 09/12/2019 05:37:00 PM EST [facility] Name Value Range Interpretation Code Description Data Asha rce(s) Supporting Document(s) Chlamydia,Urine Negative [facility] Test Performed By: [facility] [address] [place] [address] Director: Angela Blanca MD . THIS IS A STATE REPORTABLE COMMUNICABLE DISEASE. Results called 09/12/191733, Andria Prakash MT @ lab read back information to LAB.BRIE Test Performed By: [facility] [address] [place] [address] Director: Angela Blanca MD . Methodology: Second generation nucleic acid amplification. ID Date Data Source [id number] 09/10/2019 09:24:00 AM EST [facility] Procedure Performed By: [facility] [address] [place] [address] Director: Aj Blanca MD Name Value Range Interpretation Code Description Data Asha rce(s) Supporting Document(s) Urine Culture [facility] ID Date Data Source [id number] 09/08/2019 07:00:00 PM EST [facility] Name Value Range Interpretation Code Description Data Asha rce(s) Supporting Document(s) Hep C Ab-T Test Nonreactive Normal (applies to non-numeric results) [facility] Test Performed By: [facility] [address] [place] [address] Director: Angela Blanca MD ID Date Data Source [id number] 09/08/2019 07:00:00 PM EST [facility] Name Value Range Interpretation Code Description Data Asha rce(s) Supporting Document(s) Hep Bs Ag Result T-Test Nonreactive Normal (applies to non -numeric results) [facility] Test Performed By: [facility] [address] [place] [address] Director: Angela Blanca MD ID Date Data Source [id number] 09/08/2019 07:00:00 PM EST [facility] Name Value Range Interpretation Code Description Data Asha rce(s) Supporting Document(s) Syphilis Serology Nonreactive Normal (applies to non-numer ic results) [facility] Performed By: [facility] [address] [place] [address] Director: Angela Blanca MD ID Date Data Source [id number] 09/08/2019 06:02:00 PM EST [facility] Value Range Interpretation Code Description Data Asha rce(s) Supporting Document(s) CPK 172 U/L 39-308 Normal (applies to non-numeric resul ts) [facility] Test Performed By: [facility] [address] [place] [address] Director: Angela Blanca MD ID Date Data Source [id number] 09/08/2019 01:50:00 PM EST [facility] Name Value Range Interpretation Code Description Data Asha rce(s) Supporting Document(s) Sodium 140 mmol/L 136-145 Normal (applies to non-numeric resul ts) [facility] Potassium 3.5-5.1 Normal (applies to non-numeric resul ts) [facility] Chloride 101 mmol/L 98-107 Normal (applies to non-numeric resul ts) [facility] Carbon Dioxide CO2 21-32 Normal (applies to non-numer ic results) [facility] Anion Gap 5.0-16.0 Normal (applies to non-numeric resul ts) [facility] BUN 13 mg/dL 7-18 Normal (applies to non-numeric results) [facility] Creatinine,Serum 0.8-1.5 Normal (applies to non-numeric results) [facility] GFR >60 Normal (applies to non-numeric results) [facility] Glucose Level 79 mg/dL 60-99 Normal (applies to non-numeric re sults) [facility] Reference range is only applicable when patient is fasting Note the following drug interference: Sulfasalazine Sulfapyridine Can see falsely depressed Can see falsely elevated result with up to 17% results with up to 11% decrease in measurement increase in measurement Recommend patients be collected for this test prior to administration of either drug. Calcium 8.5-10.1 Above high normal [facility]spital Bilirubin,Total 0.1-1.9 Normal (applies to non-numeric results) [facility] SGOT(AST) 17 U/L 15-37 Normal (applies to non-numeric resul ts) [facility] Note the following drug interference: Sulfasalazine Sulfapyridine Can see falsely depressed Can see falsely elevated result with up to 10% results with up to 10% decrease in measurement increase in measurement Recommend patients be collected for this test prior to administration of either drug. SGPT(ALT) 28 U/L 12-78 Normal (applies to non-numeric resul ts) [facility] Note the following drug interference: Sulfasalazine Sulfapyridine Can see falsely depressed Can see falsely elevated result with up to 29% results with up to 10% decrease in measurement increase in measurement Recommend patients be collected for this test prior to administration of either drug. Alkaline Phosphatase 89 U/L 38-126 Normal (applies to non-num meme results) [facility] can increase Alkaline Phosp le vels up to 2 times the normal adult value. Normal values for children and adolescents are 2 to 3 times the normal adult value. Total Protein 6.0-8.2 Normal (applies to non-numeric re sults) [facility] Albumin Level 3.4-5.0 Normal (applies to non-numeric re sults) [facility] ID Date Data Source [id number] 09/08/2019 01:50:00 PM [facility] Name Value Range Interpretation Code Description Data Asha rce(s) Supporting Document(s) Bilirubin,Direct 0.05-0.20 Above high normal [facility] ID Date Data Source [id number] 09/08/2019 01:50:00 PM [facility] Name Value Range Interpretation Code Description Data Asha rce(s) Supporting Document(s) Phosphorus 2.5-4.9 Below low normal [facility] ID Date Data Source [id number] 09/08/2019 01:50:00 PM [facility] Name Value Range Interpretation Code Description Data Asha rce(s) Supporting Document(s) Magnesium 1.8-2.4 Normal (applies to non-numeric resul ts) [facility] ID Date Data Source [id number] 09/08/2019 01:50:00 PM [facility] Name Value Range Interpretation Code Description Data Asha rce(s) Supporting Document(s) Thyroid Stimulate Hormone TSH 0.358-3.74 Below low normal [facility] ID Date Data Source [id number] 09/08/2019 01:40:00 PM [facility] Name Value Range Interpretation Code Description Data Asha rce(s) Supporting Document(s) Ethanol Less than 10.0 Normal (applies to non-numeric r esults) [facility] ID Date Data Source [id number] 09/08/2019 01:11:00 PM [facility] Name Value Range Interpretation Code Description Data Asha rce(s) Supporting Document(s) White Blood Count 3.5-10.5 Above high normal [facility] Red Blood Count 4.30-5.70 Above high normal [facility] Hemoglobin 13.5-17.5 Above high normal [facility] Hematocrit 38.8-50.0 Above high normal [facility] Mean Corpuscular Volume 81.2-95.1 Normal (applies to non- numeric results) [facility] Mean Corpuscular Hgb 25.6-32.2 Normal (applies to non-num meme results) [facility] Mean Corpuscular Hgb Conc 32.0-36.0 Normal (applies to no n-numeric results) [facility] Red Cell Distribution Width 11.8-15.6 Normal (appli es to non-numeric results) [facility] Platelet Count 249 x10 3/uL 150-450 Normal (applies to non-numeric results) [facility] Mean Platelet Volume 9.4-12.4 Normal (applies to non-num meme results) [facility] Neutrophils% (Auto) 31.0-71.0 Above high normal [facility] Lymphocytes% (Auto) 20.0-55.[address] [facility] Monocytes% (Auto) 4.0-12.0 Normal (applies to non-numeri c results) [facility] Eosinophils% (Auto) 1.0-8.[address] [facility] Basophils% (Auto) 0.0-2.0 Normal (applies to non-numeri c results) [facility] Immature Granulocytes% (Auto) 0.0-2.0 Normal (natty lies to non-numeric results) [facility] Neutrophils# (Auto) 1.50-6.20 Above high normal [facility] Lymphocytes# (Auto) 1.20-4.00 Normal (applies to non-nume oliver results) [facility] Monocytes# (Auto) 0.00-0.90 Normal (applies to non-numeri c results) [facility] Eosinophils# (Auto) 0.00-0.50 Normal (applies to non-nume oliver results) [facility] Basophils# (Auto) 0.00-0.20 Normal (applies to non-numeri c results) [facility] Immature Granulocytes# (Auto) 0.00-7.00 No rmal (applies to non-numeric results) [facility] ID Date Data Source [id number] 09/08/2019 01:16:00 PM [facility] Name Value Range Interpretation Code Description Data Asha rce(s) Supporting Document(s) UDS Phencyclidine Screen Negative Normal (applies to non -numeric results) [facility] UDS Benzodiazepines Screen Negative Normal (applies to n on-numeric results) [facility] UDS Cocaine Screen Negative Rueda [facility] UDS Ampetamine Screen Negative Normal (applies to non-nu meric results) [facility] UDS Cannabinoids Screen Negative Normal (applies to non- numeric results) [facility] UDS Opiates Screen Negative Rueda [facility] UDS Barbiturates Screen Negative Normal (applies to non- numeric results) [facility] UDS Tricyclic Screen Negative Normal (applies to non-num meme results) [facility] Therapeutic Drug Ranges for Emergency Threshold Levels [...] treatment purposes only. ID Date Data Source [id number] 09/08/2019 01:14:00 PM [facility] Collected By: Nurse's Aide Initials: at Collected By: Nurse's Aide Initials: at Name Value Range Interpretation Code Description Data Asha rce(s) Supporting Document(s) Color,Urine Colorl-Dk Y Normal (applies to non-numeric res ults) [facility] Clarity,Urine Clear Normal (applies to non-numeric re sults) [facility] Specific [place],Urine 1.015-1.025 Normal (applies to non- numeric results) [facility] pH,Urine 5.0-7.0 Normal (applies to non-numeric resul ts) [facility] Protein,Urine Negative [facility] Glucose,Urine Negative Normal (applies to non-numeric re sults) [facility] Ketones,Urine Negative [facility] Blood,Urine Negative Normal (applies to non-numeric resu lts) [facility] Bilirubin,Urine Negative Normal (applies to non-numeric results) [facility] Urobilinogen,Urine Normal Normal (applies to non-numer ic results) [facility] Leukocyte Esterase,Urine Negative [facility] Nitrite,Urine Negative Normal (applies to non-numeric re sults) [facility] ID Date Data Source [id number] 09/08/2019 01:14:00 PM [facility] Collected By: Nurse's Aide Initials: at Collected By: Nurse's Aide Initials: at Name Value Range Interpretation Code Description Data Asha rce(s) Supporting Document(s) RBC,Urine None Seen Normal (applies to non-numeric resul ts) [facility] WBC,Urine None Seen [facility] Casts,Urine None Seen Normal (applies to non-numeric resu lts) [facility] Squamous Cells,Urine None Seen [facility] Amorphous Sediment,Urine None Seen [facility] Bacteria,Urine None Seen Normal (applies to non-numeric r esults) [facility] Mucus,Urine [facility] Vital [facility]s ID Date Data Source [id number] 08/06/2020 09:34:00 PM [facility] Name Value Range Interpretation Code Description Data Source(s) Weight (Calculated Kilograms) 65.77 65.77 [facility] Weight 2320 2320 [facility] Temperature Source 7 7 [facility] Temperature 97.9 97.9 [facility] Respiratory Effort 1 1 [facility] Respiratory Rate 16 16 [facility] Pulse Assessment Method 4 4 G [facility] Pulse Rate 63 63 [facility] Height (Calculated Centimeters) 165.1 165. 1 [facility] Height 65 65 [facility] Blood Pressure 125/77 125/77 [facility] Body Mass Index (BMI) [address] [facility] Weight (Calculated Kilograms) 65.77 65.77 [facility] Weight 2320 2320 [facility] Temperature Source 7 7 [facility] Temperature 97.9 97.9 [facility] Respiratory Effort 1 1 [facility] Respiratory Rate 16 16 [facility] Pulse Assessment Method 4 4 G [facility] Pulse Rate 63 63 [facility] Height (Calculated Centimeters) 165.1 165. 1 [facility] Height 65 65 [facility] Blood Pressure 125/77 125/77 [facility] Body Mass Index (BMI) [address] [facility] Weight (Calculated Kilograms) 65.77 65.77 [facility] Weight 2320 2320 [facility] Temperature Source 7 7 [facility] Temperature 97.9 97.9 [facility] Respiratory Effort 1 1 [facility] Respiratory Rate 16 16 [facility] Pulse Assessment Method 4 4 G [facility] Pulse Rate 63 63 [facility] Height (Calculated Centimeters) 165.1 165. 1 [facility] Height 65 65 [facility] Blood Pressure 125/77 125/77 [facility] Body Mass Index (BMI) [address] [facility] Weight (Calculated Kilograms) 65.77 65.77 [facility] Weight 2320 2320 [facility] Temperature Source 7 7 [facility] Temperature 97.9 97.9 [facility] Respiratory Effort 1 1 [facility] Respiratory Rate 16 16 [facility] Pulse Assessment Method 4 4 G [facility] Pulse Rate 63 63 [facility] Height (Calculated Centimeters) 165.1 165. 1 [facility] Height 65 65 [facility] Blood Pressure 125/77 125/77 [facility] Body Mass Index (BMI) [address] [facility] Weight (Calculated Kilograms) 65.77 65.77 [facility] Weight 2320 2320 [facility] Temperature Source 7 7 [facility] Temperature 97.6 97.6 [facility] Respiratory Effort 1 1 [facility] Respiratory Rate 18 18 [facility] Pulse Assessment Method 4 4 G [facility] Pulse Rate 86 86 [facility] Height (Calculated Centimeters) 165.1 165. 1 [facility] Height 65 65 [facility] Blood Pressure 135/76 135/76 [facility] Body Mass Index (BMI) [address] [facility] Weight (Calculated Kilograms) 65.77 65.77 [facility] Weight 2320 2320 [facility] Temperature Source 7 7 [facility] Temperature 98.8 98.8 [facility] Respiratory Effort 1 1 [facility] Respiratory Rate 18 18 [facility] Pulse Assessment Method 4 4 G [facility] Pulse Rate 62 62 [facility] Height (Calculated Centimeters) 165.1 165. 1 [facility] Height 65 65 [facility] Blood Pressure 117/59 117/59 [facility] Body Mass Index (BMI) [address] [facility] Weight (Calculated Kilograms) 65.77 65.77 [facility] Weight 2320 2320 [facility] Temperature Source 7 7 [facility] Temperature 99.0 99.0 [facility] Respiratory Effort 1 1 [facility] Respiratory Rate 17 17 [facility] Pulse Assessment Method 4 4 G [facility] Pulse Rate 84 84 [facility] Height (Calculated Centimeters) 165.1 165. 1 [facility] Height 65 65 [facility] Blood Pressure 133/63 133/63 [facility] Body Mass Index (BMI) [address] [facility] Weight (Calculated Kilograms) 76.20 76.20 [facility] Height (Calculated Centimeters) 167.64 167. 64 [facility] Body Mass Index (BMI) 27.[address] [facility] ID Date Data Source [id number] 01/12/2020 08:25:00 AM EDT [facility] Name Value Range Interpretation Code Description Data Source(s) Weight (Calculated Kilograms) 74.93 74.93 [facility] Height (Calculated Centimeters) 167.64 167. 64 [facility] Body Mass Index (BMI) 26.[address] [facility] Weight (Calculated Kilograms) 74.93 74.93 [facility] Height (Calculated Centimeters) 167.64 167. 64 [facility] Body Mass Index (BMI) 26.[address] [facility] ID Date Data Source [id number] 01/12/2020 04:33:00 AM EDT [facility] Name Value Range Interpretation Code Description Data Source(s) Weight Measurement Method 1 1 [facility] Weight (Calculated Kilograms) 76.20 76.20 [facility] [facility] Weight 2688 2688 [facility] pital Temperature Source 7 7 [facility] Temperature 98.3 98.3 [facility] spital Respiratory Effort 1 1 [facility] Respiratory Rate 18 18 [facility] Pulse Assessment Method 4 4 G [facility] Pulse Rate 44 44 [facility] pital Height (Calculated Centimeters) 167.64 167. 64 [facility] Height 66 66 [facility] p[facility] Blood Pressure 125/74 125/74 [facility] Body Mass Index (BMI) 27.[address] [facility] [place] Weight Measurement Method 1 1 [facility] Weight (Calculated Kilograms) 76.20 76.20 [facility] Weight 2688 2688 [facility] pital Temperature Source 7 7 [facility] Temperature 98.3 98.3 [facility] spital Respiratory Effort 1 1 [facility] Respiratory Rate 18 18 [facility] Pulse Assessment Method 4 4 G [facility] Pulse Rate 44 44 [facility] pital Height (Calculated Centimeters) 167.64 167. 64 [facility] Height 66 66 [facility] p[facility] Blood Pressure 125/74 125/74 [facility] Body Mass Index (BMI) 27.[address] [facility] [place] Weight Measurement Method 1 1 [facility] Weight (Calculated Kilograms) 76.20 76.20 [facility] Weight 2688 2688 [facility] pital Temperature Source 7 7 [facility] Temperature 98.3 98.3 [facility] spital Respiratory Effort 1 1 [facility] Respiratory Rate 18 18 [facility] Pulse Assessment Method 4 4 G [facility] Pulse Rate 44 44 [facility] pital Height (Calculated Centimeters) 167.64 167. 64 [facility] Height 66 66 [facility] 125/74 125/74 [facility] Body Mass Index (BMI) 27.[address] [facility] [place] Weight Measurement Method 1 1 [facility] Weight (Calculated Kilograms) 76.20 76.20 [facility] Weight 2688 2688 [facility] pital Temperature Source 7 7 [facility] Temperature 99.6 99.6 [facility] spital Respiratory Effort 1 1 [facility] Respiratory Rate 16 16 [facility] Pulse Assessment Method 1 1 [facility] Pulse Rate 59 59 [facility] pital Height (Calculated Centimeters) 167.64 167. 64 [facility] Height 66 66 [facility] Blood Pressure 130/68 130/68 [facility] Body Mass Index (BMI) 27.[address] [facility] [place] Weight Measurement Method 1 1 [facility] Weight (Calculated Kilograms) 76.20 76.20 [facility] Weight 2688 2688 [facility] pital Temperature Source 7 7 [facility] Temperature 98.1 98.1 [facility] spital Respiratory Effort 1 1 [facility] Respiratory Rate 18 18 [facility] Pulse Assessment Method 1 1 [facility] Pulse Rate 71 71 [facility] pital Height (Calculated Centimeters) 167.64 167. 64 [facility] Height 66 66 [facility] Blood Pressure 123/70 123/70 [facility] Body Mass Index (BMI) 27.[address] [facility] [place] Weight (Calculated Kilograms) 74.93 74.93 [facility] Height (Calculated Centimeters) 167.64 167. 64 [facility] Body Mass Index (BMI) 26.[address] [facility] [place] Weight (Calculated Kilograms) 74.93 74.93 [facility] Height (Calculated Centimeters) 167.64 167. 64 [facility] Body Mass Index (BMI) 26.[address] [facility] [place] ID Date Data Source [id number] 12/21/2019 11:34:00 AM EDT [facility] spital Name Value Range Interpretation Code Description Data Source(s) Weight (Calculated Kilograms) 74.93 74.93 [facility] Height (Calculated Centimeters) 167.64 167. 64 [facility] Body Mass Index (BMI) 26.[address] [facility] [place] Weight (Calculated Kilograms) 74.93 74.93 [facility] Height (Calculated Centimeters) 167.64 167. 64 [facility] Body Mass Index (BMI) 26.[address] [facility] [place] ID Date Data Source [id number] 12/14/2019 11:32:00 AM EDT [facility] spital Name Value Range Interpretation Code Description Data Source(s) Weight (Calculated Kilograms) 74.93 74.93 [facility] Height (Calculated Centimeters) 167.64 167. 64 [facility] Body Mass Index (BMI) 26.[address] [facility] [place] Weight (Calculated Kilograms) 74.93 74.93 [facility] Height (Calculated Centimeters) 167.64 167. 64 [facility] Body Mass Index (BMI) 26.[address] [facility] [place] ID Date Data Source [id number] 12/06/2019 02:33:00 PM EDT [facility] spital Name Value Range Interpretation Code Description Data Source(s) Weight (Calculated Kilograms) 74.93 74.93 [facility] Height (Calculated Centimeters) 167.64 167. 64 [facility] Body Mass Index (BMI) 26.[address] [facility] [place] Weight (Calculated Kilograms) 74.93 74.93 [facility] Height (Calculated Centimeters) 167.64 167. 64 [facility] Body Mass Index (BMI) 26.[address] ID Date Data Source [id number] 11/23/2019 12:03:00 PM [facility] spital Name Value Range Interpretation Code Description Data Source(s) Weight (Calculated Kilograms) 74.93 74.93 [facility] Height (Calculated Centimeters) 167.64 167. 64 [facility] Body Mass Index (BMI) 26.[address] [place] [address] Weight (Calculated Kilograms) 74.93 74.93 [facility] Height (Calculated Centimeters) 167.64 167. 64 [facility] Body Mass Index (BMI) 26.[address] [place] [address] ID Date Data Source [id number] 11/15/2019 10:52:00 AM EST [facility] sp[facility] Name Value Range Interpretation Code Description Data Source(s) Weight (Calculated Kilograms) 74.93 74.93 [facility] Height (Calculated Centimeters) 167.64 167. 64 [facility] Body Mass Index (BMI) 26.[address] Weight (Calculated Kilograms) 74.93 74.93 [facility] Height (Calculated Centimeters) 167.64 167. 64 [facility] Body Mass Index (BMI) 26.[address] ID Date Data Source [id number] 10/19/2019 08:00:00 AM EST [facility] spital Name Value Range Interpretation Code Description Data Source(s) Weight (Calculated Kilograms) 74.93 74.93 [facility] Height (Calculated Centimeters) 167.64 167. 64 [facility] Body Mass Index (BMI) 26.[address] [place] [address] Weight (Calculated Kilograms) 74.93 74.93 [facility] Height (Calculated Centimeters) 167.64 167. 64 [facility] Body Mass Index (BMI) 26.[address] [facility] [place] ID Date Data Source [id number] 10/13/2019 01:20:00 PM [facility] Name Value Range Interpretation Code Description Data Source(s) Weight (Calculated Kilograms) 74.93 74.93 [facility] Height (Calculated Centimeters) 167.64 167. 64 [facility] Body Mass Index (BMI) 26.[address] Weight (Calculated Kilograms) 74.93 74.93 [facility] Height (Calculated Centimeters) 167.64 167. 64 [facility] Body Mass Index (BMI) 26.[address] ID Date Data Source [id number] 10/05/2019 02:01:00 PM EST [facility] spital Name Value Range Interpretation Code Description Data Source(s) Weight (Calculated Kilograms) 74.93 74.93 [facility] Height (Calculated Centimeters) 167.64 167. 64 [facility] Body Mass Index (BMI) 26.[address] Weight (Calculated Kilograms) 74.93 74.93 [facility] Height (Calculated Centimeters) 167.64 167. 64 [facility] Body Mass Index (BMI) 26.[address] ID Date Data Source [id number] 10/05/2019 01:52:00 PM EST [facility] Name Value Range Interpretation Code Description Data Source(s) Weight (Calculated Kilograms) 74.93 74.93 [facility] Height (Calculated Centimeters) 167.64 167. 64 [facility] Body Mass Index (BMI) 26.[address] Weight (Calculated Kilograms) 74.93 74.93 [facility] Height (Calculated Centimeters) 167.64 167. 64 [facility] Body Mass Index (BMI) 26.[address] [facility] [place] ID Date Data Source [id number] 09/21/2019 01:52:00 PM EST [facility] spital Name Value Range Interpretation Code Description Data Source(s) Weight (Calculated Kilograms) 74.93 74.93 [facility] Height (Calculated Centimeters) 167.64 167. 64 [facility] Body Mass Index (BMI) 26.[address] Weight (Calculated Kilograms) 74.93 74.93 [facility] Height (Calculated Centimeters) 167.64 167. 64 [facility] Body Mass Index (BMI) 26.[address] ID Date Data Source [id number] 10/12/2019 12:12:00 AM EST [facility] spital Name Value Range Interpretation Code Description Data Source(s) Weight Measurement Method 1 1 [facility] Weight (Calculated Kilograms) 74.93 74.93 [facility] Weight 2643.2 2643.2 [facility] pital Temperature Source 7 7 [facility] Temperature 98.7 98.7 [facility] spital Respiratory Effort 1 1 [facility] Respiratory Rate 18 18 [facility] Pulse Assessment Method 4 4 G [facility] Pulse Rate 59 59 [facility] pital Height (Calculated Centimeters) 167.64 167. 64 [facility] Height 66 66 [facility] pital Blood Pressure 132/83 132/83 [facility] Body Mass Index (BMI) 26.[address] Weight Measurement Method 1 1 [facility] Weight (Calculated Kilograms) 74.93 74.93 [facility] Weight 2643.2 2643.2 [facility] pital Temperature Source 7 7 [facility] Temperature 98.7 98.7 [facility] spital Respiratory Effort 1 1 [facility] Respiratory Rate 18 18 [facility] Pulse Assessment Method 4 4 G [facility] Pulse Rate 59 59 [facility] pital Height (Calculated Centimeters) 167.64 167. 64 [facility] Height 66 66 [facility] pital Blood Pressure 132/83 132/83 [facility] Body Mass Index (BMI) 26.6 26.6 [facility] Weight Measurement Method 1 1 [facility] Weight (Calculated Kilograms) 74.93 74.93 [facility] Weight 2643.2 2643.2 [facility] pital Temperature Source 7 7 [facility] Temperature 98.7 98.7 [facility] Respiratory Effort 1 1 [facility] Respiratory Rate 18 18 [facility] Pulse Assessment Method 4 4 G [facility] Pulse Rate 59 59 [facility] pital Height (Calculated Centimeters) 167.64 167. 64 [facility] Height 66 66 [facility] pital Blood Pressure 132/83 132/83 [facility] Body Mass Index (BMI) 26.[address] [facility] [place] Weight Measurement Method 1 1 [facility] Weight (Calculated Kilograms) 74.93 74.93 [facility] Weight 2643.2 2643.2 [facility] pital Temperature Source 7 7 [facility] Temperature 98.2 98.2 [facility] Respiratory Effort 1 1 [facility] Respiratory Rate 22 22 [facility] Pulse Assessment Method 4 4 G [facility] Pulse Rate 62 62 [facility] pital Height (Calculated Centimeters) 167.64 167. 64 [facility] Height 66 66 [facility] pital Blood Pressure 140/95 140/95 [facility] Body Mass Index (BMI) [address] [facility] [place] Weight Measurement Method 1 1 [facility] Weight (Calculated Kilograms) 74.93 74.93 [facility] Weight 2643.2 2643.2 [facility] pital Temperature Source 7 7 [facility] Temperature 98.3 98.3 [facility] Respiratory Effort 1 1 [facility] Respiratory Rate 22 22 [facility] Pulse Assessment Method 4 4 G [facility] Pulse Rate 57 57 [facility] pital Height (Calculated Centimeters) 167.64 167. 64 [facility] Height 66 66 [facility] pital Blood Pressure 140/95 140/95 [facility] Body Mass Index (BMI) [address] [facility] [place] Weight (Calculated Kilograms) 74.12 74.12 [facility] Height (Calculated Centimeters) 167.64 167. 64 [facility] Body Mass Index (BMI) 26.[address] [facility] [place] ID Date Data Source [id number] 09/13/2019 07:18:00 PM EST [facility] spital Name Value Range Interpretation Code Description Data Source(s) Weight (Calculated Kilograms) 74.12 74.12 [facility] Height (Calculated Centimeters) 167.64 167. 64 [facility] Body Mass Index (BMI) 26.[address] [facility] [place] ID Date Data Source [id number] 09/12/2019 06:44:00 PM EST [facility] spital Name Value Range Interpretation Code Description Data Source(s) Weight (Calculated Kilograms) 74.12 74.12 [facility] Weight 2614.4 2614.4 [facility] pital Temperature Source 7 7 [facility] Temperature 98.9 98.9 [facility] spital Respiratory Effort 1 1 [facility] Respiratory Rate 16 16 [facility] Pulse Assessment Method 4 4 [facility] Pulse Rate 95 95 [facility] Height (Calculated Centimeters) 167.64 167. 64 [facility] Height 66 66 [facility] pital Blood Pressure 113/71 113/71 [facility] Body Mass Index (BMI) [address] [facility] [place] Weight (Calculated Kilograms) 74.12 74.12 [facility] Weight 2614.4 2614.4 [facility] pital Temperature Source 7 7 [facility] Temperature 98.9 98.9 [facility] spital Respiratory Effort 1 1 [facility] Respiratory Rate 16 16 [facility] Pulse Assessment Method 4 4 G [facility] Pulse Rate 95 95 [facility] pital Height (Calculated Centimeters) 167.64 167. 64 [facility] Height 66 66 [facility] pital Blood Pressure 113/71 113/71 [facility] Body Mass Index (BMI) 26.[address] [facility] [place]
[2020-10-31 04:31] LABS: WHITE BLOOD COUNT 11.8 10^3/uL (4.0-10.0)
--- NOTE | 2020-10-31 09:37 | ECGEPIP ---
[facility] - ED Test Date: 2020-10-31 Pat Name: DANAE ZULUAGA Department: Room: - Gender: Male [employer] Member: : 1990 Requested By: DARREN Morrell Order Number: [id number] Reading MD: Fady Correa Measurements Intervals [place] Rate: 103 P: 78 ND: 140 QRS: 85 QRSD: 80 T: 61 QT: 332 QTc: 437 Interpretive Statements SINUS TACHYCARDIA NO PRIORS FOR COMPARISON Electronically Signed on 10-31-2020 9:37:24 EST by Fady Correa
== END 2020-10-31 04:19 | disposition left against medical advice (07) ==
LOC: M ED 02:04
DX: F11.10 Opioid abuse, uncomplicated (principal); F17.210 Nicotine dependence, cigarettes, uncomplicated